=== PATIENT | male | born 1950 | race Caucasian/White ===

== ENCOUNTER 2016-07-04 19:31 | Emergency (ER) | payer MEDICARE, OTHER ==
--- NOTE | 2016-07-04 20:38 | ERNOTE ---
ER Male HPI Stated Complaint: ABD PAIN Time Seen by Provider: 07/04/16 20:18 Source: patient Exam Limitations: no limitations Immunizations: IMMUNIZATION HX Immunizations Up to Date Yes History of Influenza Vaccine Yes Hx Pneumococcal Vaccination No Allergies/Adverse Reactions: Allergies No Known Allergies Allergy (Verified 05/11/14 17:08) Home Medications: HOME MEDICATIONS Budesonide/Formoterol Fumarate [Symbicort 160-4.5 Mcg Inhaler] 2 puff IH BID #0 05/13/14 [Last Taken Unknown] DULoxetine HCL [Cymbalta] 30 mg PO BID capsule.sa 05/13/14 [Last Taken Unknown] Metoprolol Tartrate [Lopressor] 50 mg PO BID #0 05/13/14 [Last Taken Unknown] Montelukast Sodium [Singulair] 10 mg PO DAILY #0 05/13/14 [Last Taken Unknown] Oxybutynin Chloride [Ditropan Xl] 10 mg PO HS #0 05/13/14 [Last Taken Unknown] Tiotropium [place] [Spiriva] 1 cap IH DAILY #0 05/13/14 [Last Taken Unknown] Amitriptyline HCl [Elavil] 10 mg PO HS 07/04/16 [Last Taken Unknown] Amlodipine Besylate 5 mg PO DAILY 07/04/16 [Last Taken Unknown] Benazepril HCl [Lotensin] 10 mg PO DAILY 07/04/16 [Last Taken Unknown] Buspirone HCl 15 mg PO TID 07/04/16 [Last Taken Unknown] Furosemide [Lasix] 50 mg PO DAILY 07/04/16 [Last Taken Unknown] Glipizide/Metformin HCl [Glipizide-Metformin 5-500 mg] 1 each PO BID 07/04/16 [ Last Taken Unknown] Hydrocodone Bit/Acetaminophen 07/04/16 [Last Taken Unknown] Meloxicam [Mobic] 15 mg PO DAILY 07/04/16 [Last Taken Unknown] Omeprazole 20 mg PO DAILY 07/04/16 [Last Taken Unknown] Potassium Chloride [Klor-Con M10] 10 meq PO DAILY 07/04/16 [Last Taken Unknown] Ziprasidone HCl [Geodon] 20 mg PO HS 07/04/16 [Last Taken Unknown] clonazePAM [Klonopin] 0.5 mg PO BID 07/04/16 [Last Taken Unknown] Methylprednisolone [Medrol Dosepak] 4 mg PO DAILY #21 tab.ds.pk 07/05/16 [Last Taken Unknown] - History of Present Illness Narrative: Pt states he has had "kidney pain" for about a month. He thought initially that he had pulled a muscle but then began having difficulty with urinary incontinence and urgency. He states his urine is dark or orange colored. He is afraid that all the medicines that he has taken for many years are ruining his kidneys. Timing: Present: getting worse Quality: Present: moderate Onset Location: Present: right flank Radiation: Present: none Activities at Onset: Present: other - fall 1 month ago on to his back from standing Prior Abdominal Problems: Present: recent trauma Modifying Factors - (Improves): Present: lying down Modifying Factors - (Worsens): Present: movement Review of Systems - Review of Systems Constitutional: Present: no symptoms reported EYE: Present: no symptoms reported ENT: Present: no symptoms reported Respiratory: Absent: shortness of breath, wheezing Cardiology: Absent: chest pain Gastrointestinal/Abdominal: Absent: nausea, vomiting Genitourinary: Present: frequency - and has a hard time, other - difficulty getting to the bathroom without leaking Musculoskeletal: Present: back pain, muscle stiffness Skin: Present: no symptoms reported Neurological: Present: weakness - in his legs, at times they would just "give out" - Patient's Past Medical History Patient History - Medical: Anxiety, Chronic Pain, Diabetes Type 2, Depression, Osteoarthritis, Renal Disease Patient History - Cardiac/Respiratory: COPD, Hypertension Patient History - Cancer: No Hx of Cancer Patient History - Surgical Procedures: Other Patient History - Other: None - Social History Living Situations: home Abuse History: No History of abuse Psych History: Hx of Anxiety, Hx of Depression, Current tx/ever been on anti- depressants or anti-anxiety meds Smoking Status: Current every day smoker Have you smoked in the past 12 months: Yes Patient requests Smoking Cessation Consult: No Initiate information on Smoking Cessation: No Alcohol Use: none Drug Use: none - Immunizations Immunizations Up to Date: Yes Hx Pneumococcal Vaccination: No History of Influenza Vaccine: Yes Physical Exam - Physical Exam General Appearance: Present: wd/wn, alert, mild distress Eye Exam: Normal inspection: bilateral, PERRL: bilateral, EOMI: bilateral Ears, Nose, Throat: Present: normal ENT inspection Neck: Present: normal inspection, nontender Respiratory: Present: no respiratory distress, normal breath sounds, lungs clear Cardiovascular/Chest: Present: regular rate, rhythm, no murmur Gastrointestinal/Abdominal: Present: normal bowel sounds, nontender, soft, no organomegaly. Absent: guarding, rebound Back Exam: Present: CVA tenderness (R) - minimal. Absent: vertebral tenderness Extremity Exam: Present: extremity edema - L > R Neurological Exam: Present: alert, oriented, normal mood/affect, other - SLR negative bilateral Skin Exam: Present: normal color, cool/dry Lymphatic Exam: Present: no adenopathy ED Progress - Results and Orders Patient's Lab Results:: I have reviewed the patient's lab results. Results and Orders: Laboratory Tests 07/04/16 07/04/16 07/04/16 20:40 20:40 20:52 WBC 11.5 H Hgb 15.9 Hct 49.0 Plt Count 239 Sodium 141 Potassium 3.6 Chloride 105 Carbon Dioxide 26.9 Anion Gap 12.7 BUN 12 Creatinine 0.85 Est GFR (Non-Af Amer) 97 Random Glucose 77 Calcium 8.6 Total Bilirubin 0.4 AST 15 ALT 15 L Alkaline Phosphatase 103 Total Protein 6.9 Albumin 3.3 L Urine Color Yellow Urine Appearance Clear Urine pH 6.0 Ur Specific [place] 1.015 Urine Protein 30 H Urine Glucose (UA) Negative Urine Ketones Negative Urine Blood Negative Urine Nitrate Negative Urine Bilirubin Negative Prot Sulfosalicylic Acd Negative Urine Urobilinogen Normal Ur Leukocyte Esterase Negative Urine RBC 0-5 Urine WBC 0-5 Ur Epithelial Cells 0-5 Urine Bacteria None seen Urine Culture Comments No culture indicated - Vital Signs Patient's Vital Signs:: I have reviewed the patient's vital signs. Vital Signs: Vital Signs 07/04/16 19:31 Temperature 36.4 C L Pulse Rate 70 Respiratory 15 Rate Blood Pressure 165/83 O2 Sat by Pulse 95 Oximetry - X-Ray X-Ray #1 X-Ray: lumbosacral Interpretation: Reviewed by me X-ray Comments: IMPRESSION: NO ACUTE PROCESS. CHRONIC CHANGES ABOVE. Electronically signed by Armando Monteiro D.O.. - CT/Ultrasound CT/Ultrasound Narrative: CT lumbar spine. No acute osseous injury vertebral body heights maintained intact post. elements multilevel facet arthropathy mild levoscoliosis Neural canal stenosis at L4-5 - Progress/Reassessment Chief Complaint: Genitourinary Problem Progress:: Improved Progress Note-Subjective: 07/05/16 02:12 Pt still believes there is something more wrong with him. He cannot believe that it is related to his chronic back pain. I explained that his back will always give him trouble Departure Clinical Impression: Low back pain Qualifiers: Chronicity: acute Back pain laterality: right Sciatica presence: without sciatica Qualified Code(s): M54.5 - Low back pain - Departure Disposition: Home Follow Up Needed Condition: Fair Instructions: Back Pain, Adult, [id number] Additional Instructions: See your regular doctor if your pain does not improve. Referrals: Diony Camacho MD [Primary Care Provider] - Prescriptions: Methylprednisolone [Medrol Dosepak] 4 mg PO DAILY #21 tab.ds.pk
--- OUTSIDE RECORDS SUMMARY | 2016-07-04 20:47 | XMS REPORT | Continuity of Care Document ---
:1950 Author Organization [facility] ([facility]) Address [address] [place] [address] Phone [phone] Care Team Providers Name Role Phone Diony Gregory Primary Care Provider [phone] Source Comments This disclosure is being made pursuant to the Care Everywhere program, applicable federal and state laws, and may not contain all informaitonavailable regarding this patient.[facility] ([facility]) Active Allergies and Adverse Reactions No Known Allergies Current Medications Prescription Sig. Disp. Refills Start Date End Date Status HYDROcodone-acetaminop Take 1 Tab by mouth 60 Tab 0 05/29/2014 Active hen 10-325 mg per every 6 hours as tablet needed. Not to exceed 2 prn doses /24 hrs Indications: breakthrough pain ciprofloxacin HCl 500 Take 1 Tab (500 mg 14 Tab 0 06/16/2014 Active mg tablet total) by mouth 2 times daily doxycycline Take 1 Tab (100 mg 14 Tab 0 06/16/2014 Active monohydrate 100 mg total) by mouth 2 tablet times daily budesonide-formoterol Use 2 Puffs by 10.2 g 11 07/10/2014 Active (SYMBICORT) 160-4.5 inhalation 2 times mcg/Actuation inhaler daily benazepril 10 mg Take 10 mg by mouth 2 09/14/2015 Active tablet daily. busPIRone 15 mg tablet Take 15 mg by mouth 3 2 10/05/2015 Active times daily. NIFEdipine 60 mg ER Take 60 mg by mouth 2 09/14/2015 Active tablet daily. omeprazole 20 mg take 1 capsule (20 11 10/26/2015 Active enteric coated capsule mg) by oral route once daily before a meal albuterol 2.5 mg/3 mL Use 3 mL by Active inhalation solution inhalation every 4 hours as needed. montelukast 10 mg Take 10 mg by mouth Active tablet daily. tiotropium (SPIRIVA) Use 18 mcg by Active 18 mcg inhalation inhalation daily. capsule glyBURIDE-metFORMIN Take 1 tablet by Active 5-500 mg per tablet mouth every morning with breakfast. oxybutynin 10 mg CR Take 10 mg by mouth Active tablet daily. Active Problems Not on file Social History Tobacco Use Types Packs/Day Years Used Date Current Every Day Smoker Smokeless Tobacco: Never Used Tobacco Cessation:Ready to Quit: No; Counseling Given: Yes Comments: Last Filed Vital Signs Vital Sign Reading Time Taken Blood Pressure 183/106 11/11/2015 3:19 PM CDT Pulse 64 11/11/2015 3:19 PM CDT Temperature 36.4 C (97.5 F) 11/11/2015 3:19 PM CDT Respiratory Rate - - Height 1.88 m (6' 2") 11/11/2015 3:19 PM CDT Weight 151.955 kg (335 lb) 11/11/2015 3:19 PM CDT Body Mass Index 42.99 11/11/2015 3:19 PM CDT Oxygen Saturation - - Plan of Care Health Maintenance Due Date Last Done Comments HCV Screening 1950 Hepatitis B Vaccine (1 of 3 - Primary Series) 1950 Tdap Vaccine 10/30/1963 Lipid Disorder Screening 1970 Td Vaccine 1970 Pneumococcal Vaccine (1 of 1 - PPSV23) 10/30/1971 Colonoscopy 2002 Prostate Cancer Screening 2002 Zoster Vaccine 2012 Influenza Vaccine: Seasonal Completed Results from Last 3 Months Not on file
[2016-07-04 20:53] LABS: Hemoglobin 15.9 gm/dL (13.5-18.0); Mean Cell Volume 90.6 fl (78-100); Mean Corpuscular Hemoglobin 29.4 pg (27-31); Mean Corpuscular Hgb Conc 32.4 g/dl (32-36); Mean Platelet Volume 9.1 fl (6.0-9.5); Neutrophil # 8.6 K/mm3 (1.3-6.0); Neutrophil % 74.7 % (42-75.0); Platelet Count 239 K/mm3 (150-450); Red Blood Count 5.41 M/mm3 (4.7-6.0); Red Cell Distribution Width 14.3 % (11.5-14.0); White Blood Count 11.5 K/mm3 (4.0-10.5)
[2016-07-04 21:07] LABS: Albumin * 3.3 gm/dl (3.4-5.0); Anion Gap 12.7 mmol/L (6.8-13.8); BUN/Creatinine Ratio 14.1 (9.0-21.6); Bilirubin, Total 0.4 mg/dL (0.0-1.1); Ca. Corrected For Albumin 8.8 mg/dL (8.4-10.2); Calcium * 8.6 mg/dL (7.9-10.9); Carbon Dioxide 26.9 mmol/L (24-32.6); Potassium 3.6 mmol/L (3.4-4.6); Total Protein 6.9 gm/dL (6.2-8.2)
[2016-07-04 21:10] LABS: Urine Bilirubin Negative (NEGATIVE); Urine Blood Negative /ul (NEGATIVE); Urine Ketone Negative (NEGATIVE); Urine Nitrite Negative (NEGATIVE); Urine Protein 30 mg/dL (NEGATIVE); Urine Specific Gravity 1.015 SP.GR. (1.005-1.030); Urine Urobilinogen Normal (NORMAL)
[2016-07-04 21:27] LABS: Urine Appearance Clear; Urine Bacteria None Seen; Urine Color Yellow; Urine RBC 0-5 /hpf (0-5); Urine WBC 0-5 /hpf (0-5)
[2016-07-05] MEDS ORDERED: METHYLPREDNISOLONE SOD SUCC/PF 40 MG/ML VIAL IV ONE (01:39)
[2016-07-05] MEDS ORDERED: METHYLPREDNISOLONE SOD SUCC/PF 40 MG/ML VIAL ONE (01:45)
[2016-07-05 02:17] VITALS: BP 148/87
== END 2016-07-05 02:16 | disposition home or self-care (01) ==
LOC: ER 19:31
DX: M54.5 Low back pain (principal); F17.200 Nicotine dependence, unspecified, uncomplicated; M19.90 Unspecified osteoarthritis, unspecified site; I10 Essential (primary) hypertension; J44.9 Chronic obstructive pulmonary disease, unspecified; F41.9 Anxiety disorder, unspecified; F32.9 Major depressive disorder, single episode, unspecified; E11.9 Type 2 diabetes mellitus without complications

== ENCOUNTER 2016-07-25 07:24 | Observation (INO) | payer MEDICARE, OTHER ==
--- NOTE | 2016-07-25 07:53 | ERNOTE ---
<Ko Phelps - Last Filed: 07/25/16 07:44> Lower Extremity HPI - Narrative Date of Service: 07/25/16 - General Lower Extremities Pain: hip: right, knee: right Time Seen by Provider: 07/25/16 07:36 Source: patient, EMS - Immun/Allergies/Home Medications Immunizations: IMMUNIZATION HX Immunizations Up to Date Yes History of Influenza Vaccine Yes Hx Pneumococcal Vaccination No Allergies/Adverse Reactions: Allergies Allergy/AdvReac Type Severity Reaction Status Date / Time No Known Allergies Allergy Verified 07/25/16 07:43 Home Medications: HOME MEDICATIONS Budesonide/Formoterol Fumarate [Symbicort 160-4.5 Mcg Inhaler] 2 puff IH BID #0 05/13/14 [Last Taken Unknown] DULoxetine HCL [Cymbalta] 30 mg PO BID capsule.sa 05/13/14 [Last Taken Unknown] Metoprolol Tartrate [Lopressor] 50 mg PO BID #0 05/13/14 [Last Taken Unknown] Montelukast Sodium [Singulair] 10 mg PO DAILY #0 05/13/14 [Last Taken Unknown] Oxybutynin Chloride [Ditropan Xl] 10 mg PO HS #0 05/13/14 [Last Taken Unknown] Tiotropium [place] [Spiriva] 1 cap IH DAILY #0 05/13/14 [Last Taken Unknown] Amitriptyline HCl [Elavil] 10 mg PO HS 07/04/16 [Last Taken Unknown] Amlodipine Besylate 5 mg PO DAILY 07/04/16 [Last Taken Unknown] Benazepril HCl [Lotensin] 10 mg PO DAILY 07/04/16 [Last Taken Unknown] Buspirone HCl 15 mg PO TID 07/04/16 [Last Taken Unknown] Furosemide [Lasix] 50 mg PO DAILY 07/04/16 [Last Taken Unknown] Glipizide/Metformin HCl [Glipizide-Metformin 5-500 mg] 1 each PO BID 07/04/16 [ Last Taken Unknown] Hydrocodone Bit/Acetaminophen 2 tab PO Q6H 07/04/16 [Last Taken Unknown] Meloxicam [Mobic] 15 mg PO DAILY 07/04/16 [Last Taken Unknown] Omeprazole 20 mg PO DAILY 07/04/16 [Last Taken Unknown] Potassium Chloride [Klor-Con M10] 10 meq PO DAILY 07/04/16 [Last Taken Unknown] clonazePAM [Klonopin] 2 mg PO BID 07/04/16 [Last Taken Unknown] Albuterol Sulfate [Albuterol Sulfate 2.5 MG/3 ML] 2.5 mg IH TID 07/25/16 [Last Taken Unknown] - History of Present Illness Narrative: 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 Has been using wheelchair for lower extremity hemiparesis. Yesterday was transferring from his wheelchair to the toilet when he fell. Says his right leg was caught behind him but he did not come to the hospital. This morning called the ambulance for continued pain in his right leg and difficultly using his leg. Previously had similar right lower abdominal pain on 07/05/[address] showed extensive degenerative disc disease of his lumbar spin. Loss of Consciousness: Reports: no loss of consciousness Review of Systems - Review of Systems Constitutional: Present: no symptoms reported Respiratory: Present: no symptoms reported Cardiology: Present: no symptoms reported Gastrointestinal/Abdominal: Present: no symptoms reported Skin: Present: no symptoms reported - Patient's Past Medical History Patient History - Medical: Anxiety, Chronic Pain, Diabetes Type 2, Depression, Osteoarthritis, Renal Disease Patient History - Cardiac/Respiratory: COPD, Hypertension Patient History - Cancer: No Hx of Cancer Patient History - Surgical Procedures: Other Patient History - Other: None - Social History Living Situations: alone Abuse History: No History of abuse Psych History: Hx of Anxiety, Hx of Depression, Current tx/ever been on anti- depressants or anti-anxiety meds Alcohol Use: none Drug Use: none - Immunizations Immunizations Up to Date: Yes Hx Pneumococcal Vaccination: No History of Influenza Vaccine: Yes Physical Exam - Physical Exam General Appearance: Present: wd/wn, alert, obese Ears, Nose, Throat: Present: normal ENT inspection Neck: Present: normal inspection Respiratory: Present: no respiratory distress Cardiovascular/Chest: Present: regular rate, rhythm Gastrointestinal/Abdominal: Present: nontender, soft Extremity Exam: Present: other - right knee tender along joint but no fluid, redness, and passive FROM. No localized thigh, calf tenderness. Diffuse non- pitting edema. ED Progress - Vital Signs Patient's Vital Signs:: I have reviewed the patient's vital signs. Vital Signs: Vital Signs 07/25/16 07:32 Temperature 37 C Pulse Rate 67 Respiratory 18 Rate Blood Pressure 149/76 O2 Sat by Pulse 95 Oximetry - Progress/Reassessment Chief Complaint: Lower Extremity Pain/ Injury - Transfer of Care Physician Sign Out: Ko Phelps Receiving Physician: Joni Saba Pending Results: Labs, X-ray results Expected Disposition: Discharge Departure Clinical Impression: Falls, Musculoskeletal pain, Intractable pain - Departure Disposition: [facility] Condition: Stable <Joni Saba - Last Filed: 07/25/16 14:08> Lower Extremity HPI - Immun/Allergies/Home Medications Immunizations: IMMUNIZATION HX Immunizations Up to Date Yes History of Influenza Vaccine Yes Hx Pneumococcal Vaccination No ED Progress - Results and Orders Patient's Lab Results:: I have reviewed the patient's lab results. - Vital Signs Patient's Vital Signs:: I have reviewed the patient's vital signs. Vital Signs: Vital Signs 07/25/16 07/25/16 07/25/16 07:32 08:10 08:47 Temperature 37 C Pulse Rate 67 70 72 Respiratory 18 Rate Blood Pressure 149/76 163/59 160/68 O2 Sat by Pulse 95 95 95 Oximetry 07/25/16 07/25/16 07/25/16 09:34 09:54 10:13 Temperature Pulse Rate 63 59 L 61 Respiratory 16 14 12 Rate Blood Pressure 150/70 145/77 142/68 O2 Sat by Pulse 95 95 95 Oximetry 07/25/16 07/25/16 07/25/16 10:27 10:42 10:55 Temperature Pulse Rate 74 72 66 Respiratory Rate Blood Pressure 148/106 160/84 159/60 O2 Sat by Pulse 94 96 94 Oximetry 07/25/16 07/25/16 07/25/16 11:36 11:46 12:10 Temperature Pulse Rate 66 70 70 Respiratory 16 Rate Blood Pressure 157/71 157/71 167/68 O2 Sat by Pulse 95 95 92 Oximetry - X-Ray X-Ray #1 X-Ray: chest Interpretation: Interp. by me X-ray Comments: NAPP. Awaiting official CXR reading X-Ray #2 X-Ray: pelvis Interpretation: Interp. by me X-ray Comments: Official x-ray report reviewed X-Ray #3 X-Ray: femur Interpretation: Interp. by me X-ray Comments: I reviewed official x-ray report X-Ray #4 X-Ray: tibula/fibula Interpretation: Interp. by me X-ray Comments: I reviewed official x-ray report. - Progress/Reassessment Progress Note-Subjective: 07/25/16 14:03 Patient checked out to me by Dr Phelps at shift change pending return of x-rays. X-ray reports reviewed. No fractue. His GF is here and both he and GF feel he cannot go home. He is too weak and cannot get around with his wheelchair. They relates gradually worsening weakness to the point he cannot function at home. Dr Phelps told me he had been on the ground for several hours but when I asked the patient he wasn't sure how long. He was given IV Morphine. Labs and x-rays reviewed. Case management involved, he would like NH placement but no NH available today so Case Management recommends Obs and additional look for placement. Pt agreeable. D/W Dr Gregory who will admit Obs.
--- OUTSIDE RECORDS SUMMARY | 2016-07-25 08:01 | XMS REPORT | Continuity of Care Document ---
:1950 Author Organization [facility] ([facility]) Address [address] [place] [address] Phone [phone] Care Team Providers Name Role Phone Diony Gregory Primary Care Provider [phone] Source Comments This disclosure is being made pursuant to the Care Everywhere program, applicable federal and state laws, and may not contain all informaitonavailable regarding this patient.[facility] ([facility]) Active Allergies and Adverse Reactions No Known [...]
[2016-07-25 08:59] LABS: Urine Bilirubin Negative (NEGATIVE); Urine Blood Negative /ul (NEGATIVE); Urine Ketone Negative (NEGATIVE); Urine Nitrite Negative (NEGATIVE); Urine Protein Negative (NEGATIVE); Urine Urobilinogen Normal (NORMAL)
[2016-07-25 09:07] LABS: Urine Appearance Slightly Cloudy; Urine Bacteria TRACE; Urine Color Yellow; Urine RBC None Seen /hpf (0-5); Urine WBC None Seen /hpf (0-5)
[2016-07-25] MEDS ORDERED: NICOTINE 21 MG PATC TD ONE (09:50)
[2016-07-25] MEDS: NICOTINE 21 MG PATC TD SCH (09:51)
[2016-07-25] MEDS ORDERED: HYDROcodone/ACETAMINOPHEN 1 EACH TABLET PO ONE (11:40)
[2016-07-25] MEDS ORDERED: HYDROcodone/ACETAMINOPHEN 1 EACH TABLET ONE (11:41)
[2016-07-25] MEDS ORDERED: MORPHINE SULFATE 4 MG/ML SYRG IV ONE (12:29)
[2016-07-25] MEDS ORDERED: MORPHINE SULFATE 2 MG/ML DISP.SYRIN IV ONE (12:55)
[2016-07-25] MEDS ORDERED: MORPHINE SULFATE 2 MG/ML DISP.SYRIN ONE (12:59)
[2016-07-25 13:04] LABS: Hematocrit 50.3 % (42.0-52.0); Hemoglobin 16.1 gm/dL (13.5-18.0); Mean Cell Volume 90.8 fl (78-100); Mean Corpuscular Hemoglobin 29.1 pg (27-31); Mean Platelet Volume 9.6 fl (6.0-9.5); Neutrophil # 6.7 K/mm3 (1.3-6.0); Neutrophil % 73.7 % (42-75.0); Platelet Count 228 K/mm3 (150-450); Red Blood Count 5.54 M/mm3 (4.7-6.0); Red Cell Distribution Width 14.5 % (11.5-14.0)
[2016-07-25 13:19] LABS: Albumin * 3.2 gm/dl (3.4-5.0); Anion Gap 10.4 mmol/L (6.8-13.8); BUN/Creatinine Ratio 14.1 (9.0-21.6); Bilirubin, Total 0.3 mg/dL (0.0-1.1); Ca. Corrected For Albumin 9.4 mg/dL (8.4-10.2); Calcium * 9.1 mg/dL (7.9-10.9); Carbon Dioxide 33.6 mmol/L (24-32.6)
--- OUTSIDE RECORDS SUMMARY | 2016-07-25 15:10 | XMS REPORT | Continuity of Care Document ---
:1950 Author Organization [facility] ([facility]) Address [address] [place] [address] Phone [phone] Care Team Providers Name Role Phone Diony Gregory Primary Care Provider [phone] Source Comments This disclosure is being made pursuant to the Care Everywhere program, applicable federal and state laws, and may not contain all informaitonavailable regarding this patient.[facility] ([facility]) Active Allergies and Adverse Reactions No [...]
[2016-07-25] MEDS: ALBUTEROL SULFATE 2.5 MG/3 ML VIAL.NEB IH SCH (18:14)
[2016-07-25] MEDS: ENOXAPARIN SODIUM 40 MG/0.4 ML SYRG SC SCH (18:28)
[2016-07-25] MEDS: HYDROcodone/ACETAMINOPHEN 1 EACH TABLET PO PRN (19:03)
--- NOTE | 2016-07-25 19:51 | HP ---
<Jennifer Major - Last Filed: 07/26/16 05:41> Chief Complaint - Chief Complaint Date of Service: 07/25/16 Time of Service: 19:48 Chief Complaint: " Fall, Weakness,". Source of HPI- Pt; reliable, ER provider notes, Pt's EHR History of Present Illness: Mr. Parr is a 65-yr-old WM pt of Dr. Diony Camacho with a PMH of: Chronic Pain Syndrome, COPD, Dementia, Depression, DM II, HTN & Neuropathy. 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 He reports that he is wheel chair bound and this morning while transferring from it to the toilet, he fell. He landed on his buttocks during that fall. He states that he was on the floor for about 30 minutes and his neighbour heard him yelling for assistance. He came to aid him and called the EMS, and he was brought to the [facility] ER. He denies his head hitting the surface or objects during the fall. He denies having dizziness prior to the fall.There was no loss of consciousness with the fall also. He states that his legs just "gave out on him." During evaluation at the ED, multiple radiological imaging involving Pelvis, Femur, & Tibial/fibula did not indicate any fractures. His CXR was also negative of any acute findings. His lab-work was mostly unremarkable and the UA did not indicate any infection. He will be admitted under observation status for senior living placement finding as he lives independently and has a high risks for falls. - Patient's Past Medical History Patient History - Medical: Anxiety, Chronic Pain, Diabetes Type 2, Depression, Osteoarthritis, Renal Disease Patient History - Cardiac/Respiratory: COPD, Hypertension, Home O2 Use Patient History - Cancer: No Hx of Cancer Patient History - Surgical Procedures: Other Patient History - Other: None - Social History Living Situations: alone Abuse History: No History of abuse Psych History: Hx of Anxiety, Hx of Depression, Current tx/ever been on anti- depressants or anti-anxiety meds Smoking Status: Current every day smoker - 1 ppd. Have you smoked in the past 12 months: Yes Do you dip or chew tobacco: No Patient requests Smoking Cessation Consult: Yes Initiate information on Smoking Cessation: Yes Alcohol Use: none Drug Use: none - Immunizations Immunizations Up to Date: Yes Hx Pneumococcal Vaccination: No History of Influenza Vaccine: Yes Review Of Systems (GEN) - Review of Systems Generalized/Overall Review: Present: Weakness, Weight loss. Absent: Chills, Fever, Malaise, Diaphoresis, Fatigue EENTM: Absent: Eye Pain, Blurred Vision, Nose Congestion Respiratory: Present: Cough - Occaional.. Absent: Shortness of Breath Abdominal: Absent: Nausea, Vomiting, Hematemesis, Constipation, Diarrhea Genitourinary: Absent: Burning, Itching, Urgency, Frequency, Hematuria Musculoskeletal: Absent: Joint Pain, Back Pain, Muscle Pain Neurological: Present: Weakness. Absent: Headache, Anxiety, Depressed Skin: Present: Dryness Endocrine: Absent: Increased Hunger, Increased Thirst Misc: All systems neg except as marked Allergies/Adverse Reactions: Allergies Allergy/AdvReac Type Severity Reaction Status Date / Time No Known Allergies Allergy Verified 07/25/16 07:43 Home Medications: HOME MEDICATIONS Budesonide/Formoterol Fumarate [Symbicort 160-4.5 Mcg Inhaler] 2 puff IH BID #0 05/13/14 [Last Taken Unknown] Metoprolol Tartrate [Lopressor] 50 mg PO BID #0 05/13/14 [Last Taken Unknown] Tiotropium [place] [Spiriva] 1 cap IH DAILY #0 05/13/14 [Last Taken Unknown] Amitriptyline HCl [Elavil] 10 mg PO QID 07/04/16 [Last Taken Unknown] Amlodipine Besylate 5 mg PO DAILY 07/04/16 [Last Taken Unknown] Benazepril HCl [Lotensin] 10 mg PO DAILY 07/04/16 [Last Taken Unknown] Glipizide/Metformin HCl [Glipizide-Metformin 5-500 mg] 1 each PO BID 07/04/16 [ Last Taken Unknown] Meloxicam [Mobic] 15 mg PO DAILY 07/04/16 [Last Taken Unknown] Omeprazole 20 mg PO DAILY 07/04/16 [Last Taken Unknown] Potassium Chloride [Klor-Con M10] 10 meq PO DAILY 07/04/16 [Last Taken Unknown] clonazePAM [Klonopin] 2 mg PO TID 07/04/16 [Last Taken Unknown] Albuterol Sulfate [Albuterol Sulfate 2.5 MG/3 ML] 2.5 mg IH TID 07/25/16 [Last Taken Unknown] Montelukast Sodium [Singulair] 10 mg PO HS 07/25/16 [Last Taken Unknown] [place] 5-325 2 tab PO Q6H PRN 07/25/16 [Last Taken Unknown] Oxybutynin Chloride [Ditropan Xl] 10 mg PO DAILY 07/25/16 [Last Taken Unknown] Exam - Exam Vital Signs: Vital Signs - Last Taken Temp 36.6 C 07/25/16 19:21 Pulse 80 07/25/16 19:21 Resp 20 07/25/16 19:21 BP 182/87 07/25/16 19:21 Pulse Ox 95 07/25/16 19:21 Constitutional: Present: Alert, Oriented x3, Cooperative, No distress, Looks Older than stated age ENT Exam: Present: normal ENT inspection, hearing grossly normal Eye Exam: bilateral eye: normal inspection, PERRL Neck: Present: full range of motion, supple, normal inspection Back Exam: Present: no CVA tenderness Respiratory: Present: lungs clear, no accessory muscle use, No wheezing Cardiovascular/Chest: Present: normal peripheral pulses, regular rate, rhythm, no murmur Abdomen: Present: Normal bowel sounds, soft, nontender, obese /Rectal: Present: Exam deferred Extremity: Present: normal range of motion, lower extremity edema - +2-3 ble pitting edema. Skin Exam: Present: no cyanosis, cool/dry Lymphatic: Present: no adenopathy Neurologic: Present: no motor/sensory deficits, alert, oriented x 3, depressed affect Appearance: Present: appropriate appearance, appropriate insight Eye contact: Present: cooperative, good eye contact, normal speech Thoughts: Present: normal thought pattern, no apparent hallucination Diagnostic Studies: Laboratory Results WBC 9.0 K/mm3 (4.0-10.5) 07/25/16 12:55 RBC 5.54 M/mm3 (4.7-6.0) 07/25/16 12:55 Hgb 16.1 gm/dL (13.5-18.0) 07/25/16 12:55 Hct 50.3 % (42.0-52.0) 07/25/16 12:55 MCV 90.8 fl (78-100) 07/25/16 12:55 MCH 29.1 pg (27-31) 07/25/16 12:55 MCHC 32.0 g/dl (32-36) 07/25/16 12:55 RDW 14.5 % (11.5-14.0) H 07/25/16 12:55 Plt Count 228 K/mm3 (150-450) 07/25/16 12:55 MPV 9.6 fl (6.0-9.5) H 07/25/16 12:55 Immature Gran % (Auto) 0.70 % (0.001-0.429) H 07/25/16 12:55 Immature Gran # (Auto) 0.06 K/mm3 (0.000-0.0310) H 07/25/16 12:55 Neutrophils % 73.7 % (42-75.0) 07/25/16 12:55 Lymphocytes % 18.0 % (20-51) L 07/25/16 12:55 Monocytes % 5.9 % (0.0-9) 07/25/16 12:55 Eosinophils % 1.1 % (0.0-3.0) 07/25/16 12:55 Basophils % 0.6 % (0.0-1.0) 07/25/16 12:55 Nucleated RBC % 0.0 k/mm3 (0-1) 07/25/16 12:55 Neutrophils # 6.7 K/mm3 (1.3-6.0) H 07/25/16 12:55 Lymphocytes # 1.6 k/mm3 (1.5-3.5) 07/25/16 12:55 Monocytes # 0.5 k/mm3 (0.0-1.0) 07/25/16 12:55 Eosinophils # 0.1 k/mm3 (0.0-0.7) 07/25/16 12:55 Absolute Basophils 0.1 k/mm3 (0.0-0.1) 07/25/16 12:55 Sodium 144 mmol/L (132-142) H 07/25/16 12:55 Plasma Sodium 144 mmol/L (130-142) H 07/25/16 12:55 Potassium 4.0 mmol/L (3.4-4.6) 07/25/16 12:55 Chloride 104 mmol/L (97-106) 07/25/16 12:55 Carbon Dioxide 33.6 mmol/L (24-32.6) H 07/25/16 12:55 Anion Gap 10.4 mmol/L (6.8-13.8) 07/25/16 12:55 BUN 12 mg/dL (6-23) 07/25/16 12:55 Creatinine 0.85 mg/dL (0.4-1.4) 07/25/16 12:55 Est GFR (Non-Af Amer) 97 mL/min (60-130) 07/25/16 12:55 BUN/Creatinine Ratio 14.1 (9.0-21.6) 07/25/16 12:55 Random Glucose 104 mg/dL (70-110) 07/25/16 12:55 Calcium 9.1 mg/dL (7.9-10.9) 07/25/16 12:55 Calcium Adj for Albumin 9.4 mg/dL (8.4-10.2) 07/25/16 12:55 Total Bilirubin 0.3 mg/dL (0.0-1.1) 07/25/16 12:55 AST 13 U/L (0-48) 07/25/16 12:55 ALT 18 U/L (19-67) L 07/25/16 12:55 Alkaline Phosphatase 109 U/L (50-170) 07/25/16 12:55 Total Protein 7.0 gm/dL (6.2-8.2) 07/25/16 12:55 Albumin 3.2 gm/dl (3.4-5.0) L 07/25/16 12:55 Urine Color Yellow 07/25/16 08:48 Urine Appearance Slightly cloudy 07/25/16 08:48 Urine pH 7.0 pH (5.0-7.0) 07/25/16 08:48 Ur Specific [place] 1.010 SP.GR. (1.005-1.030) 07/25/16 08:48 Urine Protein Negative mg/dL (NEGATIVE) 07/25/16 08:48 Urine Glucose (UA) Negative mg/dL (NEGATIVE) 07/25/16 08:48 Urine Ketones Negative mg/dL (NEGATIVE) 07/25/16 08:48 Urine Blood Negative /ul (NEGATIVE) 07/25/16 08:48 Urine Nitrate Negative (NEGATIVE) 07/25/16 08:48 Urine Bilirubin Negative mg/dl (NEGATIVE) 07/25/16 08:48 Urine Urobilinogen Normal EU/dl (NORMAL) 07/25/16 08:48 Ur Leukocyte Esterase Negative /ul (NEGATIVE) 07/25/16 08:48 Urine RBC None seen /hpf (0-5) 07/25/16 08:48 Urine WBC None seen /hpf (0-5) 07/25/16 08:48 Ur Epithelial Cells 0-5 /hpf (0-5) 07/25/16 08:48 Urine Bacteria Trace (NONE) 07/25/16 08:48 Urine Culture Comments No culture indicated 07/25/16 08:48 Assessment/Plan - Assessment/Plan (1) Falls Assessment: The imaging test did not show any acute findings involving fractures. The UA was negative for infection and the CXR did not have any acute findings. Will have case management assist in placement finding. Problem: Acute (2) Discharge planning issues Assessment: As stated above, he lives independently and lacks social support from family. He relies on neighbours who check on him periodically. He is at a high risk for recurrent falls is he goes back to his home and would therefore benefit from placement at a senior living. Case mgt will assist in this process. Problem: Acute (3) COPD (chronic obstructive pulmonary disease) Assessment: Stable- On neb treatments, Singulair,Spiriva & Advair. Problem: Chronic (4) Diabetes Assessment: Stable - on metformin & Glipizide. Will monitor blood sugars ACHS to detect hypoglycemia that can be induced from glipizide. Problem: Chronic QualifierTitle: Diabetes mellitus type: type 2 (5) HTN (hypertension) Assessment: Stable- Continue Amlodipine and metoprolol. Problem: Acute (6) Hyperlipemia Problem: Chronic (7) Weakness of both lower limbs Problem: Chronic <Diony Camacho - Last Filed: 07/26/16 07:39> Immunizations: IMMUNIZATION HX Immunizations Up to Date Yes History of Influenza Vaccine Yes Hx Pneumococcal Vaccination No Exam - Exam Vital Signs: Vital Signs - Last Taken Temp 36.5 C 07/26/16 03:35 Pulse 79 07/26/16 06:25 Resp 21 H 07/26/16 06:25 BP 187/87 07/26/16 03:35 Pulse Ox 95 07/26/16 06:15 Diagnostic Studies: Laboratory Results WBC 9.0 K/mm3 (4.0-10.5) 07/25/16 12:55 RBC 5.54 M/mm3 (4.7-6.0) 07/25/16 12:55 Hgb 16.1 gm/dL (13.5-18.0) 07/25/16 12:55 Hct 50.3 % (42.0-52.0) 07/25/16 12:55 MCV 90.8 fl (78-100) 07/25/16 12:55 MCH 29.1 pg (27-31) 07/25/16 12:55 MCHC 32.0 g/dl (32-36) 07/25/16 12:55 RDW 14.5 % (11.5-14.0) H 07/25/16 12:55 Plt Count 228 K/mm3 (150-450) 07/25/16 12:55 MPV 9.6 fl (6.0-9.5) H 07/25/16 12:55 Immature Gran % (Auto) 0.70 % (0.001-0.429) H 07/25/16 12:55 Immature Gran # (Auto) 0.06 K/mm3 (0.000-0.0310) H 07/25/16 12:55 Neutrophils % 73.7 % (42-75.0) 07/25/16 12:55 Lymphocytes % 18.0 % (20-51) L 07/25/16 12:55 Monocytes % 5.9 % (0.0-9) 07/25/16 12:55 Eosinophils % 1.1 % (0.0-3.0) 07/25/16 12:55 Basophils % 0.6 % (0.0-1.0) 07/25/16 12:55 Nucleated RBC % 0.0 k/mm3 (0-1) 07/25/16 12:55 Neutrophils # 6.7 K/mm3 (1.3-6.0) H 07/25/16 12:55 Lymphocytes # 1.6 k/mm3 (1.5-3.5) 07/25/16 12:55 Monocytes # 0.5 k/mm3 (0.0-1.0) 07/25/16 12:55 Eosinophils # 0.1 k/mm3 (0.0-0.7) 07/25/16 12:55 Absolute Basophils 0.1 k/mm3 (0.0-0.1) 07/25/16 12:55 Sodium 144 mmol/L (132-142) H 07/25/16 12:55 Plasma Sodium 144 mmol/L (130-142) H 07/25/16 12:55 Potassium 4.0 mmol/L (3.4-4.6) 07/25/16 12:55 Chloride 104 mmol/L (97-106) 07/25/16 12:55 Carbon Dioxide 33.6 mmol/L (24-32.6) H 07/25/16 12:55 Anion Gap 10.4 mmol/L (6.8-13.8) 07/25/16 12:55 BUN 12 mg/dL (6-23) 07/25/16 12:55 Creatinine 0.85 mg/dL (0.4-1.4) 07/25/16 12:55 Est GFR (Non-Af Amer) 97 mL/min (60-130) 07/25/16 12:55 BUN/Creatinine Ratio 14.1 (9.0-21.6) 07/25/16 12:55 Random Glucose 104 mg/dL (70-110) 07/25/16 12:55 Calcium 9.1 mg/dL (7.9-10.9) 07/25/16 12:55 Calcium Adj for Albumin 9.4 mg/dL (8.4-10.2) 07/25/16 12:55 Total Bilirubin 0.3 mg/dL (0.0-1.1) 07/25/16 12:55 AST 13 U/L (0-48) 07/25/16 12:55 ALT 18 U/L (19-67) L 07/25/16 12:55 Alkaline Phosphatase 109 U/L (50-170) 07/25/16 12:55 Total Protein 7.0 gm/dL (6.2-8.2) 07/25/16 12:55 Albumin 3.2 gm/dl (3.4-5.0) L 07/25/16 12:55 Urine Color Yellow 07/25/16 08:48 Urine Appearance Slightly cloudy 07/25/16 08:48 Urine pH 7.0 pH (5.0-7.0) 07/25/16 08:48 Ur Specific [place] 1.010 SP.GR. (1.005-1.030) 07/25/16 08:48 Urine Protein Negative mg/dL (NEGATIVE) 07/25/16 08:48 Urine Glucose (UA) Negative mg/dL (NEGATIVE) 07/25/16 08:48 Urine Ketones Negative mg/dL (NEGATIVE) 07/25/16 08:48 Urine Blood Negative /ul (NEGATIVE) 07/25/16 08:48 Urine Nitrate Negative (NEGATIVE) 07/25/16 08:48 Urine Bilirubin Negative mg/dl (NEGATIVE) 07/25/16 08:48 Urine Urobilinogen Normal EU/dl (NORMAL) 07/25/16 08:48 Ur Leukocyte Esterase Negative /ul (NEGATIVE) 07/25/16 08:48 Urine RBC None seen /hpf (0-5) 07/25/16 08:48 Urine WBC None seen /hpf (0-5) 07/25/16 08:48 Ur Epithelial Cells 0-5 /hpf (0-5) 07/25/16 08:48 Urine Bacteria Trace (NONE) 07/25/16 08:48 Urine Culture Comments No culture indicated 07/25/16 08:48 Assessment/Plan - Narrative Narrative: Girlfriend stays with him most of the time, but he was unable to get up for a number of hours. Home health comes in. Right leg is sore, but is improving. He was admitted because it appeared he required a higher level of care than remaining at home. I directed our nurse practitioner hospitalist care for this patient.
[2016-07-25] MEDS: FLUTICASONE/SALMETEROL 14 PUFF DISK.W.DEV IH SCH (20:44)
[2016-07-25] MEDS: MONTELUKAST SODIUM 10 MG TABLET PO SCH (20:45)
[2016-07-25] MEDS: glipiZIDE 5 MG TABLET PO SCH (20:45)
[2016-07-25] MEDS: metFORMIN HCL 500 MG TABLET PO SCH (20:45)
[2016-07-25] MEDS: AMITRIPTYLINE HCL 10 MG TABLET PO SCH (20:45)
[2016-07-25] MEDS: OXYBUTYNIN CHLORIDE 5 MG TABLET PO SCH (20:45)
[2016-07-25] MEDS: clonazePAM 1 MG TABLET PO SCH (20:45)
[2016-07-25] MEDS: METOPROLOL TARTRATE 50 MG TABLET PO SCH (20:46)
[2016-07-25] MEDS ORDERED: [UNRECOGNIZED DRUG - OTHER] PO SCH (21:00)
[2016-07-25] MEDS ORDERED: METFORMIN HCL PO SCH (21:00)
[2016-07-25] MEDS ORDERED: GLIPIZIDE PO SCH (21:00)
[2016-07-26] MEDS: ALBUTEROL SULFATE 2.5 MG/3 ML VIAL.NEB IH SCH ×3 (06:15→19:52)
--- NOTE | 2016-07-26 07:49 | DS ---
Description of Stay: Stable in the hospital. We thought he would require a higher level of care in intermediate, but he insisted on returning to his own home with his girlfriend, home health and pursuing a disability waiver. Procedures Performed: none Discharge Disposition: Home self care Disposition: Home self-care Condition: Good Discharge Activity: Activity as tolerated Discharge Diet: General/regular food Problem Oriented Discharge Instructions to Patient/Family: Fall Prevention in the Home, [id number] Additional Patient Instructions (free text): Refer ongoing home health. PT OT in home via home health. Daily home health for wound care, 3 stage two pressure sores, two on posterior buttocks, one posterior left upper thigh, wash, use mepilex, till healed. When healed, then once weekly home health Complete Home Medications List: Complete Home Medication List: Budesonide/Formoterol Fumarate [Symbicort 160-4.5 Mcg Inhaler] 2 puff IH BID #0 05/13/14 Metoprolol Tartrate [Lopressor] 50 mg PO BID #0 05/13/14 Tiotropium [place] [Spiriva] 1 cap IH DAILY #0 05/13/14 Amitriptyline HCl [Elavil] 10 mg PO QID 07/04/16 Amlodipine Besylate 5 mg PO DAILY 07/04/16 Benazepril HCl [Lotensin] 10 mg PO DAILY 07/04/16 Glipizide/Metformin HCl [Glipizide-Metformin 5-500 mg] 1 each PO BID 07/04/16 Meloxicam [Mobic] 15 mg PO DAILY 07/04/16 Omeprazole 20 mg PO DAILY 07/04/16 Potassium Chloride [Klor-Con M10] 10 meq PO DAILY 07/04/16 clonazePAM [Klonopin] 2 mg PO TID 07/04/16 Albuterol Sulfate [Albuterol Sulfate 2.5 MG/3 ML] 2.5 mg IH TID 07/25/16 Montelukast Sodium [Singulair] 10 mg PO HS 07/25/16 [place] 5-325 2 tab PO Q6H PRN 07/25/16 Oxybutynin Chloride [Ditropan Xl] 10 mg PO DAILY 07/25/16
[2016-07-26] MEDS: PANTOPRAZOLE SODIUM 20 MG TABLET.DR PO SCH (07:58)
[2016-07-26] MEDS: clonazePAM 1 MG TABLET PO SCH ×3 (07:58→21:22)
[2016-07-26] MEDS: BENAZEPRIL HCL 10 MG TABLET PO SCH (09:40)
[2016-07-26] MEDS: MELOXICAM 15 MG TABLET PO SCH (09:40)
[2016-07-26] MEDS: METOPROLOL TARTRATE 50 MG TABLET PO SCH ×2 (09:40→21:23)
[2016-07-26] MEDS: FLUTICASONE/SALMETEROL 14 PUFF DISK.W.DEV IH SCH ×2 (09:40→21:22)
[2016-07-26] MEDS: TIOTROPIUM BROMIDE 5 CAP INHALER IH SCH (09:40)
[2016-07-26] MEDS: amLODIPine BESYLATE 5 MG TABLET PO SCH (09:41)
[2016-07-26] MEDS: OXYBUTYNIN CHLORIDE 5 MG TABLET PO SCH ×2 (09:41→21:23)
[2016-07-26] MEDS: AMITRIPTYLINE HCL 10 MG TABLET PO SCH ×4 (09:41→21:23)
[2016-07-26] MEDS: POTASSIUM CHLORIDE 10 MEQ TABLET.SA PO SCH (09:41)
[2016-07-26] MEDS: glipiZIDE 5 MG TABLET PO SCH ×2 (09:44→17:17)
[2016-07-26] MEDS: NICOTINE 21 MG PATC TD SCH (09:44)
[2016-07-26] MEDS: metFORMIN HCL 500 MG TABLET PO SCH ×2 (09:44→17:17)
[2016-07-26] MEDS: ENOXAPARIN SODIUM 40 MG/0.4 ML SYRG SC SCH (17:18)
[2016-07-26] MEDS: MONTELUKAST SODIUM 10 MG TABLET PO SCH (21:23)
[2016-07-27] MEDS: PANTOPRAZOLE SODIUM 20 MG TABLET.DR PO SCH (07:22)
[2016-07-27] MEDS: clonazePAM 1 MG TABLET PO SCH ×2 (07:22→12:59)
[2016-07-27] MEDS: HYDROcodone/ACETAMINOPHEN 1 EACH TABLET PO PRN (07:22)
[2016-07-27] MEDS: OXYBUTYNIN CHLORIDE 5 MG TABLET PO SCH (09:27)
[2016-07-27] MEDS: FLUTICASONE/SALMETEROL 14 PUFF DISK.W.DEV IH SCH (09:27)
[2016-07-27] MEDS: AMITRIPTYLINE HCL 10 MG TABLET PO SCH ×2 (09:27→12:57)
[2016-07-27] MEDS: metFORMIN HCL 500 MG TABLET PO SCH (09:28)
[2016-07-27] MEDS: glipiZIDE 5 MG TABLET PO SCH (09:28)
[2016-07-27] MEDS: POTASSIUM CHLORIDE 10 MEQ TABLET.SA PO SCH (09:28)
[2016-07-27] MEDS: METOPROLOL TARTRATE 50 MG TABLET PO SCH (09:28)
[2016-07-27] MEDS: BENAZEPRIL HCL 10 MG TABLET PO SCH (09:29)
[2016-07-27] MEDS: MELOXICAM 15 MG TABLET PO SCH (09:29)
[2016-07-27] MEDS: amLODIPine BESYLATE 5 MG TABLET PO SCH (09:29)
[2016-07-27] MEDS: TIOTROPIUM BROMIDE 5 CAP INHALER IH SCH (09:30)
[2016-07-27] MEDS: ALBUTEROL SULFATE 2.5 MG/3 ML VIAL.NEB IH SCH ×2 (09:32→13:48)
[2016-07-27] MEDS: NICOTINE 21 MG PATC TD SCH (10:32)
[2016-07-27 14:18] VITALS: BP 143/74
--- NOTE | 2016-08-02 18:02 | DS ---
(1) Autonomic neuropathy Problem: Acute (2) Diarrhea Problem: Acute (3) HTN (hypertension) Problem: Acute (4) Intractable neuropathic pain of lower extremity Problem: Chronic Qualifiers: (5) Stage II pressure sore Problem: Chronic (6) Discharge planning issues Problem: Acute (7) Frequent falls Problem: Acute (8) Low back pain Problem: Acute (9) BMI 50.0-59.9, adult Problem: Chronic (10) COPD (chronic obstructive pulmonary disease) Problem: Chronic (11) Chronic respiratory failure with hypoxia Problem: Chronic (12) Diabetes Problem: Chronic (13) Gait disturbance Problem: Chronic (14) Hyperlipemia Problem: Chronic (15) Hypertension Problem: Chronic (16) Lower extremity neuropathy Problem: Chronic (17) Obesity hypoventilation syndrome Problem: Chronic (18) PTSD (post-traumatic stress disorder) Problem: Chronic (19) Stasis dermatitis of both legs Problem: Chronic (20) Venous (peripheral) insufficiency Problem: Chronic (21) Weakness of both lower limbs Problem: Chronic Description of Stay: Patient remained stable while in the hospital and will be discharged home today.. ..... For details please see the progress note from yesterday. Procedures Performed: none Discharge Disposition: Home self care Disposition: Home self-care Condition: Fair Discharge Activity: Activity as tolerated Discharge Diet: Consistent carbs, Low salt Problem Oriented Discharge Instructions to Patient/Family: Fall Prevention in the Home, [id number] Additional Patient Instructions (free text): Daily home health for wound care, 3 stage two pressure sores, two on posterior buttocks, one posterior left upper thigh, wash, use mepilex, till healed. When healed, then once weekly home health Follow up with Dr. Bishop 08/01/16 10:45am Keep your appointment with Dr. Blake 08/01/16 8:30am Prescriptions (Any new or edited meds): Nystatin [Nystop] 1 appl TP BID #60 gm Complete Home Medications List: Complete Home Medication List: Budesonide/Formoterol Fumarate [Symbicort 160-4.5 Mcg Inhaler] 2 puff IH BID #0 05/13/14 Metoprolol Tartrate [Lopressor] 50 mg PO BID #0 05/13/14 Tiotropium [place] [Spiriva] 1 cap IH DAILY #0 05/13/14 Amitriptyline HCl [Elavil] 10 mg PO QID 07/04/16 Amlodipine Besylate 5 mg PO DAILY 07/04/16 Benazepril HCl [Lotensin] 10 mg PO DAILY 07/04/16 Glipizide/Metformin HCl [Glipizide-Metformin 5-500 mg] 1 each PO BID 07/04/16 Meloxicam [Mobic] 15 mg PO DAILY 07/04/16 Omeprazole 20 mg PO DAILY 07/04/16 Potassium Chloride [Klor-Con M10] 10 meq PO DAILY 07/04/16 clonazePAM [Klonopin] 2 mg PO TID 07/04/16 Albuterol Sulfate [Albuterol Sulfate 2.5 MG/3 ML] 2.5 mg IH TID 07/25/16 Montelukast Sodium [Singulair] 10 mg PO HS 07/25/16 [place] 5-325 2 tab PO Q6H PRN 07/25/16 Oxybutynin Chloride [Ditropan Xl] 10 mg PO DAILY 07/25/16 Nystatin [Nystop] 1 appl TP BID #60 gm 07/26/16 Amb Orders for Discharge: CBC Time Frame: 5 Days, Location: Determined By Patient Comprehensive Metabolic Panel Time Frame: 5 Days, Location: Determined By Patient HGBA1C Time Frame: 5 Days, Location: Determined By Patient Lipid Profile Time Frame: 5 Days, Location: Determined By Patient Microalbumin, Random Urine Time Frame: 5 Days, Location: Determined By Patient T4 Free * Location: Determined By Patient TSH * Location: Determined By Patient
== END 2016-07-27 16:44 | disposition home or self-care (01) ==
LOC: ER 07:24 → MS 15:07
PROVIDERS: ADMIT Allergy & Immunology; ATTEND Allergy & Immunology
DX: G57.93 Unspecified mononeuropathy of bilateral lower limbs (principal); R53.1 Weakness; E11.9 Type 2 diabetes mellitus without complications; J44.9 Chronic obstructive pulmonary disease, unspecified; F17.210 Nicotine dependence, cigarettes, uncomplicated; I10 Essential (primary) hypertension; E78.5 Hyperlipidemia, unspecified
CPT/HCPCS: 36415; 71010; 72170; 73552; 73590; 80053; 81001; 85025; 94640; 96374; 99284; G0378

== ENCOUNTER 2016-07-28 08:13 | Observation (INO) | payer MEDICARE, OTHER ==
--- OUTSIDE RECORDS SUMMARY | 2016-07-28 09:05 | XMS REPORT | Continuity of Care Document ---
:1950 Author Organization [facility] ([facility]) Address [address] [place] [address] Phone [phone] Care Team Providers Name Role Phone Diony Gregory Primary Care Provider [phone] Source Comments This disclosure is being made pursuant to the Care Everywhere program, applicable federal and state laws, and may not contain all informaitonavailable regarding this patient.[facility] ([facility]) Active Allergies [...]
[2016-07-28 09:15] LABS: Hematocrit 49.7 % (42.0-52.0); Hemoglobin 16.1 gm/dL (13.5-18.0); Mean Cell Volume 89.7 fl (78-100); Mean Corpuscular Hemoglobin 29.1 pg (27-31); Mean Corpuscular Hgb Conc 32.4 g/dl (32-36); Mean Platelet Volume 9.2 fl (6.0-9.5); Neutrophil # 7.8 K/mm3 (1.3-6.0); Neutrophil % 78.1 % (42-75.0); Platelet Count 214 K/mm3 (150-450); Red Blood Count 5.54 M/mm3 (4.7-6.0); Red Cell Distribution Width 14.6 % (11.5-14.0)
[2016-07-28 09:26] LABS: Albumin * 3.1 gm/dl (3.4-5.0); Anion Gap 10.3 mmol/L (6.8-13.8); BUN/Creatinine Ratio 17.3 (9.0-21.6); Bilirubin, Total 0.5 mg/dL (0.0-1.1); Ca. Corrected For Albumin 9.3 mg/dL (8.4-10.2); Calcium * 8.9 mg/dL (7.9-10.9); Carbon Dioxide 30.4 mmol/L (24-32.6); Potassium 3.7 mmol/L (3.4-4.6); Total Protein 6.9 gm/dL (6.2-8.2)
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
--- OUTSIDE RECORDS SUMMARY | 2016-07-28 11:10 | XMS REPORT | Continuity of Care Document ---
:1950 Author Organization [facility] ([facility]) Address [address] [place] [address] Phone [phone] Care Team Providers Name Role Phone Diony Gregory Primary Care Provider [phone] Source Comments This disclosure is being made pursuant to the Care Everywhere program, applicable federal and state laws, and may not contain all informaitonavailable regarding this patient.[facility] ([facility]) Active Allergies and Adverse Reactions No Known [...]
[2016-07-28] MEDS: clonazePAM 1 MG TABLET PO SCH ×2 (14:25→21:28)
[2016-07-28] MEDS: metFORMIN HCL 500 MG TABLET PO SCH (17:30)
[2016-07-28] MEDS: AMITRIPTYLINE HCL 10 MG TABLET PO SCH ×2 (17:30→21:34)
[2016-07-28] MEDS: glipiZIDE 5 MG TABLET PO SCH (17:30)
--- NOTE | 2016-07-28 17:58 | HP ---
Chief Complaint - Chief Complaint Date of Service: 07/28/16 Time of Service: 17:49 Chief Complaint: Not doing well (still) History of Present Illness: This a 65 y/o mad who had just signed out ama from from our hospital. He had refused to go to a [place] [facility] care facility, following a fall at home, and inability to get up. He had remained on the floor 6-8 hours. Last night he fell three times, and returns to our hospital today by ambulance. Last time he had right leg pain , which persists, but is improving. - Patient's Past Medical History Patient History - Medical: Anxiety, Chronic Pain, Diabetes Type 2, Depression, Osteoarthritis, Renal Disease Patient History - Cardiac/Respiratory: COPD, Hypertension, Home O2 Use Patient History - Cancer: No Hx of Cancer Patient History - Surgical Procedures: Other Patient History - Other: None - Family History Mother Family History - Medical: History Unknown Family History - Cardiac/Respiratory: History Unknown Family History - Cancer: Chemotherapy Father Family History - Medical: History Unknown Family History - Cardiac/Respiratory: History Unknown Family History - Cancer: History Unknown - Social History Living Situations: home Abuse History: No History of abuse Psych History: Hx of Anxiety, Hx of Depression, Current tx/ever been on anti- depressants or anti-anxiety meds Smoking Status: Current every day smoker Have you smoked in the past 12 months: Yes Do you dip or chew tobacco: No Patient requests Smoking Cessation Consult: No Initiate information on Smoking Cessation: Yes Alcohol Use: none Drug Use: none - Immunizations Immunizations Up to Date: No Hx Pneumococcal Vaccination: No History of Influenza Vaccine: No Review Of Systems (GEN) - Review of Systems Generalized/Overall Review: Present: Weakness, Malaise, Fatigue EENTM: Present: No Symptoms Reported Respiratory: Present: No Symptoms Reported Cardiac: Present: No Symptoms Reported Abdominal: Present: No Symptoms Reported Genitourinary: Present: No Symptoms Reported Musculoskeletal: Present: Back Pain, Muscle Pain Neurological: Present: Anxiety, Depressed, Weakness, Pre-existing Deficit Skin: Present: Other - Press sores on buttocks and thigh Endocrine: Present: No Symptoms Reported Misc: All systems neg except as marked Allergies/Adverse Reactions: Allergies Allergy/AdvReac Type Severity Reaction Status Date / Time No Known Allergies Allergy Verified 07/28/16 12:14 Home Medications: HOME MEDICATIONS Budesonide/Formoterol Fumarate [Symbicort 160-4.5 Mcg Inhaler] 2 puff IH BID #0 05/13/14 [Last Taken Unknown] Metoprolol Tartrate [Lopressor] 50 mg PO BID #0 05/13/14 [Last Taken Unknown] Tiotropium [place] [Spiriva] 1 cap IH DAILY #0 05/13/14 [Last Taken Unknown] Amitriptyline HCl [Elavil] 10 mg PO QID 07/04/16 [Last Taken Unknown] Amlodipine Besylate 5 mg PO DAILY 07/04/16 [Last Taken Unknown] Benazepril HCl [Lotensin] 10 mg PO DAILY 07/04/16 [Last Taken Unknown] Glipizide/Metformin HCl [Glipizide-Metformin 5-500 mg] 1 each PO BID 07/04/16 [ Last Taken Unknown] Meloxicam [Mobic] 15 mg PO DAILY 07/04/16 [Last Taken Unknown] Omeprazole 20 mg PO DAILY 07/04/16 [Last Taken Unknown] Potassium Chloride [Klor-Con M10] 10 meq PO DAILY 07/04/16 [Last Taken Unknown] clonazePAM [Klonopin] 2 mg PO TID 07/04/16 [Last Taken Unknown] Albuterol Sulfate [Albuterol Sulfate 2.5 MG/3 ML] 2.5 mg IH TID 07/25/16 [Last Taken Unknown] Montelukast Sodium [Singulair] 10 mg PO HS 07/25/16 [Last Taken Unknown] [place] 5-325 2 tab PO Q6H PRN 07/25/16 [Last Taken Unknown] Oxybutynin Chloride [Ditropan Xl] 10 mg PO DAILY 07/25/16 [Last Taken Unknown] Nystatin [Nystop] 1 appl TP BID #60 gm 07/26/16 [Last Taken Unknown] Exam - Exam Vital Signs: Vital Signs - Last Taken Selected Entries 07/28/16 13:18 Temperature 37.0 C Temperature Temporal Artery Source Scan Pulse Rate 93 Respiratory 16 Rate Respiratory Normal Depth Respiratory Non-Labored Effort Respiratory Normal Pattern Blood Pressure 138/75 Blood Pressure Supine Position O2 Sat by Pulse 95 Oximetry Oxygen Delivery Room Air Method Constitutional: Present: Alert, Oriented x3, Cooperative, Well developed, No distress, Morbidly obese ENT Exam: Present: normal ENT inspection, hearing grossly normal Eye Exam: bilateral eye: normal inspection, PERRL, EOMI Neck: Present: normal inspection Back Exam: Present: normal inspection Respiratory: Present: normal breath sounds, no respiratory distress Cardiovascular/Chest: Present: regular rate, rhythm, no murmur Abdomen: Present: Normal bowel sounds, soft, nontender, nondistended, no rebound tenderness, no hepatospenomegaly, no masses, obese Extremity: Present: normal inspection, pedal edema Skin Exam: Present: normal color, warm/dry, no cyanosis, other - skin pressure sores remain the same Neurologic: Present: alert, oriented x 3 Appearance: Present: appropriate appearance, neat Eye contact: Present: cooperative, good eye contact, normal speech Thoughts: Present: normal thought pattern Diagnostic Studies: Laboratory Results WBC 10.0 K/mm3 (4.0-10.5) 07/28/16 09:05 RBC 5.54 M/mm3 (4.7-6.0) 07/28/16 09:05 Hgb 16.1 gm/dL (13.5-18.0) 07/28/16 09:05 Hct 49.7 % (42.0-52.0) 07/28/16 09:05 MCV 89.7 fl (78-100) 07/28/16 09:05 MCH 29.1 pg (27-31) 07/28/16 09:05 MCHC 32.4 g/dl (32-36) 07/28/16 09:05 RDW 14.6 % (11.5-14.0) H 07/28/16 09:05 Plt Count 214 K/mm3 (150-450) 07/28/16 09:05 MPV 9.2 fl (6.0-9.5) 07/28/16 09:05 Immature Gran % (Auto) 0.60 % (0.001-0.429) H 07/28/16 09:05 Immature Gran # (Auto) 0.06 K/mm3 (0.000-0.0310) H 07/28/16 09:05 Neutrophils % 78.1 % (42-75.0) H 07/28/16 09:05 Lymphocytes % 13.4 % (20-51) L 07/28/16 09:05 Monocytes % 6.4 % (0.0-9) 07/28/16 09:05 Eosinophils % 1.0 % (0.0-3.0) 07/28/16 09:05 Basophils % 0.5 % (0.0-1.0) 07/28/16 09:05 Nucleated RBC % 0.0 k/mm3 (0-1) 07/28/16 09:05 Neutrophils # 7.8 K/mm3 (1.3-6.0) H 07/28/16 09:05 Lymphocytes # 1.3 k/mm3 (1.5-3.5) L 07/28/16 09:05 Monocytes # 0.6 k/mm3 (0.0-1.0) 07/28/16 09:05 Eosinophils # 0.1 k/mm3 (0.0-0.7) 07/28/16 09:05 Absolute Basophils 0.1 k/mm3 (0.0-0.1) 07/28/16 09:05 Sodium 141 mmol/L (132-142) 07/28/16 09:05 Plasma Sodium 141 mmol/L (130-142) 07/28/16 09:05 Potassium 3.7 mmol/L (3.4-4.6) 07/28/16 09:05 Chloride 104 mmol/L (97-106) 07/28/16 09:05 Carbon Dioxide 30.4 mmol/L (24-32.6) 07/28/16 09:05 Anion Gap 10.3 mmol/L (6.8-13.8) 07/28/16 09:05 BUN 17 mg/dL (6-23) 07/28/16 09:05 Creatinine 0.98 mg/dL (0.4-1.4) 07/28/16 09:05 Est GFR (Non-Af Amer) 82 mL/min (60-130) 07/28/16 09:05 BUN/Creatinine Ratio 17.3 (9.0-21.6) 07/28/16 09:05 Random Glucose 126 mg/dL (70-110) H 07/28/16 09:05 Calcium 8.9 mg/dL (7.9-10.9) 07/28/16 09:05 Calcium Adj for Albumin 9.3 mg/dL (8.4-10.2) 07/28/16 09:05 Total Bilirubin 0.5 mg/dL (0.0-1.1) 07/28/16 09:05 AST 16 U/L (0-48) 07/28/16 09:05 ALT 20 U/L (19-67) 07/28/16 09:05 Alkaline Phosphatase 101 U/L (50-170) 07/28/16 09:05 Total Protein 6.9 gm/dL (6.2-8.2) 07/28/16 09:05 Albumin 3.1 gm/dl (3.4-5.0) L 07/28/16 09:05 Assessment/Plan - Narrative Narrative: Look for placement. Treat pressure sores. PT OT consult. - Assessment/Plan (1) Stage II pressure sore Problem: Resolved (2) HTN (hypertension) Problem: Acute (3) Intractable neuropathic pain of lower extremity Problem: Chronic (4) Discharge planning issues Problem: Acute (5) Frequent falls Problem: Acute (6) Low back pain Problem: Acute (7) COPD (chronic obstructive pulmonary disease) Problem: Chronic (8) Chronic respiratory failure with hypoxia Problem: Chronic (9) Diabetes Problem: Chronic (10) Gait disturbance Problem: Chronic (11) Hyperlipemia Problem: Chronic (12) Hypertension Problem: Chronic (13) Lower extremity neuropathy Problem: Chronic (14) Obesity hypoventilation syndrome Problem: Chronic (15) PTSD (post-traumatic stress disorder) Problem: Chronic (16) Stasis dermatitis of both legs Problem: Chronic (17) Unresolved grief Problem: Chronic (18) Venous (peripheral) insufficiency Problem: Chronic (19) Weakness of both lower limbs Problem: Chronic
[2016-07-28] MEDS: ALBUTEROL SULFATE 2.5 MG/3 ML VIAL.NEB IH SCH (18:05)
[2016-07-28] MEDS: FLUTICASONE/SALMETEROL 14 PUFF DISK.W.DEV IH SCH (21:27)
[2016-07-28] MEDS: NYSTATIN 15 APPL BTL TP SCH (21:27)
[2016-07-28] MEDS: OXYBUTYNIN CHLORIDE 5 MG TABLET PO SCH (21:29)
[2016-07-28] MEDS: METOPROLOL TARTRATE 50 MG TABLET PO SCH (21:29)
[2016-07-28] MEDS: MONTELUKAST SODIUM 10 MG TABLET PO SCH (21:29)
[2016-07-28] MEDS: NICOTINE 21 MG PATC TD SCH (21:36)
[2016-07-28] MEDS ORDERED: NICOTINE 21 MG PATC TD SCH (22:15)
[2016-07-29] MEDS: ALBUTEROL SULFATE 2.5 MG/3 ML VIAL.NEB IH SCH ×4 (05:53→20:04)
[2016-07-29] MEDS: PANTOPRAZOLE SODIUM 20 MG TABLET.DR PO SCH (06:46)
[2016-07-29] MEDS: glipiZIDE 5 MG TABLET PO SCH ×2 (06:46→17:09)
[2016-07-29] MEDS: clonazePAM 1 MG TABLET PO SCH ×3 (06:46→21:55)
[2016-07-29] MEDS: metFORMIN HCL 500 MG TABLET PO SCH ×2 (06:46→17:09)
[2016-07-29] MEDS ORDERED: BENAZEPRIL HCL 10 MG TABLET PO SCH (09:00)
[2016-07-29] MEDS: TIOTROPIUM BROMIDE 5 CAP INHALER IH SCH (09:05)
[2016-07-29] MEDS: METOPROLOL TARTRATE 50 MG TABLET PO SCH ×2 (09:05→21:55)
[2016-07-29] MEDS: MULTIVITAMINS 1 CAP CAPSULE PO SCH (09:05)
[2016-07-29] MEDS: OXYBUTYNIN CHLORIDE 5 MG TABLET PO SCH ×2 (09:05→21:55)
[2016-07-29] MEDS: MELOXICAM 15 MG TABLET PO SCH (09:05)
[2016-07-29] MEDS: FLUTICASONE/SALMETEROL 14 PUFF DISK.W.DEV IH SCH ×2 (09:05→21:53)
[2016-07-29] MEDS: AMITRIPTYLINE HCL 10 MG TABLET PO SCH ×4 (09:05→21:55)
[2016-07-29] MEDS: POTASSIUM CHLORIDE 10 MEQ TABLET.SA PO SCH (09:05)
[2016-07-29] MEDS: amLODIPine BESYLATE 5 MG TABLET PO SCH (09:05)
[2016-07-29] MEDS: NYSTATIN 15 APPL BTL TP SCH ×2 (09:06→21:56)
--- NOTE | 2016-07-29 09:07 | PN ---
Subjective - Date and Time Seen Date: 07/29/16 Time: 09:06 Subjective Narrative: No new problems. Only actual issue is custodial placement. Objective - Review of Systems Generalized/Overall Review: Reports: Weakness, Malaise EENTM: Reports: No Symptoms Reported Respiratory: Reports: Cough Cardiac: Reports: Edema - lower legs Abdominal: Reports: Other - loose stools Genitourinary Symptoms: Reports: No Symptoms Reported Musculoskeletal Complaints: Reports: No Symptoms Reported Neurological: Reports: Weakness Skin: Reports: Other - stasis changes lower legs, pressure sores. Endocrine: Reports: No Symptoms Reported Misc: All systems neg except as marked - Vitals Vitals: Last Vital Signs Selected Entries 07/29/16 07/29/16 06:25 09:05 Temperature 35.9 C L Temperature Temporal Artery Source Scan Pulse Rate 76 76 Pulse Rhythm Regular Pulse Strength Normal Respiratory 17 Rate Respiratory Normal Depth Respiratory Normal Effort Respiratory Normal Pattern Blood Pressure 138/77 138/77 Blood Pressure Sitting Position O2 Sat by Pulse 93 Oximetry Oxygen Delivery Room Air Method - Exam Constitutional: Present: Alert, Oriented x3, Cooperative, Well developed, No distress, Morbidly obese ENT Exam: Present: normal ENT inspection, hearing grossly normal Respiratory: Present: lungs clear, no respiratory distress Cardiovascular/Chest: Present: regular rate, rhythm, edema Abdomen: Present: Normal bowel sounds, soft, nontender, nondistended, no rebound tenderness, no hepatospenomegaly, no masses, obese Extremity: Present: pedal edema Skin Exam: Present: normal color, warm/dry, no cyanosis Neurologic: Present: alert, oriented x 3 Appearance: Present: appropriate appearance, neat, no memory impairment Eye contact: Present: cooperative, good eye contact, normal speech Thoughts: Present: normal thought pattern Assessment/Plan Plan Narrative: Placement - Problems/Diagnosis (1) Stage II pressure sore Problem: Chronic (2) HTN (hypertension) Problem: Acute (3) Intractable neuropathic pain of lower extremity Problem: Chronic Qualifiers: Laterality: unspecified laterality Qualified Code(s): G57.90 - Unspecified mononeuropathy of unspecified lower limb (4) Discharge planning issues Problem: Acute (5) Frequent falls Problem: Acute (6) Low back pain Problem: Acute (7) COPD (chronic obstructive pulmonary disease) Problem: Chronic (8) Chronic respiratory failure with hypoxia Problem: Chronic (9) Diabetes Problem: Chronic (10) Gait disturbance Problem: Chronic (11) Hyperlipemia Problem: Chronic (12) Hypertension Problem: Chronic (13) Lower extremity neuropathy Problem: Chronic (14) Obesity hypoventilation syndrome Problem: Chronic (15) PTSD (post-traumatic stress disorder) Problem: Chronic (16) Stasis dermatitis of both legs Problem: Chronic (17) Unresolved grief Problem: Chronic (18) Venous (peripheral) insufficiency Problem: Chronic (19) Weakness of both lower limbs Problem: Chronic
[2016-07-29] MEDS: HYDROcodone/ACETAMINOPHEN 1 EACH TABLET PO PRN ×2 (11:40→18:40)
[2016-07-29] MEDS: NICOTINE 21 MG PATC TD SCH (21:54)
[2016-07-29] MEDS: MONTELUKAST SODIUM 10 MG TABLET PO SCH (21:56)
[2016-07-30] MEDS: ALBUTEROL SULFATE 2.5 MG/3 ML VIAL.NEB IH SCH ×3 (05:59→18:18)
[2016-07-30] MEDS: metFORMIN HCL 500 MG TABLET PO SCH ×2 (07:00→17:08)
[2016-07-30] MEDS: glipiZIDE 5 MG TABLET PO SCH ×2 (07:00→17:08)
[2016-07-30] MEDS: PANTOPRAZOLE SODIUM 20 MG TABLET.DR PO SCH (07:01)
[2016-07-30] MEDS: clonazePAM 1 MG TABLET PO SCH ×3 (07:03→21:34)
--- NOTE | 2016-07-30 08:30 | PN ---
Subjective - Date and Time Seen Date: 07/30/16 Time: 08:26 Subjective Narrative: No new problems. Only actual issue is penitentiary placement. BP slightly high. Objective - Review of Systems Generalized/Overall Review: Reports: Weakness, Malaise EENTM: Reports: No Symptoms Reported Respiratory: Reports: No Symptoms Reported Cardiac: Reports: No Symptoms Reported Abdominal: Reports: No Symptoms Reported Genitourinary Symptoms: Reports: No Symptoms Reported Musculoskeletal Complaints: Reports: No Symptoms Reported Neurological: Reports: No Symptoms Reported Skin: Reports: No Symptoms Reported Endocrine: Reports: No Symptoms Reported Misc: All systems neg except as marked - Vitals Vitals: Last Vital Signs Selected Entries 07/30/16 06:20 Temperature 36.5 C Temperature Oral Source Pulse Rate 70 Pulse Rhythm Regular Pulse Strength Normal Respiratory 16 Rate Respiratory Normal Depth Respiratory Normal Effort Non-Labored Respiratory Normal Pattern Blood Pressure 160/90 O2 Sat by Pulse 93 Oximetry Oxygen Delivery Room Air Method - Exam Constitutional: Present: Alert, Oriented x3, Cooperative, Well developed, No distress, Morbidly obese ENT Exam: Present: normal ENT inspection, hearing grossly normal Neck: Present: normal inspection Respiratory: Present: normal breath sounds, no respiratory distress Cardiovascular/Chest: Present: regular rate, rhythm, no murmur Abdomen: Present: Normal bowel sounds, soft, nontender, nondistended, no rebound tenderness, no hepatospenomegaly, no masses, obese Extremity: Present: normal range of motion, non-tender, normal inspection, no calf tenderness Skin Exam: Present: normal color, warm/dry, no cyanosis, other - 3 pressure sores Neurologic: Present: alert, oriented x 3, motor weakness Appearance: Present: appropriate appearance, neat Eye contact: Present: cooperative Thoughts: Present: normal thought pattern Assessment/Plan Plan Narrative: Increase bp med slightly. placement. - Problems/Diagnosis (1) Stage II pressure sore Problem: Chronic (2) HTN (hypertension) Problem: Acute (3) Intractable neuropathic pain of lower extremity Problem: Chronic Qualifiers: Laterality: unspecified laterality Qualified Code(s): G57.90 - Unspecified mononeuropathy of unspecified lower limb (4) Discharge planning issues Problem: Acute (5) Frequent falls Problem: Acute (6) Low back pain Problem: Acute (7) COPD (chronic obstructive pulmonary disease) Problem: Chronic (8) Chronic respiratory failure with hypoxia Problem: Chronic (9) Diabetes Problem: Chronic (10) Gait disturbance Problem: Chronic (11) Hyperlipemia Problem: Chronic (12) Hypertension Problem: Chronic (13) Lower extremity neuropathy Problem: Chronic (14) Obesity hypoventilation syndrome Problem: Chronic (15) PTSD (post-traumatic stress disorder) Problem: Chronic (16) Stasis dermatitis of both legs Problem: Chronic (17) Unresolved grief Problem: Chronic (18) Venous (peripheral) insufficiency Problem: Chronic (19) Weakness of both lower limbs Problem: Chronic
[2016-07-30] MEDS: TIOTROPIUM BROMIDE 5 CAP INHALER IH SCH (08:49)
[2016-07-30] MEDS: OXYBUTYNIN CHLORIDE 5 MG TABLET PO SCH ×2 (08:51→21:36)
[2016-07-30] MEDS: BENAZEPRIL HCL 10 MG TABLET PO SCH (08:51)
[2016-07-30] MEDS: MELOXICAM 15 MG TABLET PO SCH (08:51)
[2016-07-30] MEDS: MULTIVITAMINS 1 CAP CAPSULE PO SCH (08:52)
[2016-07-30] MEDS: amLODIPine BESYLATE 5 MG TABLET PO SCH (08:52)
[2016-07-30] MEDS: AMITRIPTYLINE HCL 10 MG TABLET PO SCH ×4 (08:52→21:36)
[2016-07-30] MEDS: NYSTATIN 15 APPL BTL TP SCH ×2 (08:52→21:36)
[2016-07-30] MEDS: METOPROLOL TARTRATE 50 MG TABLET PO SCH ×2 (08:52→21:44)
[2016-07-30] MEDS: POTASSIUM CHLORIDE 10 MEQ TABLET.SA PO SCH (08:52)
[2016-07-30] MEDS: FLUTICASONE/SALMETEROL 14 PUFF DISK.W.DEV IH SCH ×2 (08:54→21:33)
[2016-07-30] MEDS: CHOLESTYRAMINE/ASPARTAME 4 GM PACKET PO SCH ×4 (09:10→21:36)
[2016-07-30] MEDS: POTASSIUM CHLORIDE 20 MEQ in NORMAL SALINE 1,000 ML IV SCH ×2 (13:22→21:42)
[2016-07-30] MEDS: HYDROcodone/ACETAMINOPHEN 1 EACH TABLET PO PRN (13:29)
[2016-07-30] MEDS: MONTELUKAST SODIUM 10 MG TABLET PO SCH (21:34)
[2016-07-30] MEDS: NICOTINE 21 MG PATC TD SCH (21:37)
[2016-07-31] MEDS: clonazePAM 1 MG TABLET PO SCH ×3 (07:02→20:36)
[2016-07-31] MEDS: metFORMIN HCL 500 MG TABLET PO SCH (07:02)
[2016-07-31] MEDS: glipiZIDE 5 MG TABLET PO SCH ×2 (07:03→17:16)
[2016-07-31] MEDS: PANTOPRAZOLE SODIUM 20 MG TABLET.DR PO SCH (07:03)
[2016-07-31] MEDS: ALBUTEROL SULFATE 2.5 MG/3 ML VIAL.NEB IH SCH ×3 (07:20→18:57)
[2016-07-31] MEDS: MULTIVITAMINS 1 CAP CAPSULE PO SCH (08:47)
[2016-07-31] MEDS: AMITRIPTYLINE HCL 10 MG TABLET PO SCH ×4 (08:47→20:26)
[2016-07-31] MEDS: BENAZEPRIL HCL 10 MG TABLET PO SCH (08:48)
[2016-07-31] MEDS: METOPROLOL TARTRATE 50 MG TABLET PO SCH ×2 (08:48→20:27)
[2016-07-31] MEDS: MELOXICAM 15 MG TABLET PO SCH (08:48)
[2016-07-31] MEDS: POTASSIUM CHLORIDE 10 MEQ TABLET.SA PO SCH (08:48)
[2016-07-31] MEDS: OXYBUTYNIN CHLORIDE 5 MG TABLET PO SCH ×2 (08:48→20:26)
[2016-07-31] MEDS: FLUTICASONE/SALMETEROL 14 PUFF DISK.W.DEV IH SCH ×2 (08:48→20:25)
[2016-07-31] MEDS: TIOTROPIUM BROMIDE 5 CAP INHALER IH SCH (08:48)
[2016-07-31] MEDS: amLODIPine BESYLATE 5 MG TABLET PO SCH (08:48)
[2016-07-31] MEDS: CHOLESTYRAMINE/ASPARTAME 4 GM PACKET PO SCH ×6 (08:49→21:04)
[2016-07-31] MEDS: NYSTATIN 15 APPL BTL TP SCH ×2 (08:49→20:37)
[2016-07-31] MEDS: POTASSIUM CHLORIDE 20 MEQ in NORMAL SALINE 1,000 ML IV SCH ×2 (10:02→19:25)
[2016-07-31] MEDS: DIPHENOXYLATE HCL/ATROP SULF 2.5 MG TABLET PO SCH ×4 (10:04→20:36)
[2016-07-31] MEDS ORDERED: DIPHENOXYLATE HCL/ATROP SULF 2.5 MG TABLET PO SCH (13:00)
--- NOTE | 2016-07-31 18:28 | PN ---
Subjective - Date and Time Seen Date: 07/31/16 Time: 18:24 Subjective Narrative: Diarrhea. Placement issues Objective - Review of Systems Generalized/Overall Review: Reports: Malaise EENTM: Reports: No Symptoms Reported Respiratory: Reports: No Symptoms Reported Cardiac: Reports: No Symptoms Reported Abdominal: Reports: Diarrhea Genitourinary Symptoms: Reports: No Symptoms Reported Musculoskeletal Complaints: Reports: No Symptoms Reported Neurological: Reports: No Symptoms Reported Skin: Reports: No Symptoms Reported Endocrine: Reports: No Symptoms Reported Misc: All systems neg except as marked - Vitals Vitals: Last Vital Signs Selected Entries 07/31/16 14:42 Temperature 36.4 C L Temperature Oral Source Pulse Rate 65 Respiratory 20 Rate Blood Pressure 159/79 Blood Pressure Supine Position O2 Sat by Pulse 95 Oximetry Oxygen Delivery Room Air Method - Exam Constitutional: Present: Alert, Oriented x3, Cooperative, Well developed, Morbidly obese ENT Exam: Present: normal ENT inspection, hearing grossly normal Neck: Present: normal inspection Respiratory: Present: normal breath sounds, no respiratory distress Cardiovascular/Chest: Present: regular rate, rhythm, no murmur Abdomen: Present: Normal bowel sounds, soft, nontender, nondistended, no rebound tenderness, no hepatospenomegaly, no masses, obese Extremity: Present: normal inspection, pedal edema Skin Exam: Present: normal color, warm/dry, no cyanosis Neurologic: Present: alert, oriented x 3 Appearance: Present: appropriate appearance, neat Eye contact: Present: cooperative, good eye contact, normal speech Assessment/Plan Plan Narrative: [place]. Psych consult when psych back from illness. DC IV - Problems/Diagnosis (1) Stage II pressure sore Problem: Chronic (2) HTN (hypertension) Problem: Acute (3) Intractable neuropathic pain of lower extremity Problem: Chronic Qualifiers: Laterality: unspecified laterality Qualified Code(s): G57.90 - Unspecified mononeuropathy of unspecified lower limb (4) Discharge planning issues Problem: Acute (5) Frequent falls Problem: Acute (6) Low back pain Problem: Acute (7) COPD (chronic obstructive pulmonary disease) Problem: Chronic (8) Chronic respiratory failure with hypoxia Problem: Chronic (9) Diabetes Problem: Chronic (10) Gait disturbance Problem: Chronic (11) Hyperlipemia Problem: Chronic (12) Hypertension Problem: Chronic (13) Lower extremity neuropathy Problem: Chronic (14) Obesity hypoventilation syndrome Problem: Chronic (15) PTSD (post-traumatic stress disorder) Problem: Chronic (16) Stasis dermatitis of both legs Problem: Chronic (17) Unresolved grief Problem: Chronic (18) Venous (peripheral) insufficiency Problem: Chronic (19) Weakness of both lower limbs Problem: Chronic (20) Diarrhea Problem: Acute
[2016-07-31] MEDS: MONTELUKAST SODIUM 10 MG TABLET PO SCH (20:28)
[2016-07-31] MEDS: NICOTINE 21 MG PATC TD SCH (20:28)
[2016-07-31] MEDS: HYDROcodone/ACETAMINOPHEN 1 EACH TABLET PO PRN (20:43)
[2016-08-01] MEDS: ALBUTEROL SULFATE 2.5 MG/3 ML VIAL.NEB IH SCH ×3 (06:10→20:44)
[2016-08-01] MEDS: glipiZIDE 5 MG TABLET PO SCH ×2 (07:45→17:43)
[2016-08-01] MEDS: clonazePAM 1 MG TABLET PO SCH ×3 (07:45→20:38)
[2016-08-01] MEDS: HYDROcodone/ACETAMINOPHEN 1 EACH TABLET PO PRN ×2 (07:45→18:37)
[2016-08-01] MEDS: PANTOPRAZOLE SODIUM 20 MG TABLET.DR PO SCH (07:45)
[2016-08-01] MEDS: TIOTROPIUM BROMIDE 5 CAP INHALER IH SCH (10:06)
[2016-08-01] MEDS: FLUTICASONE/SALMETEROL 14 PUFF DISK.W.DEV IH SCH ×2 (10:07→20:38)
[2016-08-01] MEDS: METOPROLOL TARTRATE 50 MG TABLET PO SCH ×2 (10:08→20:52)
[2016-08-01] MEDS: BENAZEPRIL HCL 10 MG TABLET PO SCH (10:08)
[2016-08-01] MEDS: AMITRIPTYLINE HCL 10 MG TABLET PO SCH ×4 (10:09→20:40)
[2016-08-01] MEDS: MELOXICAM 15 MG TABLET PO SCH (10:09)
[2016-08-01] MEDS: OXYBUTYNIN CHLORIDE 5 MG TABLET PO SCH ×2 (10:09→20:41)
[2016-08-01] MEDS: POTASSIUM CHLORIDE 10 MEQ TABLET.SA PO SCH (10:09)
[2016-08-01] MEDS: MULTIVITAMINS 1 CAP CAPSULE PO SCH (10:09)
[2016-08-01] MEDS: amLODIPine BESYLATE 5 MG TABLET PO SCH (10:09)
[2016-08-01] MEDS: NYSTATIN 15 APPL BTL TP SCH ×2 (10:10→20:52)
[2016-08-01] MEDS: DIPHENOXYLATE HCL/ATROP SULF 2.5 MG TABLET PO SCH ×4 (10:15→20:50)
--- NOTE | 2016-08-01 12:36 | PN ---
Subjective - Date and Time Seen Date: 08/01/16 Time: 08:10 Subjective Narrative: No diarrhea since last night. Wants to smoke. Placement issues. Right leg pain. Wants to go outside. Objective - Review of Systems Generalized/Overall Review: Reports: Malaise EENTM: Reports: No Symptoms Reported Respiratory: Reports: Cough Cardiac: Reports: No Symptoms Reported Genitourinary Symptoms: Reports: No Symptoms Reported Musculoskeletal Complaints: Reports: Back Pain, Other - leg pain Neurological: Reports: No Symptoms Reported Skin: Reports: Other - pressure sores Endocrine: Reports: No Symptoms Reported Misc: All systems neg except as marked - Vitals Vitals: Last Vital Signs Selected Entries 08/01/16 08/01/16 02:00 06:20 Temperature 36.3 C L Temperature Oral Source Pulse Rate 70 65 Respiratory 19 20 Rate Respiratory Normal Depth Blood Pressure 166/75 Blood Pressure Supine Position O2 Sat by Pulse 94 Oximetry Oxygen Delivery Room Air Room Air Method - Exam Constitutional: Present: Alert, Oriented x3, Cooperative, Well developed, No distress, Morbidly obese ENT Exam: Present: normal ENT inspection Neck: Present: normal inspection Cardiovascular/Chest: Present: regular rate, rhythm, no murmur Abdomen: Present: Normal bowel sounds, soft, nontender, nondistended, no rebound tenderness, no hepatospenomegaly, no masses, obese Extremity: Present: pedal edema Skin Exam: Present: normal color, warm/dry, no cyanosis Neurologic: Present: alert, oriented x 3 Appearance: Present: appropriate appearance, neat Eye contact: Present: cooperative, good eye contact, normal speech Assessment/Plan Plan Narrative: BP slightly on high side. Work on placement. can go outside. increase norvasc. - Problems/Diagnosis (1) Stage II pressure sore Problem: Chronic (2) HTN (hypertension) Problem: Acute (3) Intractable neuropathic pain of lower extremity Problem: Chronic Qualifiers: Laterality: unspecified laterality Qualified Code(s): G57.90 - Unspecified mononeuropathy of unspecified lower limb (4) Discharge planning issues Problem: Acute (5) Frequent falls Problem: Acute (6) Low back pain Problem: Acute (7) COPD (chronic obstructive pulmonary disease) Problem: Chronic (8) Chronic respiratory failure with hypoxia Problem: Chronic (9) Diabetes Problem: Chronic (10) Gait disturbance Problem: Chronic (11) Hyperlipemia Problem: Chronic (12) Hypertension Problem: Chronic (13) Lower extremity neuropathy Problem: Chronic (14) Obesity hypoventilation syndrome Problem: Chronic (15) PTSD (post-traumatic stress disorder) Problem: Chronic (16) Stasis dermatitis of both legs Problem: Chronic (17) Unresolved grief Problem: Chronic (18) Venous (peripheral) insufficiency Problem: Chronic (19) Weakness of both lower limbs Problem: Chronic (20) Diarrhea Problem: Acute
[2016-08-01] MEDS: NICOTINE 21 MG PATC TD SCH (20:50)
[2016-08-01] MEDS: MONTELUKAST SODIUM 10 MG TABLET PO SCH (20:53)
[2016-08-02] MEDS: HYDROcodone/ACETAMINOPHEN 1 EACH TABLET PO PRN ×2 (02:05→10:19)
[2016-08-02] MEDS: ALBUTEROL SULFATE 2.5 MG/3 ML VIAL.NEB IH SCH ×3 (06:13→18:08)
[2016-08-02] MEDS: glipiZIDE 5 MG TABLET PO SCH ×2 (06:33→16:29)
[2016-08-02] MEDS: clonazePAM 1 MG TABLET PO SCH ×3 (06:33→21:50)
[2016-08-02] MEDS: PANTOPRAZOLE SODIUM 20 MG TABLET.DR PO SCH (06:33)
[2016-08-02] MEDS: amLODIPine BESYLATE 10 MG TABLET PO SCH (10:20)
[2016-08-02] MEDS: AMITRIPTYLINE HCL 10 MG TABLET PO SCH ×4 (10:20→21:51)
[2016-08-02] MEDS: OXYBUTYNIN CHLORIDE 5 MG TABLET PO SCH ×2 (10:20→21:52)
[2016-08-02] MEDS: MULTIVITAMINS 1 CAP CAPSULE PO SCH (10:20)
[2016-08-02] MEDS: MELOXICAM 15 MG TABLET PO SCH (10:20)
[2016-08-02] MEDS: POTASSIUM CHLORIDE 10 MEQ TABLET.SA PO SCH (10:21)
[2016-08-02] MEDS: FLUTICASONE/SALMETEROL 14 PUFF DISK.W.DEV IH SCH ×2 (10:21→21:52)
[2016-08-02] MEDS: METOPROLOL TARTRATE 50 MG TABLET PO SCH ×2 (10:21→21:50)
[2016-08-02] MEDS: NYSTATIN 15 APPL BTL TP SCH ×2 (10:21→22:04)
[2016-08-02] MEDS: BENAZEPRIL HCL 10 MG TABLET PO SCH (10:21)
[2016-08-02] MEDS: TIOTROPIUM BROMIDE 5 CAP INHALER IH SCH (10:22)
[2016-08-02] MEDS: DIPHENOXYLATE HCL/ATROP SULF 2.5 MG TABLET PO SCH ×4 (10:32→21:57)
--- NOTE | 2016-08-02 17:37 | PN ---
Subjective - Date and Time Seen Date: 08/02/16 Time: 07:15 Subjective Narrative: Nurse reports stool like pudding last night. Still waiting on placement last night Objective - Review of Systems Generalized/Overall Review: Reports: Malaise EENTM: Reports: No Symptoms Reported Respiratory: Reports: No Symptoms Reported Cardiac: Reports: No Symptoms Reported Abdominal: Reports: Other - loose stool Genitourinary Symptoms: Reports: No Symptoms Reported Musculoskeletal Complaints: Reports: Joint Pain, Back Pain Neurological: Reports: No Symptoms Reported Skin: Reports: No Symptoms Reported Endocrine: Reports: No Symptoms Reported Misc: All systems neg except as marked - Vitals Vitals: Last Vital Signs Selected Entries 08/02/16 08/02/16 08/02/16 05:00 06:13 06:23 Temperature 36.8 C Temperature Temporal Artery Source Scan Pulse Rate 94 72 76 Respiratory 20 20 20 Rate Respiratory Deep Depth Respiratory Normal Pattern Blood Pressure 150/73 Blood Pressure Supine Position O2 Sat by Pulse 94 94 Oximetry Oxygen Delivery Room Air Room Air Room Air Method Oxygen Flow 0 Rate - Exam Constitutional: Present: Alert, Oriented x3, Cooperative, Well developed, No distress, Morbidly obese ENT Exam: Present: normal ENT inspection, hearing grossly normal Neck: Present: normal inspection Respiratory: Present: lungs clear, no respiratory distress Cardiovascular/Chest: Present: regular rate, rhythm, no murmur Abdomen: Present: Normal bowel sounds, soft, nontender, no rebound tenderness, no hepatospenomegaly, no masses, obese Extremity: Present: pedal edema Skin Exam: Present: normal color, warm/dry, no cyanosis Neurologic: Present: alert, oriented x 3 Appearance: Present: appropriate appearance, neat Eye contact: Present: cooperative, good eye contact Assessment/Plan Plan Narrative: Increase lomotil. Psych consult. Placement. - Problems/Diagnosis (1) Stage II pressure sore Problem: Chronic (2) HTN (hypertension) Problem: Acute (3) Intractable neuropathic pain of lower extremity Problem: Chronic Qualifiers: Laterality: unspecified laterality Qualified Code(s): G57.90 - Unspecified mononeuropathy of unspecified lower limb (4) Discharge planning issues Problem: Acute (5) Frequent falls Problem: Acute (6) Low back pain Problem: Acute (7) COPD (chronic obstructive pulmonary disease) Problem: Chronic (8) Chronic respiratory failure with hypoxia Problem: Chronic (9) Diabetes Problem: Chronic (10) Gait disturbance Problem: Chronic (11) Hyperlipemia Problem: Chronic (12) Hypertension Problem: Chronic (13) Lower extremity neuropathy Problem: Chronic (14) Obesity hypoventilation syndrome Problem: Chronic (15) PTSD (post-traumatic stress disorder) Problem: Chronic (16) Stasis dermatitis of both legs Problem: Chronic (17) Unresolved grief Problem: Chronic (18) Venous (peripheral) insufficiency Problem: Chronic (19) Weakness of both lower limbs Problem: Chronic (20) Diarrhea Problem: Acute (21) Autonomic neuropathy Problem: Acute
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
[2016-08-02] MEDS: MONTELUKAST SODIUM 10 MG TABLET PO SCH (21:51)
[2016-08-02] MEDS: NICOTINE 21 MG PATC TD SCH (21:59)
[2016-08-03] MEDS: PANTOPRAZOLE SODIUM 20 MG TABLET.DR PO SCH (06:24)
[2016-08-03] MEDS: clonazePAM 1 MG TABLET PO SCH ×3 (06:24→20:14)
[2016-08-03] MEDS: glipiZIDE 5 MG TABLET PO SCH ×2 (06:24→17:28)
[2016-08-03] MEDS: METOPROLOL TARTRATE 50 MG TABLET PO SCH ×2 (08:42→20:15)
[2016-08-03] MEDS: POTASSIUM CHLORIDE 10 MEQ TABLET.SA PO SCH (08:42)
[2016-08-03] MEDS: amLODIPine BESYLATE 10 MG TABLET PO SCH (08:42)
[2016-08-03] MEDS: MULTIVITAMINS 1 CAP CAPSULE PO SCH (08:43)
[2016-08-03] MEDS: NYSTATIN 15 APPL BTL TP SCH ×2 (08:43→20:18)
[2016-08-03] MEDS: TIOTROPIUM BROMIDE 5 CAP INHALER IH SCH (08:43)
[2016-08-03] MEDS: AMITRIPTYLINE HCL 10 MG TABLET PO SCH ×4 (08:43→20:14)
[2016-08-03] MEDS: OXYBUTYNIN CHLORIDE 5 MG TABLET PO SCH ×2 (08:43→20:16)
[2016-08-03] MEDS: FLUTICASONE/SALMETEROL 14 PUFF DISK.W.DEV IH SCH ×2 (08:43→20:13)
[2016-08-03] MEDS: MELOXICAM 15 MG TABLET PO SCH (08:43)
[2016-08-03] MEDS: BENAZEPRIL HCL 10 MG TABLET PO SCH (08:43)
[2016-08-03] MEDS: LOPERAMIDE HCL 2 MG CAPSULE PO SCH ×4 (08:44→20:14)
[2016-08-03] MEDS: DIPHENOXYLATE HCL/ATROP SULF 2.5 MG TABLET PO SCH ×4 (08:46→20:24)
[2016-08-03] MEDS: ALBUTEROL SULFATE 2.5 MG/3 ML VIAL.NEB IH SCH ×3 (08:54→20:12)
--- NOTE | 2016-08-03 12:53 | PN ---
Subjective - Date and Time Seen Date: 08/03/16 Time: 07:45 Subjective Narrative: Some soft solid some diarrhea stools. Still waiting on placement. Objective - Review of Systems Generalized/Overall Review: Reports: Malaise EENTM: Reports: No Symptoms Reported Respiratory: Reports: No Symptoms Reported Cardiac: Reports: No Symptoms Reported Abdominal: Reports: Other Genitourinary Symptoms: Reports: No Symptoms Reported Musculoskeletal Complaints: Reports: Other Neurological: Reports: No Symptoms Reported Skin: Reports: No Symptoms Reported Endocrine: Reports: No Symptoms Reported Misc: All systems neg except as marked - Vitals Vitals: Last Vital Signs Selected Entries 08/03/16 04:30 Temperature 36.7 C Temperature Temporal Artery Source Scan Pulse Rate 80 Respiratory 20 Rate Respiratory Normal Depth Respiratory Normal Effort Respiratory Normal Pattern Blood Pressure 158/87 Blood Pressure Supine Position O2 Sat by Pulse 93 Oximetry Oxygen Delivery Room Air Method Oxygen Flow 0 Rate - Exam Constitutional: Present: Alert, Oriented x3, Cooperative, Well developed, No distress, Morbidly obese ENT Exam: Present: normal ENT inspection, hearing grossly normal Neck: Present: normal inspection Respiratory: Present: normal breath sounds, no respiratory distress Cardiovascular/Chest: Present: normal peripheral pulses, regular rate, rhythm, no chest tenderness Abdomen: Present: Normal bowel sounds, soft, nontender, nondistended, no rebound tenderness, no hepatospenomegaly, no masses, obese Extremity: Present: pedal edema Skin Exam: Present: normal color, warm/dry, no cyanosis Neurologic: Present: other Appearance: Present: appropriate appearance, neat Eye contact: Present: cooperative, good eye contact, normal speech Assessment/Plan Plan Narrative: Add immodium. Work on placement. - Problems/Diagnosis (1) Stage II pressure sore Problem: Chronic (2) HTN (hypertension) Problem: Acute (3) Intractable neuropathic pain of lower extremity Problem: Chronic Qualifiers: Laterality: unspecified laterality Qualified Code(s): G57.90 - Unspecified mononeuropathy of unspecified lower limb (4) Discharge planning issues Problem: Acute (5) Frequent falls Problem: Acute (6) Low back pain Problem: Acute (7) COPD (chronic obstructive pulmonary disease) Problem: Chronic (8) Chronic respiratory failure with hypoxia Problem: Chronic (9) Diabetes Problem: Chronic (10) Gait disturbance Problem: Chronic (11) Hyperlipemia Problem: Chronic (12) Hypertension Problem: Chronic (13) Lower extremity neuropathy Problem: Chronic (14) Obesity hypoventilation syndrome Problem: Chronic (15) PTSD (post-traumatic stress disorder) Problem: Chronic (16) Stasis dermatitis of both legs Problem: Chronic (17) Unresolved grief Problem: Chronic (18) Venous (peripheral) insufficiency Problem: Chronic (19) Weakness of both lower limbs Problem: Chronic (20) Diarrhea Problem: Acute (21) Autonomic neuropathy Problem: Acute
[2016-08-03] MEDS: HYDROcodone/ACETAMINOPHEN 1 EACH TABLET PO PRN (17:28)
[2016-08-03] MEDS: MONTELUKAST SODIUM 10 MG TABLET PO SCH (20:15)
[2016-08-03] MEDS: NICOTINE 21 MG PATC TD SCH (20:17)
[2016-08-04] MEDS: HYDROcodone/ACETAMINOPHEN 1 EACH TABLET PO PRN ×3 (00:22→18:23)
[2016-08-04] MEDS: ALBUTEROL SULFATE 2.5 MG/3 ML VIAL.NEB IH SCH ×3 (06:15→18:16)
[2016-08-04] MEDS: PANTOPRAZOLE SODIUM 20 MG TABLET.DR PO SCH (06:45)
[2016-08-04] MEDS: glipiZIDE 5 MG TABLET PO SCH ×2 (06:45→16:28)
[2016-08-04] MEDS: clonazePAM 1 MG TABLET PO SCH ×3 (06:48→20:06)
[2016-08-04] MEDS: FLUTICASONE/SALMETEROL 14 PUFF DISK.W.DEV IH SCH ×2 (08:43→20:06)
[2016-08-04] MEDS: TIOTROPIUM BROMIDE 5 CAP INHALER IH SCH (08:44)
[2016-08-04] MEDS: METOPROLOL TARTRATE 50 MG TABLET PO SCH ×2 (08:45→20:03)
[2016-08-04] MEDS: MULTIVITAMINS 1 CAP CAPSULE PO SCH (08:45)
[2016-08-04] MEDS: LOPERAMIDE HCL 2 MG CAPSULE PO SCH ×4 (08:45→20:02)
[2016-08-04] MEDS: BENAZEPRIL HCL 10 MG TABLET PO SCH (08:45)
[2016-08-04] MEDS: NYSTATIN 15 APPL BTL TP SCH ×2 (08:46→20:03)
[2016-08-04] MEDS: POTASSIUM CHLORIDE 10 MEQ TABLET.SA PO SCH (08:46)
[2016-08-04] MEDS: MELOXICAM 15 MG TABLET PO SCH (08:46)
[2016-08-04] MEDS: OXYBUTYNIN CHLORIDE 5 MG TABLET PO SCH ×2 (08:46→20:03)
[2016-08-04] MEDS: AMITRIPTYLINE HCL 10 MG TABLET PO SCH ×4 (08:46→20:02)
[2016-08-04] MEDS: amLODIPine BESYLATE 10 MG TABLET PO SCH (08:46)
[2016-08-04] MEDS ORDERED: RIFAXIMIN 200 MG TABLET PO SCH (09:00)
[2016-08-04] MEDS: DIPHENOXYLATE HCL/ATROP SULF 2.5 MG TABLET PO SCH ×4 (09:06→20:06)
[2016-08-04] MEDS: CEPHALEXIN MONOHYDRATE 500 MG CAPSULE PO SCH ×3 (09:12→16:27)
[2016-08-04] MEDS: AMOX TR/POTASSIUM CLAVULANATE 500 MG TABLET PO SCH ×3 (09:12→16:27)
[2016-08-04] MEDS: NICOTINE 21 MG PATC TD SCH (20:03)
[2016-08-04] MEDS: MONTELUKAST SODIUM 10 MG TABLET PO SCH (20:03)
[2016-08-05] MEDS: ALBUTEROL SULFATE 2.5 MG/3 ML VIAL.NEB IH SCH ×3 (06:08→18:05)
[2016-08-05] MEDS: PANTOPRAZOLE SODIUM 20 MG TABLET.DR PO SCH (06:47)
[2016-08-05] MEDS: clonazePAM 1 MG TABLET PO SCH ×4 (06:47→21:39)
[2016-08-05] MEDS: glipiZIDE 5 MG TABLET PO SCH ×2 (06:47→16:51)
--- NOTE | 2016-08-05 08:28 | PN ---
Subjective - Date and Time Seen Date: 08/05/16 Time: 07:30 Subjective Narrative: Drowsy. Diarrhea inspite of all treatment efforts so far. We stopped metformin. We maximized immodium and lomotil. we are empirically treating for small bowel bacterial overgrowth. we have not done colonoscopy. Please see nurses notes for details surrounding placement problems. Objective - Review of Systems Generalized/Overall Review: Reports: Malaise - very drowsy EENTM: Reports: No Symptoms Reported Respiratory: Reports: No Symptoms Reported Cardiac: Reports: No Symptoms Reported Abdominal: Reports: Other - HPI Genitourinary Symptoms: Reports: No Symptoms Reported Musculoskeletal Complaints: Reports: Back Pain, Other Neurological: Reports: Emotional Problems Skin: Reports: No Symptoms Reported Endocrine: Reports: No Symptoms Reported Misc: All systems neg except as marked - Vitals Vitals: Last Vital Signs Selected Entries 08/05/16 08/05/16 03:16 06:18 Temperature 36.5 C Temperature Oral Source Pulse Rate 72 64 Respiratory 18 20 Rate Blood Pressure 125/60 Blood Pressure Supine Position O2 Sat by Pulse 91 Oximetry Oxygen Delivery Room Air Room Air Method - Exam Constitutional: Present: Well developed, Somnolent, Morbidly obese ENT Exam: Present: normal ENT inspection, hearing grossly normal Neck: Present: normal inspection Respiratory: Present: lungs clear, no respiratory distress Cardiovascular/Chest: Present: regular rate, rhythm, no murmur Abdomen: Present: Normal bowel sounds, soft, nontender, nondistended, no rebound tenderness, no hepatospenomegaly, obese Extremity: Present: lower extremity edema Skin Exam: Present: no cyanosis, cool/dry Neurologic: Present: oriented x 3 Appearance: Present: appropriate appearance, neat Assessment/Plan Plan Narrative: Back off immodium and lomotil. add fibercon. empirical trial of lactose and fructose free diet. when he is discharged, needs gi consult, including colonoscopy with biopsy. continue placement efforts. he is not cooperating with placement efforts. - Problems/Diagnosis (1) Stage II pressure sore Problem: Chronic (2) HTN (hypertension) Problem: Acute (3) Intractable neuropathic pain of lower extremity Problem: Chronic Qualifiers: Laterality: unspecified laterality Qualified Code(s): G57.90 - Unspecified mononeuropathy of unspecified lower limb (4) Discharge planning issues Problem: Acute (5) Frequent falls Problem: Acute (6) Low back pain Problem: Acute (7) COPD (chronic obstructive pulmonary disease) Problem: Chronic (8) Chronic respiratory failure with hypoxia Problem: Chronic (9) Diabetes Problem: Chronic (10) Gait disturbance Problem: Chronic (11) Hyperlipemia Problem: Chronic (12) Hypertension Problem: Chronic (13) Lower extremity neuropathy Problem: Chronic (14) Obesity hypoventilation syndrome Problem: Chronic (15) PTSD (post-traumatic stress disorder) Problem: Chronic (16) Stasis dermatitis of both legs Problem: Chronic (17) Unresolved grief Problem: Chronic (18) Venous (peripheral) insufficiency Problem: Chronic (19) Weakness of both lower limbs Problem: Chronic (20) Diarrhea Problem: Acute (21) Autonomic neuropathy Problem: Acute
[2016-08-05] MEDS: CEPHALEXIN MONOHYDRATE 500 MG CAPSULE PO SCH ×3 (08:45→16:51)
[2016-08-05] MEDS: AMOX TR/POTASSIUM CLAVULANATE 500 MG TABLET PO SCH ×3 (08:45→16:51)
[2016-08-05] MEDS: LOPERAMIDE HCL 2 MG CAPSULE PO SCH ×5 (08:45→21:39)
[2016-08-05] MEDS: TIOTROPIUM BROMIDE 5 CAP INHALER IH SCH (08:46)
[2016-08-05] MEDS: NYSTATIN 15 APPL BTL TP SCH ×3 (08:46→23:17)
[2016-08-05] MEDS: HYDROcodone/ACETAMINOPHEN 1 EACH TABLET PO PRN ×2 (08:49→16:56)
[2016-08-05] MEDS: amLODIPine BESYLATE 10 MG TABLET PO SCH (08:51)
[2016-08-05] MEDS: BENAZEPRIL HCL 10 MG TABLET PO SCH (08:53)
[2016-08-05] MEDS: OXYBUTYNIN CHLORIDE 5 MG TABLET PO SCH ×2 (08:55→21:23)
[2016-08-05] MEDS: POTASSIUM CHLORIDE 10 MEQ TABLET.SA PO SCH (08:55)
[2016-08-05] MEDS: FLUTICASONE/SALMETEROL 14 PUFF DISK.W.DEV IH SCH ×2 (08:55→21:22)
[2016-08-05] MEDS: MULTIVITAMINS 1 CAP CAPSULE PO SCH (08:55)
[2016-08-05] MEDS: AMITRIPTYLINE HCL 10 MG TABLET PO SCH ×4 (08:55→21:24)
[2016-08-05] MEDS: METOPROLOL TARTRATE 50 MG TABLET PO SCH ×2 (08:55→21:31)
[2016-08-05] MEDS: MELOXICAM 15 MG TABLET PO SCH (08:56)
[2016-08-05] MEDS: CALCIUM POLYCARBOPHIL 625 MG TABLET PO SCH ×4 (08:56→21:23)
[2016-08-05] MEDS: DIPHENOXYLATE HCL/ATROP SULF 2.5 MG TABLET PO SCH ×4 (08:59→21:39)
--- NOTE | 2016-08-05 09:20 | PN ---
Subjective - Date and Time Seen Date: 08/04/16 Time: 07:00 Subjective Narrative: Still with diarrhea. Still a placement problem. Objective - Review of Systems Generalized/Overall Review: Reports: Malaise EENTM: Reports: No Symptoms Reported Respiratory: Reports: No Symptoms Reported Cardiac: Reports: No Symptoms Reported Abdominal: Reports: Diarrhea Genitourinary Symptoms: Reports: No Symptoms Reported Musculoskeletal Complaints: Reports: Back Pain, Other - leg pain Neurological: Reports: No Symptoms Reported Skin: Reports: Other - pressure sore Endocrine: Reports: No Symptoms Reported Misc: All systems neg except as marked - Vitals Vitals: Last Vital Signs Selected Entries 08/04/16 07:00 Temperature 36.7 C Temperature Temporal Artery Source Scan Pulse Rate 93 Respiratory 18 Rate Respiratory Normal Depth Blood Pressure 129/61 Blood Pressure Supine Position O2 Sat by Pulse 96 Oximetry Oxygen Delivery Room Air Method - Exam Constitutional: Present: Alert, Oriented x3, Cooperative, Well developed, Morbidly obese ENT Exam: Present: normal ENT inspection, hearing grossly normal Neck: Present: normal inspection Respiratory: Present: normal breath sounds, no respiratory distress Cardiovascular/Chest: Present: regular rate, rhythm, no murmur Abdomen: Present: Normal bowel sounds, soft, nontender, nondistended, no rebound tenderness, no hepatospenomegaly, obese Extremity: Present: lower extremity edema Skin Exam: Present: no cyanosis, cool/dry Neurologic: Present: alert, oriented x 3 Appearance: Present: appropriate appearance, neat Eye contact: Present: cooperative, normal speech Assessment/Plan Plan Narrative: we are gradually increasing immodium and lomotil to see if we can 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 we have already stopped his metformin. he refuses to take questran for the diarrhea. we have considered diabetic autonomic neuropathy as a possible cause for the diarrhea, but we understand this has been an assumption on our part. we explained to him we we will assume he MIGHT have small bowel bacterial overgrowth syndrome, and treat empirically, since we can't evaluate for that with him in the hospital. He agrees, so we will start antibiotics. Other possibilities would be sugar intolerances, or colitis, the latter of which would require colonoscopy with biopsy. moreover, placement continues to be a very difficult problem. - Problems/Diagnosis (1) Stage II pressure sore Problem: Chronic (2) HTN (hypertension) Problem: Acute (3) Intractable neuropathic pain of lower extremity Problem: Chronic Qualifiers: Laterality: unspecified laterality Qualified Code(s): G57.90 - Unspecified mononeuropathy of unspecified lower limb (4) Discharge planning issues Problem: Acute (5) Frequent falls Problem: Acute (6) Low back pain Problem: Acute (7) COPD (chronic obstructive pulmonary disease) Problem: Chronic (8) Chronic respiratory failure with hypoxia Problem: Chronic (9) Diabetes Problem: Chronic (10) Gait disturbance Problem: Chronic (11) Hyperlipemia Problem: Chronic (12) Hypertension Problem: Chronic (13) Lower extremity neuropathy Problem: Chronic (14) Obesity hypoventilation syndrome Problem: Chronic (15) PTSD (post-traumatic stress disorder) Problem: Chronic (16) Stasis dermatitis of both legs Problem: Chronic (17) Unresolved grief Problem: Chronic (18) Venous (peripheral) insufficiency Problem: Chronic (19) Weakness of both lower limbs Problem: Chronic (20) Diarrhea Problem: Acute (21) Autonomic neuropathy Problem: Acute
[2016-08-05] MEDS: NICOTINE 21 MG PATC TD SCH (21:26)
[2016-08-05] MEDS: MONTELUKAST SODIUM 10 MG TABLET PO SCH (21:33)
[2016-08-06] MEDS: ALBUTEROL SULFATE 2.5 MG/3 ML VIAL.NEB IH SCH ×3 (06:12→18:05)
[2016-08-06] MEDS: clonazePAM 1 MG TABLET PO SCH ×2 (06:51→21:30)
[2016-08-06] MEDS: HYDROcodone/ACETAMINOPHEN 1 EACH TABLET PO PRN ×2 (06:51→14:40)
[2016-08-06] MEDS: PANTOPRAZOLE SODIUM 20 MG TABLET.DR PO SCH (06:51)
[2016-08-06] MEDS: glipiZIDE 5 MG TABLET PO SCH ×2 (06:52→17:38)
[2016-08-06] MEDS: AMOX TR/POTASSIUM CLAVULANATE 500 MG TABLET PO SCH ×3 (09:41→17:38)
[2016-08-06] MEDS: CEPHALEXIN MONOHYDRATE 500 MG CAPSULE PO SCH ×3 (09:42→17:42)
[2016-08-06] MEDS: POTASSIUM CHLORIDE 10 MEQ TABLET.SA PO SCH (09:42)
[2016-08-06] MEDS: AMITRIPTYLINE HCL 10 MG TABLET PO SCH ×2 (09:42→15:00)
[2016-08-06] MEDS: amLODIPine BESYLATE 10 MG TABLET PO SCH (09:43)
[2016-08-06] MEDS: CALCIUM POLYCARBOPHIL 625 MG TABLET PO SCH ×4 (09:43→21:09)
[2016-08-06] MEDS: MULTIVITAMINS 1 CAP CAPSULE PO SCH (09:43)
[2016-08-06] MEDS: MELOXICAM 15 MG TABLET PO SCH (09:44)
[2016-08-06] MEDS: TIOTROPIUM BROMIDE 5 CAP INHALER IH SCH (09:44)
[2016-08-06] MEDS: OXYBUTYNIN CHLORIDE 5 MG TABLET PO SCH ×2 (09:44→21:06)
[2016-08-06] MEDS: METOPROLOL TARTRATE 50 MG TABLET PO SCH ×2 (09:45→21:15)
[2016-08-06] MEDS: NYSTATIN 15 APPL BTL TP SCH ×2 (09:45→21:16)
[2016-08-06] MEDS: BENAZEPRIL HCL 10 MG TABLET PO SCH (09:46)
[2016-08-06] MEDS: LOPERAMIDE HCL 2 MG CAPSULE PO SCH ×2 (09:53→15:00)
[2016-08-06] MEDS: FLUTICASONE/SALMETEROL 14 PUFF DISK.W.DEV IH SCH ×2 (11:09→21:05)
[2016-08-06] MEDS: DIPHENOXYLATE HCL/ATROP SULF 2.5 MG TABLET PO SCH ×2 (11:09→15:00)
--- NOTE | 2016-08-06 13:23 | PN ---
Subjective - Date and Time Seen Date: 08/06/16 Time: 13:16 Subjective Narrative: Drowsy. Bowels are better. Objective - Review of Systems Generalized/Overall Review: Reports: Malaise EENTM: Reports: No Symptoms Reported Respiratory: Reports: No Symptoms Reported Cardiac: Reports: No Symptoms Reported Abdominal: Reports: No Symptoms Reported Genitourinary Symptoms: Reports: No Symptoms Reported Musculoskeletal Complaints: Reports: No Symptoms Reported Neurological: Reports: No Symptoms Reported Skin: Reports: No Symptoms Reported Endocrine: Reports: No Symptoms Reported Misc: All systems neg except as marked - Vitals Vitals: Last Vital Signs Selected Entries 08/06/16 08/06/16 06:55 09:46 Temperature 36.6 C Temperature Temporal Artery Source Scan Pulse Rate 71 71 Respiratory 18 Rate Respiratory Normal Depth Blood Pressure 152/79 152/79 Blood Pressure Supine Position O2 Sat by Pulse 95 Oximetry Oxygen Delivery Room Air Method - Exam Constitutional: Present: Cooperative, Well developed, No distress, Somnolent, Morbidly obese ENT Exam: Present: normal ENT inspection, hearing grossly normal Neck: Present: normal inspection Respiratory: Present: lungs clear, no respiratory distress Cardiovascular/Chest: Present: regular rate, rhythm, no murmur Abdomen: Present: Normal bowel sounds, soft, nontender, nondistended, no rebound tenderness, no hepatospenomegaly, no masses, obese Extremity: Present: pedal edema Skin Exam: Present: normal color, warm/dry, no cyanosis Appearance: Present: appropriate appearance Assessment/Plan Plan Narrative: Diarrhea better.........I suspect lactose or fructose intolerance...........could still be small bowel bacterial over growth. Drowsy , back off sedating meds. Continue antibiotics for now. BP still slightly high , increase BP meds. Labs tomorrow. Continue placement efforts. Continue fructose and lactose free diet. - Problems/Diagnosis (1) Stage II pressure sore Problem: Chronic (2) HTN (hypertension) Problem: Acute (3) Intractable neuropathic pain of lower extremity Problem: Chronic Qualifiers: Laterality: unspecified laterality Qualified Code(s): G57.90 - Unspecified mononeuropathy of unspecified lower limb (4) Discharge planning issues Problem: Acute (5) Frequent falls Problem: Acute (6) Low back pain Problem: Acute (7) COPD (chronic obstructive pulmonary disease) Problem: Chronic (8) Chronic respiratory failure with hypoxia Problem: Chronic (9) Diabetes Problem: Chronic (10) Gait disturbance Problem: Chronic (11) Hyperlipemia Problem: Chronic (12) Hypertension Problem: Chronic (13) Lower extremity neuropathy Problem: Chronic (14) Obesity hypoventilation syndrome Problem: Chronic (15) PTSD (post-traumatic stress disorder) Problem: Chronic (16) Stasis dermatitis of both legs Problem: Chronic (17) Unresolved grief Problem: Chronic (18) Venous (peripheral) insufficiency Problem: Chronic (19) Weakness of both lower limbs Problem: Chronic (20) Diarrhea Problem: Acute (21) Autonomic neuropathy Problem: Acute
[2016-08-06] MEDS: NICOTINE 21 MG PATC TD SCH (21:16)
[2016-08-06] MEDS: MONTELUKAST SODIUM 10 MG TABLET PO SCH (21:21)
[2016-08-06] MEDS: ENALAPRIL MALEATE 20 MG TABLET PO SCH (21:22)
[2016-08-07 05:40] LABS: Hematocrit 44.2 % (42.0-52.0); Hemoglobin 14.3 gm/dL (13.5-18.0); Mean Cell Volume 88.8 fl (78-100); Mean Corpuscular Hemoglobin 28.7 pg (27-31); Mean Corpuscular Hgb Conc 32.4 g/dl (32-36); Mean Platelet Volume 9.4 fl (6.0-9.5); Neutrophil # 5.9 K/mm3 (1.3-6.0); Neutrophil % 71.7 % (42-75.0); Platelet Count 250 K/mm3 (150-450); Red Blood Count 4.98 M/mm3 (4.7-6.0); Red Cell Distribution Width 14.4 % (11.5-14.0); White Blood Count 8.2 K/mm3 (4.0-10.5)
[2016-08-07 05:51] LABS: Anion Gap 13.4 mmol/L (6.8-13.8); BUN/Creatinine Ratio 17.6 (9.0-21.6); Calcium * 9.2 mg/dL (7.9-10.9); Carbon Dioxide 27.4 mmol/L (24-32.6); Estimated Creat Clear 103.4; Potassium 3.8 mmol/L (3.4-4.6)
[2016-08-07] MEDS: ALBUTEROL SULFATE 2.5 MG/3 ML VIAL.NEB IH SCH ×3 (06:02→19:55)
[2016-08-07] MEDS: PANTOPRAZOLE SODIUM 20 MG TABLET.DR PO SCH (06:31)
[2016-08-07] MEDS: glipiZIDE 5 MG TABLET PO SCH ×2 (08:39→17:13)
[2016-08-07] MEDS: FLUTICASONE/SALMETEROL 14 PUFF DISK.W.DEV IH SCH ×2 (08:41→20:19)
[2016-08-07] MEDS: TIOTROPIUM BROMIDE 5 CAP INHALER IH SCH (08:42)
[2016-08-07] MEDS: amLODIPine BESYLATE 10 MG TABLET PO SCH (08:42)
[2016-08-07] MEDS: METOPROLOL TARTRATE 50 MG TABLET PO SCH ×2 (08:43→20:22)
[2016-08-07] MEDS: CEPHALEXIN MONOHYDRATE 500 MG CAPSULE PO SCH ×3 (08:44→17:12)
[2016-08-07] MEDS: ENALAPRIL MALEATE 20 MG TABLET PO SCH ×2 (08:44→20:23)
[2016-08-07] MEDS: POTASSIUM CHLORIDE 10 MEQ TABLET.SA PO SCH (08:45)
[2016-08-07] MEDS: MULTIVITAMINS 1 CAP CAPSULE PO SCH (08:45)
[2016-08-07] MEDS: CALCIUM POLYCARBOPHIL 625 MG TABLET PO SCH ×4 (08:45→20:24)
[2016-08-07] MEDS: MELOXICAM 15 MG TABLET PO SCH (08:45)
[2016-08-07] MEDS: OXYBUTYNIN CHLORIDE 5 MG TABLET PO SCH ×2 (08:46→20:20)
[2016-08-07] MEDS: NYSTATIN 15 APPL BTL TP SCH ×2 (08:53→20:24)
[2016-08-07] MEDS: AMOX TR/POTASSIUM CLAVULANATE 500 MG TABLET PO SCH ×3 (08:53→17:12)
[2016-08-07] MEDS ORDERED: ENALAPRIL MALEATE 20 MG TABLET PO SCH (09:00)
[2016-08-07] MEDS: HYDROcodone/ACETAMINOPHEN 1 EACH TABLET PO PRN (16:58)
[2016-08-07] MEDS ORDERED: ACETAMINOPHEN 325 MG TABLET PO PRN (18:30)
[2016-08-07] MEDS ORDERED: HYDROcodone/ACETAMINOPHEN 1 EACH TABLET PO PRN (18:32)
[2016-08-07] MEDS: NICOTINE 21 MG PATC TD SCH (20:20)
[2016-08-07] MEDS: MONTELUKAST SODIUM 10 MG TABLET PO SCH (20:21)
[2016-08-07] MEDS: clonazePAM 1 MG TABLET PO SCH (20:27)
[2016-08-08] MEDS: ALBUTEROL SULFATE 2.5 MG/3 ML VIAL.NEB IH SCH ×3 (06:03→20:58)
[2016-08-08] MEDS ORDERED: HYDROcodone/ACETAMINOPHEN 1 EACH TABLET PO PRN (06:33)
[2016-08-08] MEDS: glipiZIDE 5 MG TABLET PO SCH ×2 (07:28→16:55)
[2016-08-08] MEDS: PANTOPRAZOLE SODIUM 20 MG TABLET.DR PO SCH (07:28)
[2016-08-08] MEDS: FLUTICASONE/SALMETEROL 14 PUFF DISK.W.DEV IH SCH ×2 (08:36→20:20)
[2016-08-08] MEDS: AMOX TR/POTASSIUM CLAVULANATE 500 MG TABLET PO SCH ×3 (08:37→20:21)
[2016-08-08] MEDS: hydrALAZINE HCL 10 MG TABLET PO SCH ×2 (08:37→14:21)
[2016-08-08] MEDS: OXYBUTYNIN CHLORIDE 5 MG TABLET PO SCH (08:38)
[2016-08-08] MEDS: CALCIUM POLYCARBOPHIL 625 MG TABLET PO SCH ×4 (08:38→20:20)
[2016-08-08] MEDS: CEPHALEXIN MONOHYDRATE 500 MG CAPSULE PO SCH ×3 (08:39→20:20)
[2016-08-08] MEDS: METOPROLOL TARTRATE 50 MG TABLET PO SCH ×2 (08:39→20:20)
[2016-08-08] MEDS: POTASSIUM CHLORIDE 10 MEQ TABLET.SA PO SCH (08:39)
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
[2016-08-08] MEDS: amLODIPine BESYLATE 10 MG TABLET PO SCH (08:40)
[2016-08-08] MEDS: MELOXICAM 15 MG TABLET PO SCH (08:40)
[2016-08-08] MEDS: MULTIVITAMINS 1 CAP CAPSULE PO SCH (08:40)
[2016-08-08] MEDS: NYSTATIN 15 APPL BTL TP SCH ×2 (08:40→20:22)
[2016-08-08] MEDS: TIOTROPIUM BROMIDE 5 CAP INHALER IH SCH (08:40)
[2016-08-08] MEDS: ENALAPRIL MALEATE 20 MG TABLET PO SCH ×2 (08:41→20:21)
--- NOTE | 2016-08-08 08:42 | PN ---
Subjective - Date and Time Seen Date: 08/08/16 Time: 07:30 Subjective Narrative: Less Drowsy. Bowels ok. Searching as far away as 2 hours from here for placement. May have to return to his own home. Objective - Review of Systems Generalized/Overall Review: Reports: Malaise EENTM: Reports: No Symptoms Reported Respiratory: Reports: No Symptoms Reported Cardiac: Reports: No Symptoms Reported Abdominal: Reports: No Symptoms Reported Genitourinary Symptoms: Reports: No Symptoms Reported Musculoskeletal Complaints: Reports: No Symptoms Reported Neurological: Reports: No Symptoms Reported Skin: Reports: No Symptoms Reported Endocrine: Reports: No Symptoms Reported Misc: All systems neg except as marked - Vitals Vitals: Last Vital Signs Selected Entries 08/07/16 15:10 Temperature 36.4 C L Temperature Temporal Artery Source Scan Pulse Rate 78 Respiratory 18 Rate Blood Pressure 152/95 Blood Pressure Sitting Position O2 Sat by Pulse 92 Oximetry Oxygen Delivery Room Air Method - Exam Constitutional: Present: Alert, Oriented x3, Cooperative, Well developed, Morbidly obese ENT Exam: Present: normal ENT inspection Neck: Present: normal inspection Respiratory: Present: lungs clear, no respiratory distress Cardiovascular/Chest: Present: regular rate, rhythm, no murmur Abdomen: Present: Normal bowel sounds, soft, nontender, nondistended, no rebound tenderness, no hepatospenomegaly, no masses, obese Extremity: Present: pedal edema Skin Exam: Present: no cyanosis, cool/dry Neurologic: Present: alert, oriented x 3 Appearance: Present: appropriate appearance, neat Eye contact: Present: cooperative Assessment/Plan Plan Narrative: Placement. - Problems/Diagnosis (1) Stage II pressure sore Problem: Chronic (2) HTN (hypertension) Problem: Acute (3) Intractable neuropathic pain of lower extremity Problem: Chronic Qualifiers: Laterality: unspecified laterality Qualified Code(s): G57.90 - Unspecified mononeuropathy of unspecified lower limb (4) Discharge planning issues Problem: Acute (5) Frequent falls Problem: Acute (6) Low back pain Problem: Acute (7) COPD (chronic obstructive pulmonary disease) Problem: Chronic (8) Chronic respiratory failure with hypoxia Problem: Chronic (9) Diabetes Problem: Chronic (10) Gait disturbance Problem: Chronic (11) Hyperlipemia Problem: Chronic (12) Hypertension Problem: Chronic (13) Lower extremity neuropathy Problem: Chronic (14) Obesity hypoventilation syndrome Problem: Chronic (15) PTSD (post-traumatic stress disorder) Problem: Chronic (16) Stasis dermatitis of both legs Problem: Chronic (17) Unresolved grief Problem: Chronic (18) Venous (peripheral) insufficiency Problem: Chronic (19) Weakness of both lower limbs Problem: Chronic (20) Diarrhea Problem: Acute (21) Autonomic neuropathy Problem: Acute
[2016-08-08] MEDS ORDERED: ACETAMINOPHEN 325 MG TABLET PO PRN ×2 (11:45→17:14)
[2016-08-08] MEDS: MONTELUKAST SODIUM 10 MG TABLET PO SCH (20:20)
[2016-08-08] MEDS: NICOTINE 21 MG PATC TD SCH (20:21)
[2016-08-08] MEDS: clonazePAM 0.5 MG TABLET PO SCH (20:21)
[2016-08-08] MEDS: hydrALAZINE HCL 25 MG TABLET PO SCH (20:21)
[2016-08-08] MEDS ORDERED: hydrALAZINE HCL 10 MG TABLET PO SCH (21:00)
[2016-08-08] MEDS: HYDROcodone/ACETAMINOPHEN 1 EACH TABLET PO PRN (22:09)
[2016-08-09] MEDS: HYDROcodone/ACETAMINOPHEN 1 EACH TABLET PO PRN ×2 (03:51→16:11)
[2016-08-09] MEDS: hydrALAZINE HCL 25 MG TABLET PO SCH ×3 (06:28→21:01)
[2016-08-09] MEDS: AMOX TR/POTASSIUM CLAVULANATE 500 MG TABLET PO SCH ×3 (06:29→21:05)
[2016-08-09] MEDS: glipiZIDE 5 MG TABLET PO SCH ×2 (06:29→16:14)
[2016-08-09] MEDS: PANTOPRAZOLE SODIUM 20 MG TABLET.DR PO SCH (06:29)
[2016-08-09] MEDS: CEPHALEXIN MONOHYDRATE 500 MG CAPSULE PO SCH ×3 (06:29→21:00)
[2016-08-09] MEDS: ALBUTEROL SULFATE 2.5 MG/3 ML VIAL.NEB IH SCH ×3 (07:56→18:17)
[2016-08-09] MEDS: POTASSIUM CHLORIDE 10 MEQ TABLET.SA PO SCH (08:43)
[2016-08-09] MEDS: MELOXICAM 15 MG TABLET PO SCH (08:43)
[2016-08-09] MEDS: METOPROLOL TARTRATE 50 MG TABLET PO SCH ×2 (08:43→21:02)
[2016-08-09] MEDS: ENALAPRIL MALEATE 20 MG TABLET PO SCH ×2 (08:44→21:04)
[2016-08-09] MEDS: CALCIUM POLYCARBOPHIL 625 MG TABLET PO SCH ×4 (08:45→21:02)
[2016-08-09] MEDS: MULTIVITAMINS 1 CAP CAPSULE PO SCH (08:46)
[2016-08-09] MEDS: NYSTATIN 15 APPL BTL TP SCH ×2 (08:46→21:07)
[2016-08-09] MEDS: amLODIPine BESYLATE 10 MG TABLET PO SCH (08:46)
[2016-08-09] MEDS: FLUTICASONE/SALMETEROL 14 PUFF DISK.W.DEV IH SCH ×2 (08:47→21:01)
[2016-08-09] MEDS: TIOTROPIUM BROMIDE 5 CAP INHALER IH SCH (08:47)
--- NOTE | 2016-08-09 17:08 | PN ---
Subjective - Date and Time Seen Date: 08/09/16 Time: 07:45 Subjective Narrative: Less Drowsy. Bowels ok. Searching as far away as 2 hours from here for placement. May have to return to his own home. pressure sores healed. Fell three times night before admitted here this time and called the ambulance.. no diarrhea. Pressure sores healed. Scored 25 out of 30 on mini mental status yesterday. Objective - Review of Systems Generalized/Overall Review: Reports: Malaise EENTM: Reports: No Symptoms Reported Respiratory: Reports: No Symptoms Reported Cardiac: Reports: No Symptoms Reported Abdominal: Reports: No Symptoms Reported Genitourinary Symptoms: Reports: No Symptoms Reported Musculoskeletal Complaints: Reports: No Symptoms Reported Neurological: Reports: No Symptoms Reported Skin: Reports: No Symptoms Reported Endocrine: Reports: No Symptoms Reported Misc: All systems neg except as marked - Vitals Vitals: Last Vital Signs Selected Entries 08/08/16 08/09/16 23:52 06:28 Temperature 37.0 C Temperature Temporal Artery Source Scan Pulse Rate 65 70 Respiratory 18 Rate Respiratory Normal Depth Respiratory Normal Effort Respiratory Normal Pattern Blood Pressure 96/40 130/64 O2 Sat by Pulse 91 Oximetry Oxygen Delivery Room Air Method - Exam Constitutional: Present: Alert, Oriented x3, Well developed, No distress, Morbidly obese ENT Exam: Present: normal ENT inspection, hearing grossly normal Neck: Present: normal inspection Respiratory: Present: lungs clear, no respiratory distress Cardiovascular/Chest: Present: regular rate, rhythm, no murmur Abdomen: Present: Normal bowel sounds, soft, nontender, nondistended, no rebound tenderness, no hepatospenomegaly, no masses, obese Extremity: Present: normal inspection, pedal edema Skin Exam: Present: no cyanosis, cool/dry Neurologic: Present: alert, oriented x 3 Appearance: Present: appropriate appearance, neat Eye contact: Present: cooperative, good eye contact, normal speech Assessment/Plan Plan Narrative: PT OT placement - Problems/Diagnosis (1) Stage II pressure sore Problem: Chronic (2) HTN (hypertension) Problem: Acute (3) Intractable neuropathic pain of lower extremity Problem: Chronic Qualifiers: Laterality: unspecified laterality Qualified Code(s): G57.90 - Unspecified mononeuropathy of unspecified lower limb (4) Discharge planning issues Problem: Acute (5) Frequent falls Problem: Acute (6) Low back pain Problem: Acute (7) COPD (chronic obstructive pulmonary disease) Problem: Chronic (8) Chronic respiratory failure with hypoxia Problem: Chronic (9) Diabetes Problem: Chronic (10) Gait disturbance Problem: Chronic (11) Hyperlipemia Problem: Chronic (12) Hypertension Problem: Chronic (13) Lower extremity neuropathy Problem: Chronic (14) Obesity hypoventilation syndrome Problem: Chronic (15) PTSD (post-traumatic stress disorder) Problem: Chronic (16) Stasis dermatitis of both legs Problem: Chronic (17) Unresolved grief Problem: Chronic (18) Venous (peripheral) insufficiency Problem: Chronic (19) Weakness of both lower limbs Problem: Chronic (20) Diarrhea Problem: Acute (21) Autonomic neuropathy Problem: Acute
[2016-08-09] MEDS: clonazePAM 0.5 MG TABLET PO SCH (21:02)
[2016-08-09] MEDS: MONTELUKAST SODIUM 10 MG TABLET PO SCH (21:04)
[2016-08-09] MEDS: NICOTINE 21 MG PATC TD SCH (21:06)
[2016-08-10] MEDS: hydrALAZINE HCL 25 MG TABLET PO SCH ×3 (06:57→20:45)
[2016-08-10] MEDS: glipiZIDE 5 MG TABLET PO SCH ×2 (06:57→17:36)
[2016-08-10] MEDS: AMOX TR/POTASSIUM CLAVULANATE 500 MG TABLET PO SCH ×3 (06:57→20:45)
[2016-08-10] MEDS: CEPHALEXIN MONOHYDRATE 500 MG CAPSULE PO SCH ×3 (06:57→20:46)
[2016-08-10] MEDS: PANTOPRAZOLE SODIUM 20 MG TABLET.DR PO SCH (06:58)
[2016-08-10] MEDS: HYDROcodone/ACETAMINOPHEN 1 EACH TABLET PO PRN ×2 (09:08→15:40)
[2016-08-10] MEDS: METOPROLOL TARTRATE 50 MG TABLET PO SCH ×2 (09:11→20:46)
[2016-08-10] MEDS: ENALAPRIL MALEATE 20 MG TABLET PO SCH ×2 (09:12→20:47)
[2016-08-10] MEDS: POTASSIUM CHLORIDE 10 MEQ TABLET.SA PO SCH (09:13)
[2016-08-10] MEDS: TIOTROPIUM BROMIDE 5 CAP INHALER IH SCH (09:14)
[2016-08-10] MEDS: MELOXICAM 15 MG TABLET PO SCH (09:14)
[2016-08-10] MEDS: FLUTICASONE/SALMETEROL 14 PUFF DISK.W.DEV IH SCH ×2 (09:14→20:44)
[2016-08-10] MEDS: amLODIPine BESYLATE 10 MG TABLET PO SCH (09:14)
[2016-08-10] MEDS: MULTIVITAMINS 1 CAP CAPSULE PO SCH (09:15)
[2016-08-10] MEDS: NYSTATIN 15 APPL BTL TP SCH ×2 (09:15→20:48)
[2016-08-10] MEDS: CALCIUM POLYCARBOPHIL 625 MG TABLET PO SCH ×4 (09:25→20:45)
[2016-08-10] MEDS: ALBUTEROL SULFATE 2.5 MG/3 ML VIAL.NEB IH SCH ×3 (12:36→18:20)
--- NOTE | 2016-08-10 18:18 | PN ---
Subjective - Date and Time Seen Date: 08/10/16 Time: 06:15 Subjective Narrative: No diarrhea. No pressure sores. No issues except placement. Moving around more. Objective - Review of Systems Generalized/Overall Review: Reports: Malaise EENTM: Reports: No Symptoms Reported Respiratory: Reports: No Symptoms Reported Cardiac: Reports: No Symptoms Reported Abdominal: Reports: No Symptoms Reported Genitourinary Symptoms: Reports: No Symptoms Reported Musculoskeletal Complaints: Reports: No Symptoms Reported Neurological: Reports: No Symptoms Reported Skin: Reports: No Symptoms Reported Endocrine: Reports: No Symptoms Reported Misc: All systems neg except as marked - Vitals Vitals: Last Vital Signs Selected Entries 08/10/16 03:42 Temperature Temporal Artery Source Scan Pulse Rate 72 Respiratory 20 Rate Respiratory Normal Depth Blood Pressure 156/79 Blood Pressure Supine Position O2 Sat by Pulse 92 Oximetry Oxygen Delivery Room Air Method Oxygen Flow 0 Rate - Exam Constitutional: Present: Alert, Oriented x3, Cooperative, Well developed, Morbidly obese ENT Exam: Present: normal ENT inspection Neck: Present: normal inspection Respiratory: Present: normal breath sounds, no respiratory distress Cardiovascular/Chest: Present: regular rate, rhythm, no murmur Abdomen: Present: Normal bowel sounds, soft, nontender, nondistended, no rebound tenderness, no hepatospenomegaly, no masses, obese Extremity: Present: normal inspection, no pedal edema Skin Exam: Present: normal color, warm/dry, no cyanosis Neurologic: Present: alert, oriented x 3 Appearance: Present: appropriate appearance, appropriate insight, neat, no memory impairment Eye contact: Present: cooperative, good eye contact, normal speech Thoughts: Present: normal thought pattern Assessment/Plan Plan Narrative: Await placement. - Problems/Diagnosis (1) Stage II pressure sore Problem: Chronic (2) HTN (hypertension) Problem: Acute (3) Intractable neuropathic pain of lower extremity Problem: Chronic Qualifiers: Laterality: unspecified laterality Qualified Code(s): G57.90 - Unspecified mononeuropathy of unspecified lower limb (4) Discharge planning issues Problem: Acute (5) Frequent falls Problem: Acute (6) Low back pain Problem: Acute (7) COPD (chronic obstructive pulmonary disease) Problem: Chronic (8) Chronic respiratory failure with hypoxia Problem: Chronic (9) Diabetes Problem: Chronic (10) Gait disturbance Problem: Chronic (11) Hyperlipemia Problem: Chronic (12) Hypertension Problem: Chronic (13) Lower extremity neuropathy Problem: Chronic (14) Obesity hypoventilation syndrome Problem: Chronic (15) PTSD (post-traumatic stress disorder) Problem: Chronic (16) Stasis dermatitis of both legs Problem: Chronic (17) Unresolved grief Problem: Chronic (18) Venous (peripheral) insufficiency Problem: Chronic (19) Weakness of both lower limbs Problem: Chronic (20) Diarrhea Problem: Acute (21) Autonomic neuropathy Problem: Acute
[2016-08-10] MEDS: clonazePAM 0.5 MG TABLET PO SCH (20:44)
[2016-08-10] MEDS: MONTELUKAST SODIUM 10 MG TABLET PO SCH (20:47)
[2016-08-10] MEDS: NICOTINE 21 MG PATC TD SCH (20:48)
[2016-08-11] MEDS: ALBUTEROL SULFATE 2.5 MG/3 ML VIAL.NEB IH SCH ×3 (06:04→18:17)
[2016-08-11] MEDS: CEPHALEXIN MONOHYDRATE 500 MG CAPSULE PO SCH ×3 (06:50→21:12)
[2016-08-11] MEDS: AMOX TR/POTASSIUM CLAVULANATE 500 MG TABLET PO SCH ×3 (06:50→21:11)
[2016-08-11] MEDS: PANTOPRAZOLE SODIUM 20 MG TABLET.DR PO SCH (06:50)
[2016-08-11] MEDS: hydrALAZINE HCL 25 MG TABLET PO SCH ×3 (06:51→21:12)
[2016-08-11] MEDS: glipiZIDE 5 MG TABLET PO SCH ×2 (06:51→17:19)
[2016-08-11] MEDS: HYDROcodone/ACETAMINOPHEN 1 EACH TABLET PO PRN (07:19)
[2016-08-11] MEDS: METOPROLOL TARTRATE 50 MG TABLET PO SCH ×2 (08:58→21:12)
[2016-08-11] MEDS: CALCIUM POLYCARBOPHIL 625 MG TABLET PO SCH ×4 (08:58→21:11)
[2016-08-11] MEDS: FLUTICASONE/SALMETEROL 14 PUFF DISK.W.DEV IH SCH ×2 (08:58→21:10)
[2016-08-11] MEDS: MELOXICAM 15 MG TABLET PO SCH (08:59)
[2016-08-11] MEDS: ENALAPRIL MALEATE 20 MG TABLET PO SCH ×2 (08:59→21:13)
[2016-08-11] MEDS: POTASSIUM CHLORIDE 10 MEQ TABLET.SA PO SCH (08:59)
[2016-08-11] MEDS: MULTIVITAMINS 1 CAP CAPSULE PO SCH (08:59)
[2016-08-11] MEDS: amLODIPine BESYLATE 10 MG TABLET PO SCH (08:59)
[2016-08-11] MEDS: NYSTATIN 15 APPL BTL TP SCH ×2 (09:00→21:14)
[2016-08-11] MEDS: TIOTROPIUM BROMIDE 5 CAP INHALER IH SCH (09:57)
--- NOTE | 2016-08-11 12:52 | PN ---
Subjective - Date and Time Seen Date: 08/11/16 Time: 07:15 Subjective Narrative: No diarrhea. No pressure sores. No issues except placement. Moving around more. Seems depressed. Objective - Review of Systems Generalized/Overall Review: Reports: Malaise EENTM: Reports: No Symptoms Reported Respiratory: Reports: No Symptoms Reported Cardiac: Reports: No Symptoms Reported Abdominal: Reports: No Symptoms Reported Genitourinary Symptoms: Reports: No Symptoms Reported Musculoskeletal Complaints: Reports: Back Pain Neurological: Reports: Depressed Skin: Reports: No Symptoms Reported Endocrine: Reports: No Symptoms Reported Misc: All systems neg except as marked - Vitals Vitals: Last Vital Signs Selected Entries 08/11/16 08/11/16 04:25 06:51 Temperature 36.4 C L Temperature Temporal Artery Source Scan Pulse Rate 69 84 Respiratory 20 Rate Blood Pressure 144/77 125/78 Blood Pressure Supine Position O2 Sat by Pulse 92 Oximetry Oxygen Delivery Room Air Method - Exam Constitutional: Present: Alert, Oriented x3, Cooperative, Well developed, Morbidly obese ENT Exam: Present: normal ENT inspection, hearing grossly normal Neck: Present: normal inspection Respiratory: Present: lungs clear, no respiratory distress Cardiovascular/Chest: Present: regular rate, rhythm, no murmur Abdomen: Present: Normal bowel sounds, soft, nontender, nondistended, no rebound tenderness, no hepatospenomegaly, no masses, obese Extremity: Present: lower extremity edema Skin Exam: Present: no cyanosis, cool/dry Neurologic: Present: alert, oriented x 3 Appearance: Present: appropriate appearance, neat Eye contact: Present: cooperative, good eye contact, normal speech Assessment/Plan Plan Narrative: PT OT add cymbalta for pain and depression, work on placement. - Problems/Diagnosis (1) Stage II pressure sore Problem: Chronic (2) HTN (hypertension) Problem: Acute (3) Intractable neuropathic pain of lower extremity Problem: Chronic Qualifiers: Laterality: unspecified laterality Qualified Code(s): G57.90 - Unspecified mononeuropathy of unspecified lower limb (4) Discharge planning issues Problem: Acute (5) Frequent falls Problem: Acute (6) Low back pain Problem: Acute (7) COPD (chronic obstructive pulmonary disease) Problem: Chronic (8) Chronic respiratory failure with hypoxia Problem: Chronic (9) Diabetes Problem: Chronic (10) Gait disturbance Problem: Chronic (11) Hyperlipemia Problem: Chronic (12) Hypertension Problem: Chronic (13) Lower extremity neuropathy Problem: Chronic (14) Obesity hypoventilation syndrome Problem: Chronic (15) PTSD (post-traumatic stress disorder) Problem: Chronic (16) Stasis dermatitis of both legs Problem: Chronic (17) Unresolved grief Problem: Chronic (18) Venous (peripheral) insufficiency Problem: Chronic (19) Weakness of both lower limbs Problem: Chronic (20) Diarrhea Problem: Acute (21) Autonomic neuropathy Problem: Acute
[2016-08-11] MEDS: clonazePAM 0.5 MG TABLET PO SCH (21:11)
[2016-08-11] MEDS: MONTELUKAST SODIUM 10 MG TABLET PO SCH (21:13)
[2016-08-11] MEDS: NICOTINE 21 MG PATC TD SCH (21:16)
[2016-08-12] MEDS: ALBUTEROL SULFATE 2.5 MG/3 ML VIAL.NEB IH SCH ×3 (06:05→18:03)
[2016-08-12] MEDS: AMOX TR/POTASSIUM CLAVULANATE 500 MG TABLET PO SCH ×3 (06:21→21:10)
[2016-08-12] MEDS: CEPHALEXIN MONOHYDRATE 500 MG CAPSULE PO SCH ×3 (06:21→21:11)
[2016-08-12] MEDS: glipiZIDE 5 MG TABLET PO SCH ×2 (06:22→16:47)
[2016-08-12] MEDS: hydrALAZINE HCL 25 MG TABLET PO SCH ×3 (06:22→21:11)
[2016-08-12] MEDS: PANTOPRAZOLE SODIUM 20 MG TABLET.DR PO SCH (06:27)
[2016-08-12] MEDS: HYDROcodone/ACETAMINOPHEN 1 EACH TABLET PO PRN ×2 (09:55→21:27)
[2016-08-12] MEDS: TIOTROPIUM BROMIDE 5 CAP INHALER IH SCH (09:56)
[2016-08-12] MEDS: FLUTICASONE/SALMETEROL 14 PUFF DISK.W.DEV IH SCH ×2 (09:56→21:09)
[2016-08-12] MEDS: DULoxetine HCL 30 MG CAPSULE.SA PO SCH (09:57)
[2016-08-12] MEDS: amLODIPine BESYLATE 10 MG TABLET PO SCH (09:57)
[2016-08-12] MEDS: CALCIUM POLYCARBOPHIL 625 MG TABLET PO SCH ×4 (09:57→21:09)
[2016-08-12] MEDS: ENALAPRIL MALEATE 20 MG TABLET PO SCH ×2 (09:57→21:13)
[2016-08-12] MEDS: MULTIVITAMINS 1 CAP CAPSULE PO SCH (09:58)
[2016-08-12] MEDS: MELOXICAM 15 MG TABLET PO SCH (09:58)
[2016-08-12] MEDS: POTASSIUM CHLORIDE 10 MEQ TABLET.SA PO SCH (09:58)
[2016-08-12] MEDS: NYSTATIN 15 APPL BTL TP SCH ×3 (09:58→21:40)
[2016-08-12] MEDS: METOPROLOL TARTRATE 50 MG TABLET PO SCH ×2 (09:58→21:12)
--- NOTE | 2016-08-12 15:09 | PN ---
Subjective - Date and Time Seen Date: 08/12/16 Time: 15:05 Subjective Narrative: No diarrhea. No pressure sores. No issues except placement. Moving around more. Seems depressed. Would like to participate in therapeutic pool. Had huge BM today, hard then soft formed. Is doing some stand up walking and walking with his wheelchair. Objective - Review of Systems Generalized/Overall Review: Reports: Malaise EENTM: Reports: No Symptoms Reported Respiratory: Reports: No Symptoms Reported Cardiac: Reports: No Symptoms Reported Abdominal: Reports: No Symptoms Reported Genitourinary Symptoms: Reports: No Symptoms Reported Musculoskeletal Complaints: Reports: Muscle Pain Neurological: Reports: No Symptoms Reported Skin: Reports: No Symptoms Reported Endocrine: Reports: No Symptoms Reported Misc: All systems neg except as marked - Vitals Vitals: Last Vital Signs Selected Entries 08/12/16 08/12/16 11:29 14:41 Temperature 36.5 C Temperature Temporal Artery Source Scan Pulse Rate 71 Respiratory 18 Rate Respiratory Normal Depth Respiratory Normal Effort Non-Labored Respiratory Normal Pattern Blood Pressure 148/82 148/82 O2 Sat by Pulse 92 Oximetry Oxygen Delivery Room Air Method - Exam Constitutional: Present: Alert, Oriented x3, Cooperative, Well developed, No distress, Morbidly obese ENT Exam: Present: normal ENT inspection, hearing grossly normal Neck: Present: normal inspection Cardiovascular/Chest: Present: regular rate, rhythm, no murmur Abdomen: Present: Normal bowel sounds, soft, nontender, nondistended, no rebound tenderness, no hepatospenomegaly, no masses, obese Extremity: Present: normal inspection, lower extremity edema Skin Exam: Present: no cyanosis, cool/dry Neurologic: Present: alert, oriented x 3 Eye contact: Present: cooperative, normal speech Assessment/Plan Plan Narrative: Continue. May order therapeutic pool as outpatient. 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 Qualifiers: Laterality: unspecified laterality Qualified Code(s): G57.90 - Unspecified mononeuropathy of unspecified lower limb (4) Discharge planning issues Problem: Acute (5) Frequent falls Problem: Acute (6) Low back pain Problem: Acute (7) COPD (chronic obstructive pulmonary disease) Problem: Chronic (8) Chronic respiratory failure with hypoxia Problem: Chronic (9) Diabetes Problem: Chronic (10) Gait disturbance Problem: Chronic (11) Hyperlipemia Problem: Chronic (12) Hypertension Problem: Chronic (13) Lower extremity neuropathy Problem: Chronic (14) Obesity hypoventilation syndrome Problem: Chronic (15) PTSD (post-traumatic stress disorder) Problem: Chronic (16) Stasis dermatitis of both legs Problem: Chronic (17) Unresolved grief Problem: Chronic (18) Venous (peripheral) insufficiency Problem: Chronic (19) Weakness of both lower limbs Problem: Chronic (20) Diarrhea Problem: Acute (21) Autonomic neuropathy Problem: Acute
[2016-08-12] MEDS: NICOTINE 21 MG PATC TD SCH (21:07)
[2016-08-12] MEDS: MONTELUKAST SODIUM 10 MG TABLET PO SCH (21:13)
[2016-08-12] MEDS: clonazePAM 0.5 MG TABLET PO SCH (21:21)
[2016-08-13] MEDS: ALBUTEROL SULFATE 2.5 MG/3 ML VIAL.NEB IH SCH ×3 (06:10→18:12)
[2016-08-13] MEDS: AMOX TR/POTASSIUM CLAVULANATE 500 MG TABLET PO SCH ×3 (06:13→21:10)
[2016-08-13] MEDS: CEPHALEXIN MONOHYDRATE 500 MG CAPSULE PO SCH ×3 (06:13→21:10)
[2016-08-13] MEDS: PANTOPRAZOLE SODIUM 20 MG TABLET.DR PO SCH (06:14)
[2016-08-13] MEDS: HYDROcodone/ACETAMINOPHEN 1 EACH TABLET PO PRN ×2 (06:23→18:17)
[2016-08-13] MEDS: glipiZIDE 5 MG TABLET PO SCH ×2 (06:24→16:53)
[2016-08-13] MEDS: hydrALAZINE HCL 25 MG TABLET PO SCH ×3 (06:24→21:05)
[2016-08-13] MEDS: METOPROLOL TARTRATE 50 MG TABLET PO SCH ×2 (09:54→21:07)
[2016-08-13] MEDS: MULTIVITAMINS 1 CAP CAPSULE PO SCH (09:54)
[2016-08-13] MEDS: ENALAPRIL MALEATE 20 MG TABLET PO SCH ×2 (09:54→21:10)
[2016-08-13] MEDS: amLODIPine BESYLATE 10 MG TABLET PO SCH (09:55)
[2016-08-13] MEDS: TIOTROPIUM BROMIDE 5 CAP INHALER IH SCH (09:55)
[2016-08-13] MEDS: DULoxetine HCL 30 MG CAPSULE.SA PO SCH (09:55)
[2016-08-13] MEDS: POTASSIUM CHLORIDE 10 MEQ TABLET.SA PO SCH (09:55)
[2016-08-13] MEDS: FLUTICASONE/SALMETEROL 14 PUFF DISK.W.DEV IH SCH ×2 (09:55→21:04)
[2016-08-13] MEDS: MELOXICAM 15 MG TABLET PO SCH (09:55)
[2016-08-13] MEDS: CALCIUM POLYCARBOPHIL 625 MG TABLET PO SCH ×4 (09:58→21:11)
[2016-08-13] MEDS: NYSTATIN 15 APPL BTL TP SCH ×3 (09:59→21:37)
--- NOTE | 2016-08-13 11:07 | PN ---
Subjective - Date and Time Seen Date: 08/13/16 Time: 11:04 Subjective Narrative: No diarrhea. No pressure sores. No issues except placement. Moving around more. Seems depressed. Would like to participate in therapeutic pool after discharge. Objective - Review of Systems Generalized/Overall Review: Reports: Malaise EENTM: Reports: No Symptoms Reported Respiratory: Reports: No Symptoms Reported Cardiac: Reports: No Symptoms Reported Abdominal: Reports: No Symptoms Reported Genitourinary Symptoms: Reports: No Symptoms Reported Musculoskeletal Complaints: Reports: Muscle Pain Neurological: Reports: No Symptoms Reported Skin: Reports: No Symptoms Reported Endocrine: Reports: No Symptoms Reported Misc: All systems neg except as marked - Vitals Vitals: Last Vital Signs Selected Entries 08/13/16 10:05 Temperature 36.4 C L Temperature Temporal Artery Source Scan Pulse Rate 81 Pulse Rhythm Regular Pulse Strength Normal Respiratory 18 Rate Respiratory Normal Depth Respiratory Normal Effort Non-Labored Respiratory Normal Pattern Blood Pressure 137/76 O2 Sat by Pulse 95 Oximetry Oxygen Delivery Room Air Method - Exam Constitutional: Present: Alert, Oriented x3, Cooperative, Well developed, Morbidly obese ENT Exam: Present: normal ENT inspection, hearing grossly normal Neck: Present: normal inspection Respiratory: Present: normal breath sounds, no respiratory distress Cardiovascular/Chest: Present: normal peripheral pulses, regular rate, rhythm, edema Abdomen: Present: Normal bowel sounds, soft, nontender, nondistended, no rebound tenderness, no hepatospenomegaly, no masses, obese Extremity: Present: normal inspection, no pedal edema Skin Exam: Present: normal color, warm/dry, no cyanosis Neurologic: Present: alert, oriented x 3 Appearance: Present: appropriate appearance, neat Eye contact: Present: cooperative, good eye contact, normal speech Assessment/Plan Plan Narrative: Continue to assist movement. Continue with placement. 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 Qualifiers: Laterality: unspecified laterality Qualified Code(s): G57.90 - Unspecified mononeuropathy of unspecified lower limb (4) Discharge planning issues Problem: Acute (5) Frequent falls Problem: Acute (6) Low back pain Problem: Acute (7) COPD (chronic obstructive pulmonary disease) Problem: Chronic (8) Chronic respiratory failure with hypoxia Problem: Chronic (9) Diabetes Problem: Chronic (10) Gait disturbance Problem: Chronic (11) Hyperlipemia Problem: Chronic (12) Hypertension Problem: Chronic (13) Lower extremity neuropathy Problem: Chronic (14) Obesity hypoventilation syndrome Problem: Chronic (15) PTSD (post-traumatic stress disorder) Problem: Chronic (16) Stasis dermatitis of both legs Problem: Chronic (17) Unresolved grief Problem: Chronic (18) Venous (peripheral) insufficiency Problem: Chronic (19) Weakness of both lower limbs Problem: Chronic (20) Diarrhea Problem: Acute (21) Autonomic neuropathy Problem: Acute
[2016-08-13] MEDS: MONTELUKAST SODIUM 10 MG TABLET PO SCH (21:06)
[2016-08-13] MEDS: NICOTINE 21 MG PATC TD SCH (21:07)
[2016-08-13] MEDS: clonazePAM 0.5 MG TABLET PO SCH (21:22)
[2016-08-14] MEDS: ALBUTEROL SULFATE 2.5 MG/3 ML VIAL.NEB IH SCH ×3 (06:09→18:13)
[2016-08-14] MEDS: glipiZIDE 5 MG TABLET PO SCH ×2 (07:27→16:11)
[2016-08-14] MEDS: PANTOPRAZOLE SODIUM 20 MG TABLET.DR PO SCH (07:28)
[2016-08-14] MEDS: hydrALAZINE HCL 25 MG TABLET PO SCH ×3 (07:28→20:15)
[2016-08-14] MEDS: FLUTICASONE/SALMETEROL 14 PUFF DISK.W.DEV IH SCH ×2 (09:39→20:15)
[2016-08-14] MEDS: amLODIPine BESYLATE 10 MG TABLET PO SCH (09:40)
[2016-08-14] MEDS: MELOXICAM 15 MG TABLET PO SCH (09:40)
[2016-08-14] MEDS: CALCIUM POLYCARBOPHIL 625 MG TABLET PO SCH ×4 (09:40→20:16)
[2016-08-14] MEDS: MULTIVITAMINS 1 CAP CAPSULE PO SCH (09:40)
[2016-08-14] MEDS: DULoxetine HCL 30 MG CAPSULE.SA PO SCH (09:40)
[2016-08-14] MEDS: POTASSIUM CHLORIDE 10 MEQ TABLET.SA PO SCH (09:41)
[2016-08-14] MEDS: ENALAPRIL MALEATE 20 MG TABLET PO SCH ×2 (09:42→20:17)
[2016-08-14] MEDS: METOPROLOL TARTRATE 50 MG TABLET PO SCH ×2 (09:42→20:16)
[2016-08-14] MEDS: NYSTATIN 15 APPL BTL TP SCH ×2 (09:43→20:18)
[2016-08-14] MEDS: TIOTROPIUM BROMIDE 5 CAP INHALER IH SCH (09:44)
--- NOTE | 2016-08-14 11:41 | PN ---
Subjective - Date and Time Seen Date: 08/14/16 Time: 11:38 Subjective Narrative: Moving more. Slightly sore. Wants to now if podiatry can see him in the hospital. I spoke with Dr. Blake, he has to be outpatient. Objective - Review of Systems Generalized/Overall Review: Reports: Malaise EENTM: Reports: No Symptoms Reported Respiratory: Reports: No Symptoms Reported Cardiac: Reports: No Symptoms Reported Abdominal: Reports: No Symptoms Reported Genitourinary Symptoms: Reports: No Symptoms Reported Musculoskeletal Complaints: Reports: No Symptoms Reported Neurological: Reports: No Symptoms Reported Skin: Reports: No Symptoms Reported Endocrine: Reports: No Symptoms Reported Misc: All systems neg except as marked - Vitals Vitals: Last Vital Signs Selected Entries 08/14/16 08/14/16 08:00 09:42 Temperature 36.7 C Temperature Temporal Artery Source Scan Pulse Rate 76 76 Respiratory 18 Rate Respiratory Normal Depth Blood Pressure 149/79 149/79 Blood Pressure Sitting Position O2 Sat by Pulse 95 Oximetry Oxygen Delivery Room Air Method - Exam Constitutional: Present: Alert, Oriented x3, Cooperative, Well developed, No distress, Morbidly obese ENT Exam: Present: normal ENT inspection, hearing grossly normal Neck: Present: normal inspection Respiratory: Present: lungs clear, no respiratory distress Cardiovascular/Chest: Present: regular rate, rhythm, no murmur Abdomen: Present: Normal bowel sounds, soft, nontender, nondistended, no rebound tenderness, no hepatospenomegaly, no masses, obese Extremity: Present: lower extremity edema Skin Exam: Present: no cyanosis, cool/dry Neurologic: Present: alert, oriented x 3 Appearance: Present: appropriate appearance, neat Eye contact: Present: cooperative Assessment/Plan Plan Narrative: Continue current plan. Work on placement. 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 Qualifiers: Laterality: unspecified laterality Qualified Code(s): G57.90 - Unspecified mononeuropathy of unspecified lower limb (4) Discharge planning issues Problem: Acute (5) Frequent falls Problem: Acute (6) Low back pain Problem: Acute (7) COPD (chronic obstructive pulmonary disease) Problem: Chronic (8) Chronic respiratory failure with hypoxia Problem: Chronic (9) Diabetes Problem: Chronic (10) Gait disturbance Problem: Chronic (11) Hyperlipemia Problem: Chronic (12) Hypertension Problem: Chronic (13) Lower extremity neuropathy Problem: Chronic (14) Obesity hypoventilation syndrome Problem: Chronic (15) PTSD (post-traumatic stress disorder) Problem: Chronic (16) Stasis dermatitis of both legs Problem: Chronic (17) Unresolved grief Problem: Chronic (18) Venous (peripheral) insufficiency Problem: Chronic (19) Weakness of both lower limbs Problem: Chronic (20) Diarrhea Problem: Acute (21) Autonomic neuropathy Problem: Acute
[2016-08-14] MEDS: HYDROcodone/ACETAMINOPHEN 1 EACH TABLET PO PRN ×2 (14:43→20:42)
[2016-08-14] MEDS: clonazePAM 0.5 MG TABLET PO SCH (20:16)
[2016-08-14] MEDS: MONTELUKAST SODIUM 10 MG TABLET PO SCH (20:17)
[2016-08-14] MEDS: NICOTINE 21 MG PATC TD SCH (20:20)
[2016-08-15] MEDS: ALBUTEROL SULFATE 2.5 MG/3 ML VIAL.NEB IH SCH ×3 (06:07→18:21)
[2016-08-15] MEDS: hydrALAZINE HCL 25 MG TABLET PO SCH ×2 (06:56→13:24)
[2016-08-15] MEDS: PANTOPRAZOLE SODIUM 20 MG TABLET.DR PO SCH (06:56)
[2016-08-15] MEDS: glipiZIDE 5 MG TABLET PO SCH ×2 (06:56→16:52)
[2016-08-15] MEDS: POTASSIUM CHLORIDE 10 MEQ TABLET.SA PO SCH (09:02)
[2016-08-15] MEDS: MULTIVITAMINS 1 CAP CAPSULE PO SCH (09:02)
[2016-08-15] MEDS: METOPROLOL TARTRATE 50 MG TABLET PO SCH ×2 (09:02→20:15)
[2016-08-15] MEDS: amLODIPine BESYLATE 10 MG TABLET PO SCH (09:02)
[2016-08-15] MEDS: DULoxetine HCL 30 MG CAPSULE.SA PO SCH (09:02)
[2016-08-15] MEDS: CALCIUM POLYCARBOPHIL 625 MG TABLET PO SCH ×4 (09:02→20:14)
[2016-08-15] MEDS: ENALAPRIL MALEATE 20 MG TABLET PO SCH ×2 (09:02→20:14)
[2016-08-15] MEDS: MELOXICAM 15 MG TABLET PO SCH (09:02)
[2016-08-15] MEDS: TIOTROPIUM BROMIDE 5 CAP INHALER IH SCH (09:03)
[2016-08-15] MEDS: FLUTICASONE/SALMETEROL 14 PUFF DISK.W.DEV IH SCH ×2 (09:03→20:13)
[2016-08-15] MEDS: NYSTATIN 15 APPL BTL TP SCH ×2 (09:07→20:15)
[2016-08-15] MEDS: HYDROcodone/ACETAMINOPHEN 1 EACH TABLET PO PRN ×2 (13:21→20:22)
[2016-08-15] MEDS ORDERED: DULoxetine HCL 30 MG CAPSULE.SA PO ONE (14:45)
[2016-08-15] MEDS ORDERED: hydrALAZINE HCL 25 MG TABLET PO ONE (14:45)
--- NOTE | 2016-08-15 15:33 | PN ---
Subjective - Date and Time Seen Date: 08/15/16 Time: 15:27 Subjective Narrative: Things are about the same. I spoke with the direct entry midwife, she cannot see him until after he is discharged. Objective - Review of Systems Generalized/Overall Review: Reports: Malaise EENTM: Reports: No Symptoms Reported Respiratory: Reports: No Symptoms Reported Cardiac: Reports: No Symptoms Reported Abdominal: Reports: No Symptoms Reported Genitourinary Symptoms: Reports: No Symptoms Reported Musculoskeletal Complaints: Reports: Muscle Pain Neurological: Reports: No Symptoms Reported Skin: Reports: No Symptoms Reported Endocrine: Reports: No Symptoms Reported Misc: All systems neg except as marked - Vitals Vitals: Last Vital Signs Selected Entries 08/13/16 08/13/16 08/13/16 09:54 09:55 10:05 Blood Pressure 147/75 147/75 137/76 08/13/16 08/13/16 08/13/16 13:48 14:32 19:20 Blood Pressure 135/68 150/83 115/69 08/13/16 08/13/16 08/13/16 21:05 21:07 21:10 Blood Pressure 115/69 115/69 115/69 08/14/16 08/14/16 08/14/16 02:05 07:28 08:00 Blood Pressure 132/74 132/74 149/79 08/14/16 08/14/16 08/14/16 09:40 09:42 13:25 Blood Pressure 149/79 149/79 149/79 08/14/16 08/14/16 08/14/16 16:19 20:15 20:16 Blood Pressure 147/66 147/66 147/66 08/14/16 08/14/16 08/15/16 20:17 22:50 04:30 Blood Pressure 147/66 141/66 152/81 08/15/16 08/15/16 08/15/16 06:54 06:56 09:02 Blood Pressure 146/70 146/70 146/70 08/15/16 08/15/16 08/15/16 11:38 13:24 14:47 Blood Pressure 148/84 148/84 147/67 - Exam Constitutional: Present: Alert, Oriented x3, Cooperative, Well developed, Morbidly obese ENT Exam: Present: normal ENT inspection, hearing grossly normal Neck: Present: normal inspection Respiratory: Present: normal breath sounds, no respiratory distress Cardiovascular/Chest: Present: regular rate, rhythm, no murmur Abdomen: Present: Normal bowel sounds, soft, nontender, nondistended, no rebound tenderness, no hepatospenomegaly, no masses, obese Extremity: Present: normal range of motion, non-tender, normal inspection, no calf tenderness, lower extremity edema Skin Exam: Present: normal color, warm/dry, no cyanosis Neurologic: Present: alert, oriented x 3 Appearance: Present: appropriate appearance, neat Eye contact: Present: cooperative, good eye contact, normal speech Assessment/Plan Plan Narrative: BP tends a little high. Will increase hydralazine. Increase cymbalta for pain control and depression. 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 Qualifiers: Laterality: unspecified laterality Qualified Code(s): G57.90 - Unspecified mononeuropathy of unspecified lower limb (4) Discharge planning issues Problem: Acute (5) Frequent falls Problem: Acute (6) Low back pain Problem: Acute (7) COPD (chronic obstructive pulmonary disease) Problem: Chronic (8) Chronic respiratory failure with hypoxia Problem: Chronic (9) Diabetes Problem: Chronic (10) Gait disturbance Problem: Chronic (11) Hyperlipemia Problem: Chronic (12) Hypertension Problem: Chronic (13) Lower extremity neuropathy Problem: Chronic (14) Obesity hypoventilation syndrome Problem: Chronic (15) PTSD (post-traumatic stress disorder) Problem: Chronic (16) Stasis dermatitis of both legs Problem: Chronic (17) Unresolved grief Problem: Chronic (18) Venous (peripheral) insufficiency Problem: Chronic (19) Weakness of both lower limbs Problem: Chronic (20) Diarrhea Problem: Acute (21) Autonomic neuropathy Problem: Acute
[2016-08-15] MEDS: clonazePAM 0.5 MG TABLET PO SCH (20:14)
[2016-08-15] MEDS: hydrALAZINE HCL 50 MG TABLET PO SCH (20:15)
[2016-08-15] MEDS: MONTELUKAST SODIUM 10 MG TABLET PO SCH (20:15)
[2016-08-15] MEDS: NICOTINE 21 MG PATC TD SCH (20:16)
[2016-08-16] MEDS: ALBUTEROL SULFATE 2.5 MG/3 ML VIAL.NEB IH SCH ×3 (06:12→18:15)
[2016-08-16] MEDS: glipiZIDE 5 MG TABLET PO SCH ×2 (07:15→16:24)
[2016-08-16] MEDS: hydrALAZINE HCL 50 MG TABLET PO SCH ×3 (07:15→21:19)
[2016-08-16] MEDS: PANTOPRAZOLE SODIUM 20 MG TABLET.DR PO SCH (07:15)
[2016-08-16] MEDS: HYDROcodone/ACETAMINOPHEN 1 EACH TABLET PO PRN ×3 (07:19→23:07)
--- NOTE | 2016-08-16 07:49 | PN ---
Subjective - Date and Time Seen Date: 08/16/16 Time: 07:45 Subjective Narrative: He continues to work at increased mobilization. Objective - Review of Systems Generalized/Overall Review: Reports: Weakness EENTM: Reports: No Symptoms Reported Respiratory: Reports: No Symptoms Reported Cardiac: Reports: No Symptoms Reported Abdominal: Reports: No Symptoms Reported Genitourinary Symptoms: Reports: No Symptoms Reported Musculoskeletal Complaints: Reports: Other - stiffness, soreness, weakness Neurological: Reports: No Symptoms Reported Skin: Reports: No Symptoms Reported Endocrine: Reports: No Symptoms Reported Misc: All systems neg except as marked - Vitals Vitals: Last Vital Signs Selected Entries 08/16/16 08/16/16 04:45 07:15 Temperature 36.6 C Temperature Temporal Artery Source Scan Pulse Rate 69 78 Respiratory 20 Rate Blood Pressure 160/74 160/74 Blood Pressure Supine Position O2 Sat by Pulse 92 Oximetry Oxygen Delivery Room Air Method Oxygen Flow 0 Rate - Exam Constitutional: Present: Alert, Oriented x3, Cooperative, Well developed, No distress, Morbidly obese ENT Exam: Present: normal ENT inspection, hearing grossly normal Neck: Present: normal inspection Respiratory: Present: normal breath sounds, no respiratory distress Cardiovascular/Chest: Present: regular rate, rhythm, no murmur Abdomen: Present: Normal bowel sounds, soft, nontender, nondistended, no rebound tenderness, no hepatospenomegaly, no masses, obese Extremity: Present: normal range of motion, no calf tenderness, pedal edema Skin Exam: Present: normal color, warm/dry, no cyanosis Neurologic: Present: alert, oriented x 3 Appearance: Present: appropriate appearance, neat Eye contact: Present: cooperative, good eye contact, normal speech Assessment/Plan Plan Narrative: same. watch BP. BMP in AM. work on [employer]. 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 Qualifiers: Laterality: unspecified laterality Qualified Code(s): G57.90 - Unspecified mononeuropathy of unspecified lower limb (4) Discharge planning issues Problem: Acute (5) Frequent falls Problem: Acute (6) Low back pain Problem: Acute (7) COPD (chronic obstructive pulmonary disease) Problem: Chronic (8) Chronic respiratory failure with hypoxia Problem: Chronic (9) Diabetes Problem: Chronic (10) Gait disturbance Problem: Chronic (11) Hyperlipemia Problem: Chronic (12) Hypertension Problem: Chronic (13) Lower extremity neuropathy Problem: Chronic (14) Obesity hypoventilation syndrome Problem: Chronic (15) PTSD (post-traumatic stress disorder) Problem: Chronic (16) Stasis dermatitis of both legs Problem: Chronic (17) Unresolved grief Problem: Chronic (18) Venous (peripheral) insufficiency Problem: Chronic (19) Weakness of both lower limbs Problem: Chronic (20) Diarrhea Problem: Acute (21) Autonomic neuropathy Problem: Acute
[2016-08-16] MEDS: METOPROLOL TARTRATE 50 MG TABLET PO SCH ×2 (08:59→21:20)
[2016-08-16] MEDS: ENALAPRIL MALEATE 20 MG TABLET PO SCH ×2 (09:00→21:22)
[2016-08-16] MEDS: amLODIPine BESYLATE 10 MG TABLET PO SCH (09:00)
[2016-08-16] MEDS: CALCIUM POLYCARBOPHIL 625 MG TABLET PO SCH ×4 (09:01→21:20)
[2016-08-16] MEDS: MULTIVITAMINS 1 CAP CAPSULE PO SCH (09:01)
[2016-08-16] MEDS: DULoxetine HCL 30 MG CAPSULE.SA PO SCH (09:01)
[2016-08-16] MEDS: MELOXICAM 15 MG TABLET PO SCH (09:01)
[2016-08-16] MEDS: TIOTROPIUM BROMIDE 5 CAP INHALER IH SCH (09:01)
[2016-08-16] MEDS: POTASSIUM CHLORIDE 10 MEQ TABLET.SA PO SCH (09:01)
[2016-08-16] MEDS: FLUTICASONE/SALMETEROL 14 PUFF DISK.W.DEV IH SCH ×2 (09:02→21:18)
[2016-08-16] MEDS: NYSTATIN 15 APPL BTL TP SCH ×2 (09:07→22:11)
[2016-08-16] MEDS: NICOTINE 21 MG PATC TD SCH (21:21)
[2016-08-16] MEDS: MONTELUKAST SODIUM 10 MG TABLET PO SCH (21:21)
[2016-08-16] MEDS: clonazePAM 0.5 MG TABLET PO SCH (21:27)
[2016-08-17] MEDS: ALBUTEROL SULFATE 2.5 MG/3 ML VIAL.NEB IH SCH ×3 (06:23→18:51)
[2016-08-17 06:24] LABS: Calcium * 9.1 mg/dL (7.9-10.9); Carbon Dioxide 25.4 mmol/L (24-32.6); Estimated Creat Clear 107.2; Potassium 3.4 mmol/L (3.4-4.6)
[2016-08-17] MEDS: glipiZIDE 5 MG TABLET PO SCH ×2 (07:15→16:11)
[2016-08-17] MEDS: PANTOPRAZOLE SODIUM 20 MG TABLET.DR PO SCH (07:15)
[2016-08-17] MEDS: hydrALAZINE HCL 50 MG TABLET PO SCH ×3 (07:15→21:20)
--- NOTE | 2016-08-17 08:27 | PN ---
Subjective - Date and Time Seen Date: 08/17/16 Time: 07:15 Subjective Narrative: He continues to work at increased mobilization. He has a painful pop in his right knee when extending and flexing and would like this addressed. Objective - Review of Systems Generalized/Overall Review: Reports: No Symptoms Reported EENTM: Reports: No Symptoms Reported Respiratory: Reports: No Symptoms Reported Cardiac: Reports: No Symptoms Reported Abdominal: Reports: No Symptoms Reported Genitourinary Symptoms: Reports: No Symptoms Reported Musculoskeletal Complaints: Reports: Other - stiffness and soreness in muscles and back, and now the right knee complaint Neurological: Reports: No Symptoms Reported Skin: Reports: No Symptoms Reported Endocrine: Reports: No Symptoms Reported Misc: All systems neg except as marked - Vitals Vitals: Last Vital Signs Selected Entries 08/17/16 08/17/16 06:00 07:15 Temperature 36.6 C Temperature Temporal Artery Source Scan Pulse Rate 70 72 Respiratory 18 Rate Respiratory Normal Depth Blood Pressure 141/75 141/75 Blood Pressure Supine Position O2 Sat by Pulse 95 Oximetry Oxygen Delivery Room Air Method - Abnormal Lab Findings Abnormal Lab Findings: Abnormal Lab Results 08/17/16 Range/Units 05:39 Sodium 143 H (132-142) mmol/L Plasma Sodium 143 H (130-142) mmol/L Chloride 108 H (97-106) mmol/L BUN/Creatinine Ratio 22.0 H (9.0-21.6) - Exam Constitutional: Present: Alert, Oriented x3, Cooperative, Well developed, No distress, Morbidly obese ENT Exam: Present: normal ENT inspection, hearing grossly normal Neck: Present: normal inspection Respiratory: Present: normal breath sounds, no respiratory distress Cardiovascular/Chest: Present: regular rate, rhythm, no murmur Abdomen: Present: Normal bowel sounds, soft, nontender, nondistended, no rebound tenderness, no hepatospenomegaly, no masses, obese Extremity: Present: pedal edema, other - his right knee audibly pops with flexion and extension and is tender laterally Appearance: Present: appropriate appearance, neat, no memory impairment Eye contact: Present: cooperative, good eye contact, normal speech Assessment/Plan Plan Narrative: Continue with PT and OT and placement plans. At his request, evaluate right knee. 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 Qualifiers: Laterality: unspecified laterality Qualified Code(s): G57.90 - Unspecified mononeuropathy of unspecified lower limb (4) Discharge planning issues Problem: Acute (5) Frequent falls Problem: Acute (6) Low back pain Problem: Acute (7) COPD (chronic obstructive pulmonary disease) Problem: Chronic (8) Chronic respiratory failure with hypoxia Problem: Chronic (9) Diabetes Problem: Chronic (10) Gait disturbance Problem: Chronic (11) Hyperlipemia Problem: Chronic (12) Hypertension Problem: Chronic (13) Lower extremity neuropathy Problem: Chronic (14) Obesity hypoventilation syndrome Problem: Chronic (15) PTSD (post-traumatic stress disorder) Problem: Chronic (16) Stasis dermatitis of both legs Problem: Chronic (17) Unresolved grief Problem: Chronic (18) Venous (peripheral) insufficiency Problem: Chronic (19) Weakness of both lower limbs Problem: Chronic (20) Diarrhea Problem: Acute (21) Autonomic neuropathy Problem: Acute (22) Right knee pain Problem: Acute
[2016-08-17] MEDS: TIOTROPIUM BROMIDE 5 CAP INHALER IH SCH (08:47)
[2016-08-17] MEDS: FLUTICASONE/SALMETEROL 14 PUFF DISK.W.DEV IH SCH ×2 (08:47→21:19)
[2016-08-17] MEDS: METOPROLOL TARTRATE 50 MG TABLET PO SCH ×2 (08:47→21:26)
[2016-08-17] MEDS: POTASSIUM CHLORIDE 10 MEQ TABLET.SA PO SCH (08:47)
[2016-08-17] MEDS: ENALAPRIL MALEATE 20 MG TABLET PO SCH ×2 (08:48→21:21)
[2016-08-17] MEDS: MELOXICAM 15 MG TABLET PO SCH (08:48)
[2016-08-17] MEDS: amLODIPine BESYLATE 10 MG TABLET PO SCH (08:48)
[2016-08-17] MEDS: MULTIVITAMINS 1 CAP CAPSULE PO SCH (08:48)
[2016-08-17] MEDS: CALCIUM POLYCARBOPHIL 625 MG TABLET PO SCH ×4 (08:48→21:19)
[2016-08-17] MEDS: DULoxetine HCL 30 MG CAPSULE.SA PO SCH (08:48)
[2016-08-17] MEDS: NYSTATIN 15 APPL BTL TP SCH ×2 (08:49→21:22)
[2016-08-17] MEDS: HYDROcodone/ACETAMINOPHEN 1 EACH TABLET PO PRN ×2 (16:08→21:19)
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
[2016-08-17] MEDS: clonazePAM 0.5 MG TABLET PO SCH (21:19)
[2016-08-17] MEDS: NICOTINE 21 MG PATC TD SCH (21:20)
[2016-08-17] MEDS: MONTELUKAST SODIUM 10 MG TABLET PO SCH (21:21)
[2016-08-18] MEDS: ALBUTEROL SULFATE 2.5 MG/3 ML VIAL.NEB IH SCH ×3 (06:17→18:07)
[2016-08-18] MEDS: HYDROcodone/ACETAMINOPHEN 1 EACH TABLET PO PRN ×2 (06:43→14:50)
[2016-08-18] MEDS: hydrALAZINE HCL 50 MG TABLET PO SCH ×3 (06:45→20:45)
[2016-08-18] MEDS: PANTOPRAZOLE SODIUM 20 MG TABLET.DR PO SCH (06:49)
[2016-08-18] MEDS: glipiZIDE 5 MG TABLET PO SCH ×2 (07:20→16:45)
--- NOTE | 2016-08-18 08:06 | PN ---
Subjective - Date and Time Seen Date: 08/18/16 Time: 08:01 Subjective Narrative: He continues to work at increased mobilization. Have reviewed knee xray and consult report. Prefers oral meds and exercise. Objective - Review of Systems Generalized/Overall Review: Reports: Weakness EENTM: Reports: No Symptoms Reported Respiratory: Reports: No Symptoms Reported Cardiac: Reports: No Symptoms Reported Abdominal: Reports: No Symptoms Reported Genitourinary Symptoms: Reports: No Symptoms Reported Musculoskeletal Complaints: Reports: Joint Pain, Muscle Pain, Other - weakness Neurological: Reports: No Symptoms Reported Skin: Reports: No Symptoms Reported Endocrine: Reports: No Symptoms Reported Misc: All systems neg except as marked - Vitals Vitals: Last Vital Signs Selected Entries 08/18/16 08/18/16 06:35 06:45 Temperature 37.1 C Temperature Temporal Artery Source Scan Pulse Rate 79 79 Respiratory 18 Rate Respiratory Normal Depth Blood Pressure 155/83 155/83 Blood Pressure Sitting Position O2 Sat by Pulse 95 Oximetry Oxygen Delivery Room Air Method - Exam Constitutional: Present: Alert, Oriented x3, Cooperative, Well developed, Morbidly obese ENT Exam: Present: normal ENT inspection, hearing grossly normal Neck: Present: normal inspection Respiratory: Present: normal breath sounds, no respiratory distress Cardiovascular/Chest: Present: regular rate, rhythm, no murmur Abdomen: Present: Normal bowel sounds, soft, nontender, nondistended, no rebound tenderness, no hepatospenomegaly, no masses, obese Extremity: Present: lower extremity edema Skin Exam: Present: normal color, warm/dry, no cyanosis Neurologic: Present: alert, oriented x 3 Appearance: Present: appropriate appearance Eye contact: Present: cooperative, normal speech, other - refused PT yesterday, knee hurt Thoughts: Present: normal thought pattern Assessment/Plan Plan Narrative: In addition to other PT, quad strenghtening. Work on placement. 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 Qualifiers: Laterality: unspecified laterality Qualified Code(s): G57.90 - Unspecified mononeuropathy of unspecified lower limb (4) Discharge planning issues Problem: Acute (5) Frequent falls Problem: Acute (6) Low back pain Problem: Acute (7) COPD (chronic obstructive pulmonary disease) Problem: Chronic (8) Chronic respiratory failure with hypoxia Problem: Chronic (9) Diabetes Problem: Chronic (10) Gait disturbance Problem: Chronic (11) Hyperlipemia Problem: Chronic (12) Hypertension Problem: Chronic (13) Lower extremity neuropathy Problem: Chronic (14) Obesity hypoventilation syndrome Problem: Chronic (15) PTSD (post-traumatic stress disorder) Problem: Chronic (16) Stasis dermatitis of both legs Problem: Chronic (17) Unresolved grief Problem: Chronic (18) Venous (peripheral) insufficiency Problem: Chronic (19) Weakness of both lower limbs Problem: Chronic (20) Diarrhea Problem: Acute (21) Autonomic neuropathy Problem: Acute (22) Right knee pain Problem: Acute (23) Osteoarthritis Problem: Acute (24) Osteoarthritis Problem: Chronic Qualifiers: Osteoarthritis location: knee Osteoarthritis type: primary
[2016-08-18] MEDS: FLUTICASONE/SALMETEROL 14 PUFF DISK.W.DEV IH SCH ×2 (08:31→20:45)
[2016-08-18] MEDS: TIOTROPIUM BROMIDE 5 CAP INHALER IH SCH (08:32)
[2016-08-18] MEDS: MULTIVITAMINS 1 CAP CAPSULE PO SCH (08:33)
[2016-08-18] MEDS: POTASSIUM CHLORIDE 10 MEQ TABLET.SA PO SCH (08:33)
[2016-08-18] MEDS: METOPROLOL TARTRATE 50 MG TABLET PO SCH ×2 (08:33→20:46)
[2016-08-18] MEDS: DULoxetine HCL 30 MG CAPSULE.SA PO SCH (08:33)
[2016-08-18] MEDS: ENALAPRIL MALEATE 20 MG TABLET PO SCH ×2 (08:34→20:48)
[2016-08-18] MEDS: amLODIPine BESYLATE 10 MG TABLET PO SCH (08:34)
[2016-08-18] MEDS: MELOXICAM 15 MG TABLET PO SCH (08:34)
[2016-08-18] MEDS: NYSTATIN 15 APPL BTL TP SCH ×2 (08:35→20:49)
[2016-08-18] MEDS: CALCIUM POLYCARBOPHIL 625 MG TABLET PO SCH ×4 (09:09→20:46)
[2016-08-18] MEDS: MINOXIDIL 2.5 MG TABLET PO SCH (09:10)
[2016-08-18] MEDS: clonazePAM 0.5 MG TABLET PO SCH (20:46)
[2016-08-18] MEDS: NICOTINE 21 MG PATC TD SCH (20:47)
[2016-08-18] MEDS: MONTELUKAST SODIUM 10 MG TABLET PO SCH (20:47)
[2016-08-19] MEDS: ALBUTEROL SULFATE 2.5 MG/3 ML VIAL.NEB IH SCH (06:04)
[2016-08-19] MEDS: PANTOPRAZOLE SODIUM 20 MG TABLET.DR PO SCH (07:15)
[2016-08-19] MEDS: hydrALAZINE HCL 50 MG TABLET PO SCH (07:15)
[2016-08-19] MEDS: glipiZIDE 5 MG TABLET PO SCH (07:15)
[2016-08-19] MEDS: TIOTROPIUM BROMIDE 5 CAP INHALER IH SCH (10:07)
[2016-08-19] MEDS: FLUTICASONE/SALMETEROL 14 PUFF DISK.W.DEV IH SCH (10:07)
[2016-08-19] MEDS: HYDROcodone/ACETAMINOPHEN 1 EACH TABLET PO PRN (10:12)
[2016-08-19] MEDS: DULoxetine HCL 30 MG CAPSULE.SA PO SCH (10:12)
[2016-08-19] MEDS: MINOXIDIL 2.5 MG TABLET PO SCH (10:13)
[2016-08-19] MEDS: CALCIUM POLYCARBOPHIL 625 MG TABLET PO SCH (10:13)
[2016-08-19] MEDS: amLODIPine BESYLATE 10 MG TABLET PO SCH (10:13)
[2016-08-19] MEDS: POTASSIUM CHLORIDE 10 MEQ TABLET.SA PO SCH (10:15)
[2016-08-19] MEDS: MULTIVITAMINS 1 CAP CAPSULE PO SCH (10:15)
[2016-08-19 10:16] VITALS: BP 147/75
[2016-08-19] MEDS: METOPROLOL TARTRATE 50 MG TABLET PO SCH (10:16)
[2016-08-19] MEDS: MELOXICAM 15 MG TABLET PO SCH (10:16)
[2016-08-19] MEDS: ENALAPRIL MALEATE 20 MG TABLET PO SCH (10:16)
[2016-08-19] MEDS: NYSTATIN 15 APPL BTL TP SCH (10:18)
--- NOTE | 2016-08-19 10:58 | DS ---
(1) Chronic pain associated with significant psychosocial dysfunction Problem: Acute Description of Stay: ADMISSION DATE: 07/28/2016 DISCHARGE DATE: 08/19/[address] Gregory: This a 65 y/o mad who had just signed out ama from from our hospital. He had refused to go to a longterm, following a fall at home, and inability to get up. He had remained on the floor 6-8 hours. Last night he fell three times, and returns to our hospital today by ambulance. Last time he had right leg pain , which persists, but is improving. HOSPITAL COURSE: The patient was admitted for recurrent falls and intractable pain. His hospital stay was uneventful but was impacted by multiple social and psychological issues. The patient was discharged home in stable condition and arrangements for home health care were made prior to discharge. FOLLOW-UP APPOINTMENTS: -PCP, Dr. Gregory, within 1 month -Psychiatrist, Dr. Castellanos, in 2 weeks RADIOLOGY REPORTS: Knee x-ray on 08/17/2016 showed: No acute findings. Right knee osteoarthritis. Procedures Performed: none Discharge Disposition: Home self care - Home with [facility] Disposition: Home self-care Condition: Stable Discharge Activity: Activity as tolerated Discharge Diet: Other - Lactose and fructose free diet Problem Oriented Discharge Instructions to Patient/Family: Weakness, Easy-to- Read Additional Patient Instructions (free text): [facility] at discharge, please call and fax them discharge information. Please arrange a [facility] outpt in 2 weeks - please come prior to your follow up appointment with Dr. Castellanos in 2 weeks for lab work. Outpt appt with Dr. Castellanos in 2 weeks - we will call you on Sunday with follow up appointment time. Outpt appt. with Dr Gregory in 4 weeks - SundaySeptember 18 at 8:45 am. Prescriptions (Any new or edited meds): Calcium Polycarbophil [Fibercon] 625 mg PO QID #120 tablet DULoxetine HCL [Cymbalta] 60 mg PO DAILY #60 capsule.sa Enalapril Maleate [Vasotec] 20 mg PO BID #60 tablet Minoxidil 2.5 mg PO DAILY #30 tablet Multivitamins [Multivitamin Katherin] 1 cap PO DAILY #30 capsule amLODIPine BESYLATE [Norvasc] 10 mg PO DAILY #30 tablet clonazePAM [Klonopin] 0.5 mg PO HS #30 tablet glipiZIDE [Glucotrol] 2.5 mg PO BIDAC #30 tablet hydrALAZINE HCL [Apresoline] 50 mg PO TID@0700,1400,2100 #90 tablet Complete Home Medications List: Complete Home Medication List: Budesonide/Formoterol Fumarate [Symbicort 160-4.5 Mcg Inhaler] 2 puff IH BID #0 05/13/14 Metoprolol Tartrate [Lopressor] 50 mg PO BID #0 05/13/14 Tiotropium [place] [Spiriva] 1 cap IH DAILY #0 05/13/14 Meloxicam [Mobic] 15 mg PO DAILY 07/04/16 Omeprazole 20 mg PO DAILY 07/04/16 Potassium Chloride [Klor-Con M10] 10 meq PO DAILY 07/04/16 Albuterol Sulfate [Albuterol Sulfate 2.5 MG/3 ML] 2.5 mg IH TID 07/25/16 Montelukast Sodium [Singulair] 10 mg PO HS 07/25/16 Nystatin [Nystop] 1 appl TP BID #60 gm 07/26/16 Calcium Polycarbophil [Fibercon] 625 mg PO QID #120 tablet 08/19/16 DULoxetine HCL [Cymbalta] 60 mg PO DAILY #60 capsule.sa 08/19/16 Enalapril Maleate [Vasotec] 20 mg PO BID #60 tablet 08/19/16 HYDROcodone/ACETAMINOPHEN [[place] 5-325] 1 each PO QID PRN #0 tablet 08/19/16 Minoxidil 2.5 mg PO DAILY #30 tablet 08/19/16 Multivitamins [Multivitamin Katherin] 1 cap PO DAILY #30 capsule 08/19/16 amLODIPine BESYLATE [Norvasc] 10 mg PO DAILY #30 tablet 08/19/16 clonazePAM [Klonopin] 0.5 mg PO HS #30 tablet 08/19/16 glipiZIDE [Glucotrol] 2.5 mg PO BIDAC #30 tablet 08/19/16 hydrALAZINE HCL [Apresoline] 50 mg PO TID@0700,1400,2100 #90 tablet 08/19/16 Amb Orders for Discharge: Basic Metabolic Panel Time Frame: 2 Weeks, Facility: [facility] , Location: Home Health Care
== END 2016-08-19 13:25 | disposition home or self-care (01) ==
LOC: ER 08:13 → MS 11:05
PROVIDERS: ADMIT Allergy & Immunology; ATTEND Allergy & Immunology
DX: M79.669 Pain in unspecified lower leg (principal); M79.2 Neuralgia and neuritis, unspecified; I10 Essential (primary) hypertension; E11.9 Type 2 diabetes mellitus without complications; F41.8 Other specified anxiety disorders; M19.90 Unspecified osteoarthritis, unspecified site; J44.9 Chronic obstructive pulmonary disease, unspecified; F17.210 Nicotine dependence, cigarettes, uncomplicated; L89.92 Pressure ulcer of unspecified site, stage 2; Z91.81 History of falling; J96.10 Chronic respiratory failure, unspecified whether with hypoxia or hypercapnia; E78.5 Hyperlipidemia, unspecified; E66.2 Morbid (severe) obesity with alveolar hypoventilation; I87.2 Venous insufficiency (chronic) (peripheral); F31.9 Bipolar disorder, unspecified; F43.10 Post-traumatic stress disorder, unspecified
CPT/HCPCS: 36415; 73562; 80048; 80053; 82784; 83520; 85025; 87045; 87046; 87493; 94640; 97110; 97116; 97162; 97164; 97165; 97530; 97535; 97542; 99282; G0378; G8978; G8979; G8980; G8987; G8988; G8989

== ENCOUNTER 2016-11-22 20:45 | Emergency (ER) | payer MEDICARE, OTHER ==
[2016-11-22 21:20] LABS: Hematocrit 47.1 % (42.0-52.0); Hemoglobin 14.6 gm/dL (13.5-18.0); Mean Cell Volume 89.9 fl (78-100); Mean Corpuscular Hemoglobin 27.9 pg (27-31); Mean Platelet Volume 9.2 fl (6.0-9.5); Neutrophil # 7.8 K/mm3 (1.3-6.0); Neutrophil % 72.1 % (42-75.0); Platelet Count 285 K/mm3 (150-450); Red Blood Count 5.24 M/mm3 (4.7-6.0); Red Cell Distribution Width 14.9 % (11.5-14.0); White Blood Count 10.8 K/mm3 (4.0-10.5)
[2016-11-22] MEDS ORDERED: ALBUTEROL SULFATE/IPRATROPIUM 3 ML NEBU IH ONE ×2 (21:22→21:26)
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
[2016-11-22 21:37] LABS: Albumin * 3.1 gm/dl (3.4-5.0); Anion Gap 10.6 mmol/L (6.8-13.8); BUN/Creatinine Ratio 12.5 (9.0-21.6); Bilirubin, Total 0.3 mg/dL (0.0-1.1); Ca. Corrected For Albumin 9.2 mg/dL (8.4-10.2); Calcium * 8.8 mg/dL (7.9-10.9); Potassium 3.6 mmol/L (3.4-4.6)
[2016-11-22 21:38] LABS: Troponin I 0.357 ng/ml (0.00-0.10)
[2016-11-22] MEDS: NITROGLYCERIN 0.4 MG/TAB BTL SL PRN ×3 (21:56→22:06)
[2016-11-22] MEDS ORDERED: ASPIRIN 81 MG TAB.CHEW PO ONE (22:34)
[2016-11-22] MEDS ORDERED: ASPIRIN 81 MG TAB.CHEW ONE (22:39)
[2016-11-22 22:43] VITALS: BP 143/77
== END 2016-11-22 23:00 | disposition short-term general hospital (02) ==
LOC: ER 20:45
DX: I21.4 Non-ST elevation (NSTEMI) myocardial infarction (principal); J44.1 Chronic obstructive pulmonary disease with (acute) exacerbation; E11.9 Type 2 diabetes mellitus without complications; I10 Essential (primary) hypertension; F41.9 Anxiety disorder, unspecified; F32.9 Major depressive disorder, single episode, unspecified; F17.200 Nicotine dependence, unspecified, uncomplicated

== ENCOUNTER 2017-01-15 11:08 | Inpatient (IN) | payer MEDICARE, MEDICAID ==
[2017-01-15] MEDS ORDERED: NORMAL SALINE 1,000 ML IV ONE (11:36)
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
[2017-01-15 12:00] LABS: Hematocrit 50.8 % (42.0-52.0); Hemoglobin 15.9 gm/dL (13.5-18.0); Mean Corpuscular Hemoglobin 27.8 pg (27-31); Mean Corpuscular Hgb Conc 31.3 g/dl (32-36); Mean Platelet Volume 10.3 fl (6.0-9.5); Platelet Count 285 K/mm3 (150-450); Red Blood Count 5.71 M/mm3 (4.7-6.0); Red Cell Distribution Width 18.8 % (11.5-14.0); White Blood Count 24.7 K/mm3 (4.0-10.5)
[2017-01-15 12:03] LABS: Total Cells Counted 100
[2017-01-15 12:14] LABS: Band 5 % (0-2.0); Eosinophil 2 % (0-3); Lymphocyte 5 % (20-51); Neutrophil 88 % (42-75); Neutrophil # 21.7 K/mm3 (1.3-6.0)
[2017-01-15 12:15] LABS: Platelet Estimate Normal (NORMAL); RBC Morphology Normal (NORMAL)
[2017-01-15 12:23] LABS: Albumin * 3.1 gm/dl (3.4-5.0); Anion Gap 14.7 mmol/L (6.8-13.8); BUN/Creatinine Ratio 29.9 (9.0-21.6); Bilirubin, Total 0.6 mg/dL (0.0-1.1); Ca. Corrected For Albumin 9.4 mg/dL (8.4-10.2); Carbon Dioxide 28.3 mmol/L (24-32.6); TSH * 1.644 uIU/mL (0.358-3.74); Troponin I 0.043 ng/ml (0.00-0.10)
[2017-01-15] MEDS: NORMAL SALINE 1,000 ML IV PRN ×2 (13:07→19:20)
[2017-01-15] MEDS ORDERED: PIPERACILLIN SODIUM/TAZOBACTAM 3.375 GM in DEXTROSE 5 % IN WATER 100 ML IV ONE ×2 (14:51)
[2017-01-15] MEDS ORDERED: PIPERACILLIN SODIUM/TAZOBACTAM 3.375 GM in NORMAL SALINE 100 ML IV ONE (15:00)
[2017-01-15 17:54] LABS: Urine Bilirubin Negative (NEGATIVE); Urine Blood 250 /ul (NEGATIVE); Urine Ketone Negative (NEGATIVE); Urine Nitrite Negative (NEGATIVE); Urine Protein Negative (NEGATIVE); Urine Urobilinogen Normal (NORMAL); Urine pH 5.5 pH (5.0-7.0)
[2017-01-15 18:06] LABS: Urine Amorphous Sediment Few - 1+ (NONE-FEW); Urine Appearance Clear; Urine Bacteria 1+; Urine Color Dark Yellow; Urine RBC 25-50 /hpf (0-5); Urine WBC None Seen /hpf (0-5)
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
[2017-01-15 20:06] LABS: Cocaine Ur Negative (NEGATIVE); Urine Barbiturate Negative (NEGATIVE); Urine Benzodiazepines Negative (NEGATIVE); Urine Opiates Positive (NEGATIVE); Urine PCP Negative (NEGATIVE); Urine THC Positive (NEGATIVE)
[2017-01-15 20:12] LABS: Hematocrit 43.5 % (42.0-52.0); Hemoglobin 13.5 gm/dL (13.5-18.0); Mean Cell Volume 88.6 fl (78-100); Mean Corpuscular Hemoglobin 27.5 pg (27-31); Mean Platelet Volume 10.1 fl (6.0-9.5); Neutrophil # 17.3 K/mm3 (1.3-6.0); Neutrophil % 87.1 % (42-75.0); Platelet Count 238 K/mm3 (150-450); Red Blood Count 4.91 M/mm3 (4.7-6.0); Red Cell Distribution Width 18.3 % (11.5-14.0); White Blood Count 19.9 K/mm3 (4.0-10.5)
[2017-01-15 20:29] LABS: Albumin * 2.5 gm/dl (3.4-5.0); Anion Gap 12.1 mmol/L (6.8-13.8); BUN/Creatinine Ratio 36.8 (9.0-21.6); Bilirubin, Total 0.5 mg/dL (0.0-1.1); Ca. Corrected For Albumin 9.2 mg/dL (8.4-10.2); Calcium * 8.3 mg/dL (7.9-10.9); Carbon Dioxide 26.3 mmol/L (24-32.6); Potassium 4.4 mmol/L (3.4-4.6); Total Protein 5.8 gm/dL (6.2-8.2)
[2017-01-15] MEDS: AZITHROMYCIN 500 MG in DEXTROSE 5 % IN WATER 250 ML IV SCH ×2 (20:29)
[2017-01-15 20:34] LABS: Troponin I 0.148 ng/ml (0.00-0.10)
[2017-01-15] MEDS ORDERED: POTASSIUM CHLORIDE 10 MEQ TABLET.SA PO SCH (21:00)
[2017-01-15] MEDS: 0.5 NORMAL SALINE 1,000 ML IV PRN (21:37)
[2017-01-15] MEDS: ENALAPRIL MALEATE 20 MG TABLET PO SCH (21:47)
[2017-01-15] MEDS: FLUTICASONE/SALMETEROL 14 PUFF DISK.W.DEV IH SCH (21:47)
[2017-01-15] MEDS: MONTELUKAST SODIUM 10 MG TABLET PO SCH (21:47)
[2017-01-15] MEDS: FUROSEMIDE 80 MG TABLET PO SCH (21:47)
[2017-01-15] MEDS: hydrALAZINE HCL 50 MG TABLET PO SCH (21:47)
[2017-01-15] MEDS: CLOPIDOGREL BISULFATE 75 MG TABLET PO SCH (21:47)
[2017-01-15] MEDS: ATORVASTATIN CALCIUM 40 MG TABLET PO SCH (21:47)
[2017-01-15] MEDS: METOPROLOL TARTRATE 50 MG TABLET PO SCH (21:47)
[2017-01-15] MEDS: NYSTATIN 15 APPL BTL TP SCH (22:09)
[2017-01-15] MEDS ORDERED: ALBUTEROL SULFATE 2.5 MG/0.5 ML VIAL.NEB IH ONE (23:12)
[2017-01-15] MEDS: ALBUTEROL SULFATE 2.5 MG/3 ML VIAL.NEB IH SCH (23:14)
[2017-01-16] MEDS: PIPERACILLIN SODIUM/TAZOBACTAM 3.375 GM in DEXTROSE 5 % IN WATER 100 ML IV SCH ×8 (00:37→23:46)
[2017-01-16 04:32] LABS: Hematocrit 40.3 % (42.0-52.0); Hemoglobin 12.6 gm/dL (13.5-18.0); Mean Cell Volume 88.2 fl (78-100); Mean Corpuscular Hemoglobin 27.6 pg (27-31); Mean Corpuscular Hgb Conc 31.3 g/dl (32-36); Mean Platelet Volume 10.1 fl (6.0-9.5); Neutrophil # 11.4 K/mm3 (1.3-6.0); Neutrophil % 81.8 % (42-75.0); Platelet Count 218 K/mm3 (150-450); Red Blood Count 4.57 M/mm3 (4.7-6.0); Red Cell Distribution Width 18.2 % (11.5-14.0); White Blood Count 13.9 K/mm3 (4.0-10.5)
[2017-01-16 04:44] LABS: Albumin * 2.4 gm/dl (3.4-5.0); Anion Gap 12.1 mmol/L (6.8-13.8); BUN/Creatinine Ratio 33.7 (9.0-21.6); Bilirubin, Total 0.6 mg/dL (0.0-1.1); Ca. Corrected For Albumin 9.3 mg/dL (8.4-10.2); Calcium * 8.3 mg/dL (7.9-10.9); Carbon Dioxide 27.7 mmol/L (24-32.6); Potassium 3.8 mmol/L (3.4-4.6); Total Protein 5.6 gm/dL (6.2-8.2)
[2017-01-16] MEDS: ALBUTEROL SULFATE 2.5 MG/3 ML VIAL.NEB IH SCH (06:07)
[2017-01-16] MEDS ORDERED: PANTOPRAZOLE SODIUM 40 MG in NORMAL SALINE 100 ML IV SCH (06:15)
[2017-01-16] MEDS: ALBUTEROL SULFATE 2.5 MG/0.5 ML VIAL.NEB IH SCH ×3 (06:33→18:05)
[2017-01-16] MEDS: hydrALAZINE HCL 50 MG TABLET PO SCH ×3 (07:32→20:15)
[2017-01-16] MEDS: PANTOPRAZOLE SODIUM 20 MG TABLET.DR PO SCH (07:33)
[2017-01-16] MEDS: ASPIRIN 325 MG TABLET.DR PO SCH (08:01)
[2017-01-16] MEDS: POTASSIUM CHLORIDE 20 MEQ TABLET.SA PO SCH ×2 (08:02→20:15)
[2017-01-16] MEDS: FUROSEMIDE 80 MG TABLET PO SCH ×2 (08:03→20:16)
[2017-01-16] MEDS: METOPROLOL TARTRATE 50 MG TABLET PO SCH ×2 (08:04→20:22)
[2017-01-16] MEDS: MELOXICAM 15 MG TABLET PO SCH (08:05)
[2017-01-16] MEDS: MULTIVITAMINS 1 CAP CAPSULE PO SCH (08:06)
[2017-01-16] MEDS: GABAPENTIN 400 MG CAPSULE PO SCH ×3 (08:07→16:00)
[2017-01-16] MEDS: TIOTROPIUM BROMIDE 5 CAP INHALER IH SCH (08:07)
[2017-01-16] MEDS: ZINC SULFATE 220 MG CAPSULE PO SCH (08:08)
[2017-01-16] MEDS: ENALAPRIL MALEATE 20 MG TABLET PO SCH ×2 (08:08→20:18)
[2017-01-16] MEDS: FLUTICASONE/SALMETEROL 14 PUFF DISK.W.DEV IH SCH ×2 (08:08→20:19)
[2017-01-16] MEDS: ASCORBIC ACID 500 MG TABLET PO SCH (08:08)
[2017-01-16] MEDS: NYSTATIN 15 APPL BTL TP SCH ×2 (08:10→20:18)
[2017-01-16] MEDS: 0.5 NORMAL SALINE 1,000 ML IV PRN ×3 (08:31→23:47)
--- NOTE | 2017-01-16 08:51 | PN ---
Subjective - Date and Time Seen Date: 01/16/17 Time: 08:42 Subjective Narrative: Patient on recliner. AAO X 3. WBC is down to 13 from 23. Objective - Review of Systems Generalized/Overall Review: Denies: Chills, Fever Respiratory: Reports: Cough. Denies: Shortness of Breath Cardiac: Denies: Chest Pain, Palpitations Abdominal: Reports: Diarrhea. Denies: Nausea, Vomiting, Abdominal Pain Genitourinary Symptoms: Denies: Urgency, Frequency - Vitals Vitals: Last Vital Signs Temp 36.9 C 01/16/17 06:29 Pulse 91 01/16/17 08:11 Resp 14 01/16/17 06:29 BP 152/70 01/16/17 08:11 Pulse Ox 97 01/16/17 06:29 - Abnormal Lab Findings Abnormal Lab Findings: Abnormal Lab Results 01/15/17 01/15/17 01/15/17 Range/Units 19:50 20:05 20:05 WBC 19.9 H (4.0-10.5) K/mm3 RBC (4.7-6.0) M/mm3 Hgb (13.5-18.0) gm/dL Hct (42.0-52.0) % MCHC 31.0 L (32-36) g/dl RDW 18.3 H (11.5-14.0) % MPV 10.1 H (6.0-9.5) fl Immature Gran % (Auto) 0.70 H (0.001-0.429) % Immature Gran # (Auto) 0.14 H (0.000-0.0310) K/mm3 Neutrophils % 87.1 H (42-75.0) % Lymphocytes % 7.4 L (20-51) % Neutrophils # 17.3 H (1.3-6.0) K/mm3 ESR (0-10) mm/hr pO2 78.7 L (83.0-108.0) mmHg Base Excess -2.9 L (-2.0-3.0) mmol/L Sodium 143 H (132-142) mmol/L Plasma Sodium 144 H (130-142) mmol/L Chloride 109 H (97-106) mmol/L BUN 43 H (6-23) mg/dL BUN/Creatinine Ratio 36.8 H (9.0-21.6) Random Glucose 135 H (70-110) mg/dL ALT 16 L (19-67) U/L Troponin I 0.148 H* (0.00-0.10) ng/ml C-Reactive Prot, Quant (0.0-0.9) mg/dL B-Natriuretic Peptide (5-175) pg/mL Total Protein 5.8 L (6.2-8.2) gm/dL Albumin 2.5 L (3.4-5.0) gm/dl Procalcitonin (0.05-0.50) ng/mL Stool Occult Blood 01/15/17 01/15/17 01/15/17 Range/Units 20:05 20:05 20:05 WBC (4.0-10.5) K/mm3 RBC (4.7-6.0) M/mm3 Hgb (13.5-18.0) gm/dL Hct (42.0-52.0) % MCHC (32-36) g/dl RDW (11.5-14.0) % MPV (6.0-9.5) fl Immature Gran % (Auto) (0.001-0.429) % Immature Gran # (Auto) (0.000-0.0310) K/mm3 Neutrophils % (42-75.0) % Lymphocytes % (20-51) % Neutrophils # (1.3-6.0) K/mm3 ESR (0-10) mm/hr pO2 (83.0-108.0) mmHg Base Excess (-2.0-3.0) mmol/L Sodium (132-142) mmol/L Plasma Sodium (130-142) mmol/L Chloride (97-106) mmol/L BUN (6-23) mg/dL BUN/Creatinine Ratio (9.0-21.6) Random Glucose (70-110) mg/dL ALT (19-67) U/L Troponin I (0.00-0.10) ng/ml C-Reactive Prot, Quant 10.4 H (0.0-0.9) mg/dL B-Natriuretic Peptide 563 H (5-175) pg/mL Total Protein (6.2-8.2) gm/dL Albumin (3.4-5.0) gm/dl Procalcitonin 1.99 H (0.05-0.50) ng/mL Stool Occult Blood 01/15/17 01/16/17 01/16/17 Range/Units 21:18 01:40 04:25 WBC (4.0-10.5) K/mm3 RBC (4.7-6.0) M/mm3 Hgb (13.5-18.0) gm/dL Hct (42.0-52.0) % MCHC (32-36) g/dl RDW (11.5-14.0) % MPV (6.0-9.5) fl Immature Gran % (Auto) (0.001-0.429) % Immature Gran # (Auto) (0.000-0.0310) K/mm3 Neutrophils % (42-75.0) % Lymphocytes % (20-51) % Neutrophils # (1.3-6.0) K/mm3 ESR 19 H (0-10) mm/hr pO2 (83.0-108.0) mmHg Base Excess (-2.0-3.0) mmol/L Sodium 145 H (132-142) mmol/L Plasma Sodium 145 H (130-142) mmol/L Chloride 109 H (97-106) mmol/L BUN 33 H (6-23) mg/dL BUN/Creatinine Ratio 33.7 H (9.0-21.6) Random Glucose (70-110) mg/dL ALT 18 L (19-67) U/L Troponin I (0.00-0.10) ng/ml C-Reactive Prot, Quant (0.0-0.9) mg/dL B-Natriuretic Peptide (5-175) pg/mL Total Protein 5.6 L (6.2-8.2) gm/dL Albumin 2.4 L (3.4-5.0) gm/dl Procalcitonin (0.05-0.50) ng/mL Stool Occult Blood Positive H 01/16/17 Range/Units 04:25 WBC 13.9 H D (4.0-10.5) K/mm3 RBC 4.57 L (4.7-6.0) M/mm3 Hgb 12.6 L (13.5-18.0) gm/dL Hct 40.3 L (42.0-52.0) % MCHC 31.3 L (32-36) g/dl RDW 18.2 H (11.5-14.0) % MPV 10.1 H (6.0-9.5) fl Immature Gran % (Auto) 0.70 H (0.001-0.429) % Immature Gran # (Auto) 0.10 H (0.000-0.0310) K/mm3 Neutrophils % 81.8 H (42-75.0) % Lymphocytes % 11.3 L (20-51) % Neutrophils # 11.4 H (1.3-6.0) K/mm3 ESR (0-10) mm/hr pO2 (83.0-108.0) mmHg Base Excess (-2.0-3.0) mmol/L Sodium (132-142) mmol/L Plasma Sodium (130-142) mmol/L Chloride (97-106) mmol/L BUN (6-23) mg/dL BUN/Creatinine Ratio (9.0-21.6) Random Glucose (70-110) mg/dL ALT (19-67) U/L Troponin I (0.00-0.10) ng/ml C-Reactive Prot, Quant (0.0-0.9) mg/dL B-Natriuretic Peptide (5-175) pg/mL Total Protein (6.2-8.2) gm/dL Albumin (3.4-5.0) gm/dl Procalcitonin (0.05-0.50) ng/mL Stool Occult Blood - Exam Constitutional: Present: Alert, Oriented x3, Cooperative ENT Exam: Present: hearing grossly normal Neck: Present: supple Respiratory: Present: decreased breath sounds. Absent: No rales, No wheezing Cardiovascular/Chest: Present: regular rate, rhythm, no JVD, no murmur Abdomen: Present: nontender, nondistended, obese, hypoactive Extremity: Present: no calf tenderness, lower extremity edema Assessment/Plan - Problems/Diagnosis (1) Colitis Problem: Acute Narrative: infectious vs inflammatory vs vascular. likely infectious. will get stool culture and C. Diff. Unlikely CDiff as his WBC responded to IV Zosyn. Positive occult bloodp- due to colitis vs GIB.. (2) Pneumonia Problem: Suspected Qualifiers: Pneumonia type: due to unspecified organism Lung location: lower lobe of lung Narrative: new vs old scar of his recent pneumonia. continue with IV antibiotics. (3) Altered mental status Problem: Acute Qualifiers: Altered mental status type: somnolence Qualified Code(s): R40.0 - Somnolence (4) Sepsis Problem: Acute Qualifiers: Sepsis type: sepsis due to unspecified organism Qualified Code(s): A41.9 - Sepsis, unspecified organism Narrative: R/O Sepsis . Lactic acidosis resolved. AMS resolved. (5) COPD (chronic obstructive pulmonary disease) Problem: Chronic Qualifiers: COPD type: unspecified COPD Qualified Code(s): J44.9 - Chronic obstructive pulmonary disease, unspecified (6) Diarrhea Problem: Acute
[2017-01-16] MEDS ORDERED: amLODIPine BESYLATE 10 MG TABLET PO SCH (09:00)
[2017-01-16] MEDS ORDERED: GABAPENTIN 300 MG CAPSULE PO SCH (09:00)
[2017-01-16] MEDS: NICOTINE 21 MG PATC TD SCH (13:14)
[2017-01-16] MEDS: LOPERAMIDE HCL 2 MG CAPSULE PO PRN ×2 (17:43→21:58)
[2017-01-16] MEDS: ATORVASTATIN CALCIUM 40 MG TABLET PO SCH (20:16)
[2017-01-16] MEDS: CLOPIDOGREL BISULFATE 75 MG TABLET PO SCH (20:17)
[2017-01-16] MEDS: MONTELUKAST SODIUM 10 MG TABLET PO SCH (20:19)
[2017-01-16] MEDS: AZITHROMYCIN 500 MG in DEXTROSE 5 % IN WATER 250 ML IV SCH ×2 (20:20)
[2017-01-17] MEDS: HYDROcodone/ACETAMINOPHEN 1 EACH TABLET PO PRN ×3 (03:19→22:32)
[2017-01-17] MEDS: ALBUTEROL SULFATE 2.5 MG/0.5 ML VIAL.NEB IH SCH ×3 (06:03→18:33)
[2017-01-17 06:04] LABS: Hematocrit 36.6 % (42.0-52.0); Hemoglobin 11.7 gm/dL (13.5-18.0); Mean Cell Volume 86.5 fl (78-100); Mean Corpuscular Hemoglobin 27.7 pg (27-31); Mean Platelet Volume 10.5 fl (6.0-9.5); Neutrophil # 9.3 K/mm3 (1.3-6.0); Neutrophil % 78.1 % (42-75.0); Platelet Count 188 K/mm3 (150-450); Red Blood Count 4.23 M/mm3 (4.7-6.0); Red Cell Distribution Width 17.7 % (11.5-14.0); White Blood Count 11.9 K/mm3 (4.0-10.5)
[2017-01-17 06:19] LABS: Anion Gap 11.1 mmol/L (6.8-13.8); BUN/Creatinine Ratio 24.4 (9.0-21.6); Calcium * 8.3 mg/dL (7.9-10.9); Carbon Dioxide 29.1 mmol/L (24-32.6); Estimated Creat Clear 99.9; Potassium 3.2 mmol/L (3.4-4.6)
--- NOTE | 2017-01-17 06:20 | PN ---
Subjective - Date and Time Seen Date: 01/17/17 Time: 06:10 Subjective Narrative: Patient seen today in bed AOX3 no acute distress. pt stated he used imodium last night and no reports of diarrhea. he denies chills, fever and still have a cough since he was diagnosed with pneumonia last month. he said the swelling in his legs are about the same and anticipating discharge soon. Objective - Review of Systems Generalized/Overall Review: Reports: No Symptoms Reported EENTM: Reports: No Symptoms Reported Respiratory: Reports: Cough Cardiac: Reports: No Symptoms Reported Abdominal: Reports: No Symptoms Reported Genitourinary Symptoms: Reports: No Symptoms Reported Musculoskeletal Complaints: Reports: No Symptoms Reported Neurological: Reports: No Symptoms Reported Skin: Reports: Dryness, Other - BLE erythema Endocrine: Reports: No Symptoms Reported - Vitals Vitals: Last Vital Signs Temp 36.8 C 01/17/17 03:18 Pulse 78 01/17/17 06:03 Resp 18 01/17/17 06:03 BP 147/58 01/17/17 03:18 Pulse Ox 93 01/17/17 06:03 - Exam Constitutional: Present: Alert, Oriented x3, Cooperative, Morbidly obese ENT Exam: Present: hearing grossly normal Neck: Present: full range of motion Breasts: Present: Exam deferred Respiratory: Present: chest non-tender, decreased breath sounds, crackles, rhonchi Cardiovascular/Chest: Present: normal peripheral pulses, edema Abdomen: Present: Normal bowel sounds, soft, nontender, nondistended, obese /Rectal: Present: Exam deferred Extremity: Present: normal range of motion, non-tender, no calf tenderness, lower extremity edema, slow capillary refill Skin Exam: Present: warm/dry Neurologic: Present: oriented x 3 Appearance: Present: appropriate appearance Eye contact: Present: cooperative Thoughts: Present: normal thought pattern Assessment/Plan Plan Narrative: (1) Colitis Problem: Acute Narrative: infectious vs inflammatory vs vascular. likely infectious. will get stool culture pending. Unlikely CDiff as his WBC responded to IV Zosyn. Positive occult blood- due to colitis vs GIB.. (2) Pneumonia Problem: Suspected Qualifiers: Pneumonia type: due to unspecified organism Lung location: lower lobe of lung Narrative: new vs old scar of his recent pneumonia. continue with IV antibiotics. Continue with IV antbx and fluids as pt responding well. CBC gradually improving (3) Sepsis Problem: Acute Qualifiers: Sepsis type: sepsis due to unspecified organism Qualified Code(s): A41.9 - Sepsis, unspecified organism Narrative: R/O Sepsis . Lactic acidosis resolved. AMS resolved. (4) COPD (chronic obstructive pulmonary disease) Problem: Chronic Qualifiers: COPD type: unspecified COPD Qualified Code(s): J44.9 - Chronic obstructive pulmonary disease, unspecified (5) Diarrhea- resolving Problem: Acute (6) Altered mental status- resolved Problem: Acute Qualifiers: Altered mental status type: somnolence Qualified Code(s): R40.0 - Somnolence - Problems/Diagnosis (1) Altered mental status Problem: Acute Qualifiers: Altered mental status type: somnolence Qualified Code(s): R40.0 - Somnolence (2) Colitis Problem: Acute (3) Sepsis Problem: Suspected Qualifiers: Sepsis type: sepsis due to unspecified organism Qualified Code(s): A41.9 - Sepsis, unspecified organism (4) COPD (chronic obstructive pulmonary disease) Problem: Chronic Qualifiers: COPD type: unspecified COPD Qualified Code(s): J44.9 - Chronic obstructive pulmonary disease, unspecified (5) Pneumonia Problem: Suspected Qualifiers: Pneumonia type: due to unspecified organism Lung location: lower lobe of lung (6) Hypertension Problem: Chronic (7) Stasis dermatitis of both legs Problem: Chronic
[2017-01-17] MEDS: PANTOPRAZOLE SODIUM 20 MG TABLET.DR PO SCH (06:43)
[2017-01-17] MEDS: hydrALAZINE HCL 50 MG TABLET PO SCH ×3 (06:43→21:16)
[2017-01-17] MEDS: 0.5 NORMAL SALINE 1,000 ML IV PRN (06:52)
[2017-01-17] MEDS: POTASSIUM CHLORIDE 40 MEQ in 0.5 NORMAL SALINE 1,000 ML IV SCH ×2 (09:43→16:31)
[2017-01-17] MEDS: PIPERACILLIN SODIUM/TAZOBACTAM 3.375 GM in DEXTROSE 5 % IN WATER 100 ML IV SCH ×2 (09:43)
[2017-01-17] MEDS: POTASSIUM CHLORIDE 20 MEQ TABLET.SA PO SCH ×2 (09:44→21:14)
[2017-01-17] MEDS: ENALAPRIL MALEATE 20 MG TABLET PO SCH ×2 (09:44→21:18)
[2017-01-17] MEDS: ASPIRIN 325 MG TABLET.DR PO SCH (09:44)
[2017-01-17] MEDS: MELOXICAM 15 MG TABLET PO SCH (09:44)
[2017-01-17] MEDS: FLUTICASONE/SALMETEROL 14 PUFF DISK.W.DEV IH SCH ×2 (09:44→21:14)
[2017-01-17] MEDS: ZINC SULFATE 220 MG CAPSULE PO SCH (09:45)
[2017-01-17] MEDS: FUROSEMIDE 80 MG TABLET PO SCH ×2 (09:45→21:15)
[2017-01-17] MEDS: GABAPENTIN 400 MG CAPSULE PO SCH ×3 (09:45→16:31)
[2017-01-17] MEDS: amLODIPine BESYLATE 5 MG TABLET PO SCH (09:46)
[2017-01-17] MEDS: MULTIVITAMINS 1 CAP CAPSULE PO SCH (09:46)
[2017-01-17] MEDS: TIOTROPIUM BROMIDE 5 CAP INHALER IH SCH (09:46)
[2017-01-17] MEDS: ASCORBIC ACID 500 MG TABLET PO SCH (09:46)
[2017-01-17] MEDS: NYSTATIN 15 APPL BTL TP SCH ×2 (09:47→21:21)
[2017-01-17] MEDS: METOPROLOL TARTRATE 50 MG TABLET PO SCH ×2 (09:59→21:20)
[2017-01-17] MEDS: NICOTINE 21 MG PATC TD SCH (11:57)
[2017-01-17] MEDS: PIPERACILLIN SODIUM/TAZOBACTAM 3.375 GM in NORMAL SALINE 100 ML IV SCH (16:31)
[2017-01-17] MEDS ORDERED: ENOXAPARIN SODIUM 40 MG/0.4 ML SYRG SC SCH (18:00)
[2017-01-17] MEDS: AZITHROMYCIN 500 MG in DEXTROSE 5 % IN WATER 250 ML IV SCH ×2 (21:12)
[2017-01-17] MEDS: ATORVASTATIN CALCIUM 40 MG TABLET PO SCH (21:13)
[2017-01-17] MEDS: MONTELUKAST SODIUM 10 MG TABLET PO SCH (21:20)
[2017-01-17] MEDS: CLOPIDOGREL BISULFATE 75 MG TABLET PO SCH (21:21)
[2017-01-18] MEDS: POTASSIUM CHLORIDE 40 MEQ in 0.5 NORMAL SALINE 1,000 ML IV SCH ×2 (00:31→09:01)
[2017-01-18] MEDS: PIPERACILLIN SODIUM/TAZOBACTAM 3.375 GM in NORMAL SALINE 100 ML IV SCH ×2 (00:35→09:02)
[2017-01-18] MEDS: ALBUTEROL SULFATE 2.5 MG/0.5 ML VIAL.NEB IH SCH ×2 (06:01→13:52)
[2017-01-18 06:45] LABS: Hematocrit 36.3 % (42.0-52.0); Hemoglobin 11.6 gm/dL (13.5-18.0); Mean Cell Volume 86.2 fl (78-100); Mean Corpuscular Hemoglobin 27.6 pg (27-31); Mean Platelet Volume 10.1 fl (6.0-9.5); Neutrophil # 6.6 K/mm3 (1.3-6.0); Neutrophil % 73.8 % (42-75.0); Platelet Count 174 K/mm3 (150-450); Red Blood Count 4.21 M/mm3 (4.7-6.0); Red Cell Distribution Width 17.5 % (11.5-14.0); White Blood Count 8.9 K/mm3 (4.0-10.5)
[2017-01-18 06:50] LABS: Anion Gap 9.4 mmol/L (6.8-13.8); Calcium * 8.3 mg/dL (7.9-10.9); Carbon Dioxide 30.3 mmol/L (24-32.6); Estimated Creat Clear 103.7; Potassium 3.7 mmol/L (3.4-4.6)
[2017-01-18] MEDS: PANTOPRAZOLE SODIUM 20 MG TABLET.DR PO SCH (06:53)
[2017-01-18] MEDS: hydrALAZINE HCL 50 MG TABLET PO SCH ×2 (06:53→13:02)
[2017-01-18] MEDS: FLUTICASONE/SALMETEROL 14 PUFF DISK.W.DEV IH SCH (09:01)
[2017-01-18] MEDS: TIOTROPIUM BROMIDE 5 CAP INHALER IH SCH (09:02)
[2017-01-18] MEDS: MULTIVITAMINS 1 CAP CAPSULE PO SCH (09:04)
[2017-01-18] MEDS: ASPIRIN 325 MG TABLET.DR PO SCH (09:04)
[2017-01-18] MEDS: FUROSEMIDE 80 MG TABLET PO SCH (09:04)
[2017-01-18] MEDS: GABAPENTIN 400 MG CAPSULE PO SCH ×2 (09:04→13:02)
[2017-01-18] MEDS: ZINC SULFATE 220 MG CAPSULE PO SCH (09:04)
[2017-01-18] MEDS: POTASSIUM CHLORIDE 20 MEQ TABLET.SA PO SCH (09:04)
[2017-01-18] MEDS: MELOXICAM 15 MG TABLET PO SCH (09:05)
[2017-01-18] MEDS: ASCORBIC ACID 500 MG TABLET PO SCH (09:05)
[2017-01-18] MEDS: METOPROLOL TARTRATE 50 MG TABLET PO SCH (09:05)
[2017-01-18] MEDS: amLODIPine BESYLATE 5 MG TABLET PO SCH (09:05)
[2017-01-18] MEDS: ENALAPRIL MALEATE 20 MG TABLET PO SCH (09:05)
[2017-01-18] MEDS: NYSTATIN 15 APPL BTL TP SCH (09:09)
--- NOTE | 2017-01-18 10:22 | DS ---
(1) Colitis Problem: Acute (2) Pneumonia Problem: Suspected Qualifiers: Pneumonia type: due to unspecified organism Lung location: lower lobe of lung (3) Altered mental status Problem: Acute Qualifiers: Altered mental status type: somnolence Qualified Code(s): R40.0 - Somnolence (4) Sepsis Problem: Suspected Qualifiers: Sepsis type: sepsis due to unspecified organism Qualified Code(s): A41.9 - Sepsis, unspecified organism (5) COPD (chronic obstructive pulmonary disease) Problem: Chronic Qualifiers: COPD type: unspecified COPD Qualified Code(s): J44.9 - Chronic obstructive pulmonary disease, unspecified (6) Diarrhea Problem: Acute Description of Stay: Dread Parr, 66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, who presented on 01/15/2017 via ambulance for AMS. All history was obtained from partner at bedside. She stated that he was recently released from [facility] in December with PN and back in November he was admitted for a NSTEMI where he had a stent placed. She stated at home he had been working with OT and PT, overall he had been weak and not back to his normal self prior to the OH. One day [employer], he wasn't very active, felt worn down, and fatigued which was out of the normal for him. On the morning of admission, she came to the house for breakfast and he was coherent, A+Ox3, c/o of minimal JESSICA. She left for about 2-3 hours and when he came back he said "I don't feel good, my stomach hurts" which came on very sudden and then he stopped responding. She called the ambulance and checked his blood sugar which was 169 and since he had been minimally responsive. He was dry heaving, but no emesis. In the ER he had several episodes of diarrhea, no mention of blood. however he never mentioned this to her. She denies any recent fever, he has had a cough, but this has been ongoing since his PN diagnoses in December. Denies any recent sick contacts. Has chronic LE wheeping edema. She states that he has had issues with urination lately, no dysuria, but hesitancy and incontinence as well as a scratch on his scrotum the home health aide told her about. In the ER workup included a head without abnormality, chest CT with only abnormality being atelectasis/possible early PN, and abdominal CT suggesting colitis. Laboratory findings were notable for: WBC 24.7, h/h 15.9/50 , trop .043, lactic acid 2.2. C-diff negative. Pt wasadmitted to in for further work up of his AMS, lactic acidosis, and possible sepsis. He was started on IV Zosyn and IVF. His C. Diff was negative. His WBC normalized ont he 3rd day. His diarrhea is better. He was told that he needs NH for strengthening by PT but adamanlty refuses. He refused PT evaluation and treatment while in the floor. Procedures Performed: none Discharge Disposition: Home self care Disposition: Home self-care Condition: Stable Discharge Activity: Activity as tolerated Referrals: Magan Lopez MD [Primary Care Provider] - Additional Patient Instructions (free text): Call and fax discharge instructions to [facility] when discharged: . Follow up with his PCP in [facility] in 1 week. Prescriptions (Any new or edited meds): Levofloxacin [Levaquin] 750 mg PO DAILY 5 Days #5 tablet metroNIDAZOLE [Flagyl] 500 mg PO Q8H 5 Days #15 tablet Complete Home Medications List: Complete Home Medication List: Budesonide/Formoterol Fumarate [Symbicort 160-4.5 Mcg Inhaler] 2 puff IH BID #0 05/13/14 Metoprolol Tartrate [Lopressor] 50 mg PO BID #0 05/13/14 Meloxicam [Mobic] 15 mg PO DAILY 07/04/16 Omeprazole 20 mg PO DAILY 07/04/16 Potassium Chloride [Klor-Con M10] 20 meq PO BID 07/04/16 Albuterol Sulfate [Albuterol Sulfate 2.5 MG/3 ML] 2.5 mg IH TID 07/25/16 Montelukast Sodium [Singulair] 10 mg PO HS 07/25/16 Nystatin [Nystop] 1 appl TP BID #60 gm 07/26/16 Calcium Polycarbophil [Fibercon] 625 mg PO QID #120 tablet 08/19/16 DULoxetine HCL [Cymbalta] 60 mg PO DAILY #60 capsule.sa 08/19/16 Multivitamins [Multivitamin Katherin] 1 cap PO DAILY #30 capsule 08/19/16 clonazePAM [Klonopin] 0.5 mg PO HS #30 tablet 08/19/16 hydrALAZINE HCL [Apresoline] 50 mg PO TID@0700,1400,2100 #90 tablet 08/19/16 Gabapentin 400 mg PO TID 11/22/16 Tiotropium [place] [Spiriva] 1 cap IH DAILY 11/22/16 glipiZIDE [Glucotrol] 2.5 mg PO BIDAC 11/22/16 Ascorbic Acid [Vitamin C] 500 mg PO DAILY 01/15/17 Ascorbic Acid [Vitamin C] 500 mg PO DAILY 01/15/17 Aspirin 325 mg PO DAILY 01/15/17 Atorvastatin Calcium [Lipitor] 80 mg PO DAILY 01/15/17 Atorvastatin Calcium [Lipitor] 80 mg PO HS 01/15/17 Clopidogrel Bisulfate [Plavix] 75 mg PO HS 01/15/17 Duloxetine HCl [Cymbalta] 30 mg PO DAILY 01/15/17 Enalapril Maleate [Vasotec] 20 mg PO BID 01/15/17 Furosemide [Lasix] 80 mg PO BID 01/15/17 HYDROcodone/ACETAMINOPHEN [[place] 5-325] 2 each PO Q6H PRN 01/15/17 Zinc 220 mg PO DAILY 01/15/17 amLODIPine BESYLATE [Norvasc] 5 mg PO DAILY 01/15/17 guaiFENesin [Mucinex] 1,200 mg PO BID 01/15/17 Levofloxacin [Levaquin] 750 mg PO DAILY 5 Days #5 tablet 01/18/17 metroNIDAZOLE [Flagyl] 500 mg PO Q8H 5 Days #15 tablet 01/18/17
[2017-01-18] MEDS: HYDROcodone/ACETAMINOPHEN 1 EACH TABLET PO PRN (11:34)
[2017-01-18] MEDS: NICOTINE 21 MG PATC TD SCH (13:02)
[2017-01-18 13:07] VITALS: BP 149/76
== END 2017-01-18 14:25 | disposition home or self-care (01) | DRG 871 ==
LOC: ER 11:08 → MS 18:32
PROVIDERS: ADMIT Internal Medicine; ATTEND Internal Medicine
PROC: 0T9B7ZZ Drainage of Bladder, Via Natural or Artificial Opening (ICD-10-PCS; principal; 2017-01-15)
PROC: 0T9B7ZZ Drainage of Bladder, Via Natural or Artificial Opening (ICD-10-PCS; 2017-01-15)
PROC: 0T9B7ZZ Drainage of Bladder, Via Natural or Artificial Opening (ICD-10-PCS; 2017-01-15)
PROC: BT00ZZZ Plain Radiography of Bladder (ICD-10-PCS; 2017-01-15)
DX: A41.9 Sepsis, unspecified organism (principal); J18.9 Pneumonia, unspecified organism; A09 Infectious gastroenteritis and colitis, unspecified; E87.2 Acidosis; J44.9 Chronic obstructive pulmonary disease, unspecified; I25.2 Old myocardial infarction; Z95.5 Presence of coronary angioplasty implant and graft; Z79.82 Long term (current) use of aspirin; Z99.81 Dependence on supplemental oxygen

== ENCOUNTER 2017-01-25 18:34 | Observation (INO) | payer MEDICARE, MEDICAID ==
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
[2017-01-25 19:29] LABS: Hematocrit 46.3 % (42.0-52.0); Hemoglobin 14.8 gm/dL (13.5-18.0); Mean Cell Volume 87.5 fl (78-100); Mean Platelet Volume 9.5 fl (6.0-9.5); Neutrophil # 12.2 K/mm3 (1.3-6.0); Platelet Count 274 K/mm3 (150-450); Red Blood Count 5.29 M/mm3 (4.7-6.0); Red Cell Distribution Width 18.2 % (11.5-14.0); White Blood Count 15.4 K/mm3 (4.0-10.5)
[2017-01-25 19:40] LABS: Anion Gap 10.9 mmol/L (6.8-13.8); BUN/Creatinine Ratio 18.6 (9.0-21.6); Bilirubin, Total 0.4 mg/dL (0.0-1.1); CRP 3.3 mg/dL (0.0-0.9); Ca. Corrected For Albumin 9.4 mg/dL (8.4-10.2); Calcium * 8.9 mg/dL (7.9-10.9); Carbon Dioxide 31.7 mmol/L (24-32.6); Magnesium 1.7 mg/dL (1.2-2.8); Potassium 3.6 mmol/L (3.4-4.6); Total Protein 6.9 gm/dL (6.2-8.2)
[2017-01-25 20:51] LABS: Urine Bilirubin Negative (NEGATIVE); Urine Blood 25 /ul (NEGATIVE); Urine Ketone Negative (NEGATIVE); Urine Nitrite Negative (NEGATIVE); Urine Protein 15 mg/dL (NEGATIVE); Urine Specific Gravity 1.015 SP.GR. (1.005-1.030); Urine Urobilinogen Normal (NORMAL)
[2017-01-25 21:06] LABS: Urine Appearance Clear; Urine Color Yellow; Urine WBC 0-5 /hpf (0-5)
[2017-01-25 21:07] LABS: Urine Bacteria 1+
[2017-01-25] MEDS ORDERED: NORMAL SALINE 1,000 ML IV ONE (22:48)
[2017-01-25] MEDS ORDERED: VANCOMYCIN HCL 1 GM in DEXTROSE 5 % IN WATER 250 ML IV ONE ×2 (23:30)
[2017-01-25] MEDS ORDERED: MORPHINE SULFATE 2 MG/ML DISP.SYRIN IV ONE (23:32)
[2017-01-25] MEDS ORDERED: MORPHINE SULFATE 2 MG/ML DISP.SYRIN ONE (23:35)
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
[2017-01-26] MEDS ORDERED: HYDROcodone/ACETAMINOPHEN 1 EACH TABLET PO PRN (02:47)
[2017-01-26] MEDS ORDERED: GABAPENTIN 400 MG CAPSULE ONE (03:49)
[2017-01-26] MEDS: GABAPENTIN 400 MG CAPSULE PO SCH ×3 (03:50→13:03)
[2017-01-26 06:00] LABS: Hematocrit 39.7 % (42.0-52.0); Hemoglobin 12.9 gm/dL (13.5-18.0); Mean Cell Volume 87.3 fl (78-100); Mean Corpuscular Hemoglobin 28.4 pg (27-31); Mean Corpuscular Hgb Conc 32.5 g/dl (32-36); Mean Platelet Volume 9.5 fl (6.0-9.5); Neutrophil # 7.5 K/mm3 (1.3-6.0); Neutrophil % 68.2 % (42-75.0); Platelet Count 226 K/mm3 (150-450); Red Blood Count 4.55 M/mm3 (4.7-6.0)
[2017-01-26 06:08] LABS: Anion Gap 8.8 mmol/L (6.8-13.8); BUN/Creatinine Ratio 18.4 (9.0-21.6); Calcium * 8.4 mg/dL (7.9-10.9); Carbon Dioxide 28.6 mmol/L (24-32.6); Estimated Creat Clear 114.2; Potassium 3.4 mmol/L (3.4-4.6)
[2017-01-26] MEDS ORDERED: ALBUTEROL SULFATE 2.5 MG/0.5 ML VIAL.NEB IH ONE (06:11)
[2017-01-26] MEDS: ALBUTEROL SULFATE 2.5 MG/3 ML VIAL.NEB IH SCH ×2 (06:14→12:52)
[2017-01-26] MEDS ORDERED: NICOTINE 21 MG PATC TD SCH (06:30)
[2017-01-26] MEDS ORDERED: PANTOPRAZOLE SODIUM 20 MG TABLET.DR PO SCH (07:00)
[2017-01-26] MEDS ORDERED: glipiZIDE 5 MG TABLET PO SCH (07:00)
[2017-01-26] MEDS: hydrALAZINE HCL 50 MG TABLET PO SCH ×2 (07:45→13:03)
[2017-01-26] MEDS ORDERED: MELOXICAM 15 MG TABLET PO SCH (09:00)
[2017-01-26] MEDS ORDERED: ENALAPRIL MALEATE 20 MG TABLET PO SCH (09:00)
[2017-01-26] MEDS ORDERED: DULoxetine HCL 30 MG CAPSULE.SA PO SCH (09:00)
[2017-01-26] MEDS ORDERED: amLODIPine BESYLATE 5 MG TABLET PO SCH (09:00)
[2017-01-26] MEDS ORDERED: TIOTROPIUM BROMIDE 5 CAP INHALER IH SCH (09:00)
[2017-01-26] MEDS ORDERED: amLODIPine BESYLATE 10 MG TABLET PO SCH (09:00)
[2017-01-26] MEDS ORDERED: FUROSEMIDE 80 MG TABLET PO SCH (09:00)
[2017-01-26] MEDS ORDERED: ZINC GLUCONATE 50 MG TABLET PO SCH (09:00)
[2017-01-26] MEDS ORDERED: POTASSIUM CHLORIDE 10 MEQ TABLET.SA PO SCH (09:00)
[2017-01-26] MEDS ORDERED: METOPROLOL TARTRATE 50 MG TABLET PO SCH (09:00)
[2017-01-26] MEDS ORDERED: MULTIVITAMINS 1 CAP CAPSULE PO SCH (09:00)
[2017-01-26] MEDS ORDERED: FLUTICASONE/SALMETEROL 14 PUFF DISK.W.DEV IH SCH (09:00)
[2017-01-26] MEDS ORDERED: ASCORBIC ACID 500 MG TABLET PO SCH (09:00)
[2017-01-26] MEDS ORDERED: ATORVASTATIN CALCIUM 40 MG TABLET PO SCH ×2 (09:00→21:00)
[2017-01-26] MEDS ORDERED: NYSTATIN 15 APPL BTL TP SCH (09:00)
[2017-01-26] MEDS ORDERED: ASPIRIN 325 MG TABLET.DR PO SCH (09:00)
[2017-01-26] MEDS ORDERED: POTASSIUM CHLORIDE 20 MEQ TABLET.SA PO SCH (09:00)
[2017-01-26] MEDS ORDERED: CLINDAMYCIN HCL 150 MG CAPSULE PO SCH (09:45)
[2017-01-26] MEDS: CALCIUM POLYCARBOPHIL 625 MG TABLET PO SCH ×2 (09:46→13:03)
[2017-01-26 10:58] VITALS: BP 148/72
--- NOTE | 2017-01-26 11:32 | DS ---
(1) Cellulitis Problem: Acute Qualifiers: Site of cellulitis: extremity Site of cellulitis of extremity: lower extremity Laterality: unspecified laterality Qualified Code(s): L03.119 - Cellulitis of unspecified part of limb Description of Stay: Dread is a 66 yo male admitted for cellulitis. He was given a dose of vancomycin in the ER, but had not been treated as outpatient. He was changed to clindamycin and tolerated this medications. He had stable vitals and his cellulitis was not complicated to require inpatient management. He was discharged to home on clindamycin. Procedures Performed: none Discharge Disposition: Home self care Disposition: Home self-care Condition: Fair Discharge Activity: Activity as tolerated Discharge Diet: Low salt Referrals: Andres Abreu DO [Staff Physician] - Two Weeks Problem Oriented Discharge Instructions to Patient/Family: Cellulitis, Adult, [id number] Additional Patient Instructions (free text): RESUME SERVICES WITH [facility]. PATIENT'S NURSE IS VANITA CUNHA. PHONE [phone]. FAX D/C TO [phone]. Follow up with Dr. Abreu on 02-14-17 @ 10:00am Complete Home Medications List: Complete Home Medication List: Budesonide/Formoterol Fumarate [Symbicort 160-4.5 Mcg Inhaler] 2 puff IH BID #0 05/13/14 Metoprolol Tartrate [Lopressor] 50 mg PO BID #0 05/13/14 Meloxicam [Mobic] 15 mg PO DAILY 07/04/16 Omeprazole 20 mg PO DAILY 07/04/16 Potassium Chloride [Klor-Con M10] 20 meq PO BID 07/04/16 Albuterol Sulfate [Albuterol Sulfate 2.5 MG/3 ML] 2.5 mg IH TID 07/25/16 Montelukast Sodium [Singulair] 10 mg PO HS 07/25/16 Nystatin [Nystop] 1 appl TP BID #60 gm 07/26/16 Calcium Polycarbophil [Fibercon] 625 mg PO QID #120 tablet 08/19/16 DULoxetine HCL [Cymbalta] 60 mg PO DAILY #60 capsule.sa 08/19/16 Multivitamins [Multivitamin Katherin] 1 cap PO DAILY #30 capsule 08/19/16 clonazePAM [Klonopin] 0.5 mg PO HS #30 tablet 08/19/16 hydrALAZINE HCL [Apresoline] 50 mg PO TID@0700,1400,2100 #90 tablet 08/19/16 Gabapentin 400 mg PO TID 11/22/16 Tiotropium [place] [Spiriva] 1 cap IH DAILY 11/22/16 Ascorbic Acid [Vitamin C] 500 mg PO DAILY 01/15/17 Aspirin 325 mg PO DAILY 01/15/17 Atorvastatin Calcium [Lipitor] 80 mg PO DAILY 01/15/17 Clopidogrel Bisulfate [Plavix] 75 mg PO HS 01/15/17 Enalapril Maleate [Vasotec] 20 mg PO BID 01/15/17 Furosemide [Lasix] 80 mg PO DAILY 01/15/17 HYDROcodone/ACETAMINOPHEN [[place] 5-325] 2 each PO Q6H PRN 01/15/17 Zinc 220 mg PO DAILY 01/15/17 amLODIPine BESYLATE [Norvasc] 5 mg PO DAILY 01/15/17 guaiFENesin [Mucinex] 1,200 mg PO BID 01/15/17 glipiZIDE [Glipizide] 2.5 mg PO BID 02/09/17
[2017-01-26] MEDS ORDERED: MONTELUKAST SODIUM 10 MG TABLET PO SCH (21:00)
[2017-01-26] MEDS ORDERED: clonazePAM 0.5 MG TABLET PO SCH (21:00)
[2017-01-26] MEDS ORDERED: CLOPIDOGREL BISULFATE 75 MG TABLET PO SCH (21:00)
[2017-01-27] MEDS ORDERED: ZINC SULFATE 220 MG CAPSULE PO SCH (09:00)
== END 2017-01-26 15:54 | disposition home health service (06) ==
LOC: ER 18:34 → UNDOADMOB 23:47 → MS 23:47
PROVIDERS: ADMIT Nurse Practitioner; ATTEND Family Medicine
DX: J44.9 Chronic obstructive pulmonary disease, unspecified; L03.115 Cellulitis of right lower limb; I73.9 Peripheral vascular disease, unspecified; E11.9 Type 2 diabetes mellitus without complications; G89.4 Chronic pain syndrome; Z91.81 History of falling; E78.5 Hyperlipidemia, unspecified; Z87.891 Personal history of nicotine dependence; F43.12 Post-traumatic stress disorder, chronic; I10 Essential (primary) hypertension; Z79.4 Long term (current) use of insulin; L03.116 Cellulitis of left lower limb
CPT/HCPCS: 36415; 71010; 74000; 80048; 80053; 81001; 83605; 83735; 83880; 85025; 86140; 87040; 94640; 96365; 96375; 99284; G0378